=== PATIENT | male | born 1970 | race Caucasian/White ===

== ENCOUNTER 2020-12-07 11:15 | Outpatient (REF) | payer MEDICARE, MEDICAID, SELFPAY ==
[2020-12-07 14:02] LABS: MANUAL DIFF FLAG NO
[2020-12-07 14:12] LABS: Basophils Percent Auto 0.3 % (0-2); Eosinophils Absolute Auto 0.2 X10*3/uL (0.0-0.4); Eosinophils Percent Auto 1.8 % (0-4); Hematocrit 47.2 % (42-52); Hemoglobin 15.7 g/dl (14.0-18.0); Imm Gran Abs Auto 0.02 X10*3/uL (0.00-0.03); Imm Gran Pct Auto 0.2 % (0.0-0.4); Lymphocytes Absolute Auto 2.7 X10*3/uL (1.2-4.9); Lymphocytes Percent Auto 31.1 % (20-40); Mean Corpuscular HGB Conc 33.3 g/dl (31.0-36.0); Mean Corpuscular Hemoglobin 32.1 pg (27.0-33.0); Mean Corpuscular Volume 96.5 fL (80-98); Mean Platelet Volume 11.6 fL (9.4-12.4); Monocytes Absolute Auto 0.5 X10*3/uL (0.1-1.2); Monocytes Percent Auto 6.1 % (2-11); Neutrophils Absolute Auto 5.3 X10*3/uL (2.0-8.3); Neutrophils Percent Auto 60.5 % (45-73); Platelet Count 200 X10*3/uL (160-400); Red Blood Count 4.89 X10*6/uL (4.60-5.80); White Blood Count 8.7 X10*3/uL (4.8-10.8)
[2020-12-07 14:21] LABS: Estimated Average Glucose 128 mg/dL; Hemoglobin A1c % 6.1 %
[2020-12-07 14:40] LABS: Alanine Aminotransferase 36 U/L (0-40); Albumin Level 4.6 g/dL (3.5-5.0); Alkaline Phosphatase 50 U/L (39-117); Anion Gap 16 (12-20); Aspartate Amino Transferase 32 U/L (5-37); Bilirubin Total 0.6 mg/dL (0.0-1.0); Blood Urea Nitrogen 10 mg/dL (9-16); Calcium 9.4 mg/dL (8.4-10.2); Carbon Dioxide 23 mmol/L (22-29); Chloride 105 mmol/L (96-108); Cholesterol 166 mg/dL; Estimated Glomerular Filt Rate > 60; Glucose Random 116 mg/dL (60-115); HDL Cholesterol 29 mg/dL; LDL Cholesterol Calculated 90 mg/dl; Potassium 4.1 mmol/L (3.3-5.1); Sodium 140 mmol/L (135-145); Total Protein 7.1 g/dL (6.5-8.0); Triglycerides 236 mg/dL
[2020-12-07 14:47] LABS: Free T4 (Free Thyroxine) 0.88 ng/dL (0.71-1.85); Thyroid Stimulating Hormone 0.94 uIU/mL (0.32-4.0)
[2020-12-07 16:53] LABS: Folate 8.5 ng/mL (> or = 4.0); Vitamin B12 612 pg/mL (200-900)
== END 2020-12-07 11:16 | disposition home or self-care (01) ==
LOC: HO.HMGCLDS 11:15
PROVIDERS: PCP Internal Medicine; Visit Provider Internal Medicine
DX: E78.00 Pure hypercholesterolemia, unspecified (principal); F20.1 Disorganized schizophrenia; R73.02 Impaired glucose tolerance (oral)
CPT/HCPCS: 36415; 80053; 80061; 82607; 82746; 83036; 84439; 84443; 85025

== ENCOUNTER 2021-11-11 09:32 | Outpatient (REF) | payer MEDICARE, SELFPAY ==
[2021-11-11 12:06] LABS: MANUAL DIFF FLAG NO
[2021-11-11 12:12] LABS: Basophils Absolute Auto 0.1 X10*3/uL (0.0-0.2); Basophils Percent Auto 0.7 % (0-2); Eosinophils Absolute Auto 0.4 X10*3/uL (0.0-0.4); Eosinophils Percent Auto 4.6 % (0-4); Hematocrit 47.8 % (42.0-52.0); Hemoglobin 15.8 g/dl (14.0-18.0); Imm Gran Abs Auto 0.02 X10*3/uL (0.00-0.03); Imm Gran Pct Auto 0.3 % (0.0-0.4); Lymphocytes Absolute Auto 2.8 X10*3/uL (1.2-4.9); Mean Corpuscular HGB Conc 33.1 g/dl (31.0-36.0); Mean Corpuscular Hemoglobin 31.3 pg (27.0-33.0); Mean Corpuscular Volume 94.8 fL (80.0-98.0); Mean Platelet Volume 11.8 fL (9.4-12.4); Monocytes Absolute Auto 0.6 X10*3/uL (0.1-1.2); Monocytes Percent Auto 7.8 % (2-11); Neutrophils Absolute Auto 3.8 x10*3/uL (2.0-8.3); Neutrophils Percent Auto 49.6 % (45-73); Platelet Count 190 X10*3/uL (160-400); Red Blood Count 5.04 X10*6/uL (4.60-5.80); White Blood Count 7.6 X10*3/uL (4.8-10.8)
[2021-11-11 12:49] LABS: Free T4 (Free Thyroxine) 0.99 ng/dL (0.71-1.85); Thyroid Stimulating Hormone 0.56 uIU/mL (0.32-4.0)
[2021-11-11 12:56] LABS: Alanine Aminotransferase 31 U/L (0-40); Albumin Level 4.5 g/dL (3.5-5.0); Alkaline Phosphatase 46 U/L (39-117); Anion Gap 12 (12-20); Aspartate Amino Transferase 23 U/L (5-37); Bilirubin Total 0.6 mg/dL (0.0-1.0); Blood Urea Nitrogen 12 mg/dL (9-16); Calcium 9.6 mg/dL (8.4-10.2); Carbon Dioxide 24 mmol/L (22-29); Chloride 108 mmol/L (96-108); Cholesterol 147 mg/dL; Estimated Average Glucose 148 mg/dL; Estimated Glomerular Filt Rate > 60; Glucose Random 155 mg/dL (60-115); HDL Cholesterol 27 mg/dL; Hemoglobin A1c % 6.8 %; LDL Cholesterol Calculated 79 mg/dl; Potassium 4.1 mmol/L (3.3-5.1); Sodium 140 mmol/L (135-145); Total Protein 6.9 g/dL (6.5-8.0); Triglycerides 208 mg/dL
[2021-11-11 13:03] LABS: Folate 10.6 ng/mL (> or = 4.0); Vitamin B12 574 pg/mL (200-900)
== END 2021-11-11 09:33 | disposition home or self-care (01) ==
LOC: HO.HMGCLDS 09:32
PROVIDERS: Visit Provider Internal Medicine
DX: E78.00 Pure hypercholesterolemia, unspecified (principal); R73.02 Impaired glucose tolerance (oral)
CPT/HCPCS: 36415; 80053; 80061; 82607; 82746; 83036; 84439; 84443; 85025

== ENCOUNTER 2022-02-11 09:46 | Outpatient (REF) | payer MEDICARE, SELFPAY ==
[2022-02-11 13:39] LABS: Creatinine Urine 71.87 mg/dL
[2022-02-11 14:12] LABS: Microalbum/Creatinine Ratio Ur 6.9 ug/mg cr
== END 2022-02-11 09:47 | disposition home or self-care (01) ==
LOC: HO.HMGCLDS 09:46
PROVIDERS: PCP Internal Medicine; Visit Provider Internal Medicine
DX: E11.65 Type 2 diabetes mellitus with hyperglycemia (principal)
CPT/HCPCS: 82043

== ENCOUNTER → 2022-04-10 10:40 | Outpatient (BNVA) | payer MEDICARE, SELFPAY | PROVIDERS: PCP Internal Medicine; Visit Provider Physician Assistant | DX: Z01.818 Encounter for other preprocedural examination (principal); K21.9 Gastro-esophageal reflux disease without esophagitis | CPT/HCPCS: 99202 ==

== ENCOUNTER 2022-08-12 10:40 | Outpatient (REF) | payer OTHER, SELFPAY ==
[2022-08-12 14:12] LABS: MANUAL DIFF FLAG NO
[2022-08-12 14:18] LABS: Basophils Absolute Auto 0.1 X10*3/uL (0.0-0.2); Basophils Percent Auto 0.6 % (0-2); Eosinophils Absolute Auto 0.4 X10*3/uL (0.0-0.4); Hematocrit 48.9 % (42.0-52.0); Hemoglobin 16.3 g/dl (14.0-18.0); Imm Gran Abs Auto 0.03 X10*3/uL (0.00-0.03); Imm Gran Pct Auto 0.4 % (0.0-0.4); Lymphocytes Absolute Auto 2.7 X10*3/uL (1.2-4.9); Lymphocytes Percent Auto 33.7 % (20-40); Mean Corpuscular HGB Conc 33.3 g/dl (31.0-36.0); Mean Corpuscular Volume 96.1 fL (80.0-98.0); Mean Platelet Volume 11.5 fL (9.4-12.4); Monocytes Absolute Auto 0.6 X10*3/uL (0.1-1.2); Monocytes Percent Auto 7.4 % (2-11); Neutrophils Absolute Auto 4.2 x10*3/uL (2.0-8.3); Neutrophils Percent Auto 52.9 % (45-73); Platelet Count 211 X10*3/uL (160-400); Red Blood Count 5.09 X10*6/uL (4.60-5.80); Red Cell Distribution Width 13.1 % (11.0-16.0)
[2022-08-12 14:42] LABS: Alanine Aminotransferase 19 U/L (0-40); Albumin Level 4.8 g/dL (3.5-5.0); Alkaline Phosphatase 45 U/L (39-117); Anion Gap 13 (12-20); Aspartate Amino Transferase 16 U/L (5-37); Bilirubin Total 0.5 mg/dL (0.0-1.0); Blood Urea Nitrogen 17 mg/dL (9-16); Calcium 10.6 mg/dL (8.4-10.2); Carbon Dioxide 28 mmol/L (22-29); Chloride 106 mmol/L (96-108); Cholesterol 138 mg/dL; Estimated Glomerular Filt Rate > 60; Glucose Random 108 mg/dL (60-115); HDL Cholesterol 32 mg/dL; LDL Cholesterol Calculated 81 mg/dl; Potassium 4.5 mmol/L (3.3-5.1); Sodium 142 mmol/L (135-145); Total Protein 7.1 g/dL (6.5-8.0); Triglycerides 127 mg/dL
[2022-08-12 14:55] LABS: Estimated Average Glucose 105 mg/dL; Hemoglobin A1c % 5.3 %
[2022-08-12 15:04] LABS: Creatinine Urine 182.64 mg/dL; Microalbum/Creatinine Ratio Ur 8.7 ug/mg cr
[2022-08-12 15:07] LABS: Free T4 (Free Thyroxine) 0.91 ng/dL (0.71-1.85); Thyroid Stimulating Hormone 0.57 uIU/mL (0.32-4.0)
[2022-08-12 15:14] LABS: Folate 10.6 ng/mL (> or = 4.0); Vitamin B12 1100 pg/mL (200-900)
== END 2022-08-12 10:41 | disposition home or self-care (01) ==
LOC: HO.HMGCLDS 10:40
PROVIDERS: PCP Internal Medicine; Visit Provider Internal Medicine
DX: E11.65 Type 2 diabetes mellitus with hyperglycemia (principal); E78.00 Pure hypercholesterolemia, unspecified
CPT/HCPCS: 36415; 80053; 80061; 82043; 82607; 82746; 83036; 84439; 84443; 85025

== ENCOUNTER 2022-09-05 08:41 | Day surgery (SDC) | payer OTHER, MEDICAID, SELFPAY ==
[2022-09-01 10:29] VITALS: BMI 34.2
--- NOTE | 2022-09-04 10:34 | HO.ANESPROP2 ---
Documented by User: Ethel Carter NP 09/04/22 10:35 HPI - Anesthesia Eval Consult details Narrative: 51yo M for Upper Endoscopy and Colonoscopy [facility] Active Problems Active Problems: All Active Problems (Updated 09/01/22 @ 10:15 by Swetha Perry, RN) Type 2 diabetes mellitus with hyperglycemia (Acute) Medicare annual wellness visit, initial (Acute) Hypercalcemia (Acute) Asthma (Acute) Tobacco abuse (Acute) Hypercholesterolemia (Acute) GERD (gastroesophageal reflux disease) (Acute) Obesity (BMI 30-39.9) (Acute) Schizophrenia (Acute) Past Medical History Medical History (Updated 09/01/22 @ 10:15 by Swetha Perry RN) Annual physical exam Asthma Colon cancer screening GERD (gastroesophageal reflux disease) Hypercholesterolemia Impacted cerumen of both ears Obesity (BMI 30-39.9) Schizophrenia Tobacco abuse Family History Family History Father Medical history unknown Mother CVD (cardiovascular disease) Brother No problems noted. Sister No problems noted. Surgical History Surgical History History of nasal surgery Social History Social History (Updated 04/10/22 @ 10:48 by Estela Frias PA-C) Household Members Other:: lives alone Housing: Apartment Alcohol intake: never Patient Tobacco Use Status: Current everyday Tobacco user Tobacco use type: Cigarette Cigarette Packs Per Day: 1 Cigarettes Per Day: 20.0 Years Smoked: started 14 years old e-Cigarette/Vaping Use: Never Used Second Hand Smoke Exposure: Yes Use of substances other than those prescribed or required for medical reasons: No Are you DNR?: No Advance Directives: No Advance Directives Information Provided: Yes service: No Current occupational status: disabled Cognitive needs: No Hearing needs: No Vision needs: No Meds Allergies Allergy/AdvReac Type Severity Reaction Status Date / Time cantaloupe Allergy Unknown allergy Verified 08/19/22 12:59 cucumber Allergy Unknown allergy Verified 08/19/22 12:59 watermelon Allergy Unknown allergy Verified 08/19/22 12:59 Home Medications Medication Instructions Recorded Confirmed Last Taken Type aripiprazole 30 mg tablet (Abilify) 30 mg PO DAILY 08/14/20 09/01/22 Unknown History bupropion HCl 100 mg tablet,12 hr 100 mg PO DAILY 08/14/20 09/01/22 Unknown History sustained-release (Wellbutrin SR) haloperidol 5 mg tablet 5 mg PO BEDTIME 08/14/20 09/01/22 Unknown History naltrexone 50 mg tablet 50 mg PO DAILY 08/14/20 09/01/22 Unknown History Exam Exam Date and Time: September 04, 2022 1034 Height,Weight and Vital Signs: Height 5 ft 1 in Weight 82.1 kg Pertinent Lab Results Pertinent Lab Results: Laboratory Tests 08/12/22 08/12/22 10:50 10:50 WBC 8.0 Hgb 16.3 Hct 48.9 Plt Count 211 Sodium 142 Potassium 4.5 Chloride 106 Carbon Dioxide 28 BUN 17 H Creatinine 1.25 Assessment and Plan Assessment Anesthesia Assessment: Chart Reviewed Documented by User: Veronica Billings MD 09/05/22 10:12 PMFSH Past Medical History Medical History (Updated 09/01/22 @ 10:15 by Swetha Perry RN) Annual physical exam Asthma Colon cancer screening GERD (gastroesophageal reflux disease) Hypercholesterolemia Impacted cerumen of both ears Obesity (BMI 30-39.9) Schizophrenia Tobacco abuse Family History Family History Father Medical history unknown Mother CVD (cardiovascular disease) Brother No problems noted. Sister No problems noted. Family history of problems with anesthesia: No Surgical History Surgical History History of nasal surgery History of Problems with Anesthesia: No Social History Social History (Updated 04/10/22 @ 10:48 by Estela Frias PA-C) Household Members Other:: lives alone Housing: Apartment Alcohol intake: never Patient Tobacco Use Status: Current everyday Tobacco user Tobacco use type: Cigarette Cigarette Packs Per Day: 1 Cigarettes Per Day: 20.0 Years Smoked: started 14 years old e-Cigarette/Vaping Use: Never Used Second Hand Smoke Exposure: Yes Use of substances other than those prescribed or required for medical reasons: No Are you DNR?: No Advance Directives: No Advance Directives Information Provided: Yes service: No Current occupational status: disabled Cognitive needs: No Hearing needs: No Vision needs: No Meds Allergies Allergy/AdvReac Type Severity Reaction Status Date / Time cantaloupe Allergy Unknown allergy Verified 08/19/22 12:59 cucumber Allergy Unknown allergy Verified 08/19/22 12:59 watermelon Allergy Unknown allergy Verified 08/19/22 12:59 Home Medications Medication Instructions Recorded Confirmed Last Taken Type aripiprazole 30 mg tablet (Abilify) 30 mg PO DAILY 08/14/20 09/01/22 Unknown History bupropion HCl 100 mg tablet,12 hr 100 mg PO DAILY 08/14/20 09/01/22 Unknown History sustained-release (Wellbutrin SR) haloperidol 5 mg tablet 5 mg PO BEDTIME 08/14/20 09/01/22 Unknown History naltrexone 50 mg tablet 50 mg PO DAILY 08/14/20 09/01/22 Unknown History Exam Airway Mallampati Class: II TM Dist: >3cm Neck ROM: Full Heart: rrr Lungs: cts Assessment and Plan Assessment Anesthesia Assessment: Anesthesia Plan Discussed Final Anesthetic Review Family History of Problems with Anesthesia: No History of Problems with Anesthesia: No NPO: Yes ASA Class: III Final Preanesthetic Review: No Changes in Pt Med Stat, Meds/Allgs Chart Reviewed, Consent Obtained/Reviewed and Anes Risks/Benef Reviewed Patient Risk: Intermediate Procedure Risk: Low Anesthetic Plan Anesthetic Plan: MAC: Disposition: Standard PACU
[2022-09-05 09:37] VITALS: BP 132/92; PULSE 89; RESP 16; TEMP 36.5; O2SAT 97; BMI 34.0
[2022-09-05 09:41] VITALS: BMI 34.0
[2022-09-05 10:04] LABS: Glucose, Whole Blood 102 mg/dL (60-115)
--- NOTE | 2022-09-05 10:15 | MHC.SHP ---
Pre-Procedural Eval Section A Date of Service: 09/05/22 The patient is an INPATIENT: No The History & Physical has been completed within 30 days and I have reviewed it.: No Section B Chief Complaint: screening,reflux Details of Present Illness: colon cancer screening, GERD Relevant Family History (Specify if Yes): No Relevant Social History: Tobacco Use Present Medications: see Short Stay Collaborative assessment Medical History: Significant History (Asthma GERD (gastroesophageal reflux disease) Hypercholesterolemia Obesity (BMI 30-39.9) Schizophrenia Tobacco abuse) History of Previous Operations: Relevant previous surgery/procedure and date(s) (hx of nasal surgery) Allergies: Allergies Allergy/AdvReac Type Severity Reaction Status Date / Time cantaloupe Allergy Unknown allergy Verified 08/19/22 12:59 cucumber Allergy Unknown allergy Verified 08/19/22 12:59 watermelon Allergy Unknown allergy Verified 08/19/22 12:59 Review of Systems Sugical H&P ROS: Negative: Constitution, Cardiovascular, Respiratory and Gastrointestinal Exam Surgical H&P Exam: Normal: Heart, Normal: Lungs, Normal: Extremities and Normal: Abdomen Plan Diagnosis/Plan: Unchanged I have reviewed the history and physical and performed a pertinent physical examination on my patient. No changes have occurred unless specified. Time Spent With Patient Time: Total time managing care of this patient today ____ minutes.
[2022-09-05] MEDS: Lactated Ringers 1,000 ML 100 ML IVCONT (10:20)
--- NOTE | 2022-09-05 10:27 | PM.OP ---
Brief Operative Note Date of Service: 09/05/22 Pre-op diagnosis: Colon cancer screening, GERD Post-op diagnosis: other (GERD, GASTRITIS, COLON POLYPS, DIVERTICULOSIS, HEMORRHOIDS) Procedure: EGD WITH BIOPSIES COLONOSCOPY TILL CECUM WITH BIOPSIES AND SNARE POLYPECTOMY Surgeon: Trupti Dominguez MD Anesthesia: MAC Was an Machine Rug Cleaner used for this Procedure?: Yes Machine Rug Cleaner: Larissa Vanegas Estimated blood loss (mL): 0 Pathology: other ( A. small bowel bxs, R/O celiac B. gastric antrum bxs, R/O H. pylori C. G-E junction bxs, R/O Benoit's D. sigmoid polyps (2) E. rectal polyps (2)) Condition: stable Disposition: PACU
--- NOTE | 2022-09-05 10:27 | W.PM.OPN ---
Operative Note Operative Note Date of Service: 09/05/22 Narrative: Pre-op diagnosis: Colon cancer screening, GERD Post-op diagnosis:?other (GERD, GASTRITIS, COLON POLYPS, DIVERTICULOSIS, HEMORRHOIDS) Surgeon: Trupti Dominguez MD Anesthesia:?MAC FLEXIBLE TRANSORAL UPPER GASTROINTESTINAL ENDOSCOPY WITH BIOPSIES AND COLONOSCOPY TILL CECUM WITH BIOPSIES AND SNARE POLYPECTOMY UPPER ENDOSCOPY Consent: Indications for the procedure and potential complications of bleeding, perforation, reaction to medications and missed diagnosis were discussed with the patient and informed consent was obtained. Instrument: Olympus GIF H 190 mid size upper endoscope Monitoring: Vital signs and clinical assessment, continuous EKG monitoring, Pulse oximetry, Carbon Dioxide monitoring and blood pressure monitoring were done throughout the procedure. Procedure: The patient was placed in the left lateral decubitis position and pre-procedure medications were administered and a bite block was placed. The endoscope was inserted into the mouth and advanced under direct vision to the third part of duodenum. A careful inspection was made as the upper endoscope was withdrawn including a retroflexed examination of the proximal stomach; Findings and interventions are described below. Findings: Larynx: Normal Esophagus: GE junction at 38 cms, hiatal hernia 38 to 40 cms. Two 1.5 - 2 cms tongues of suspected Benoit's - biopsied. Stomach: Mild gastric erythema. Biopsies were obtained. Grade 2 flap valve on retroflexed examination of the cardia. Duodenum: Normal bulb and descending duodenum. Biopsies obtained from 3rd part of the duodenum Intervention: Biopsies as noted above COLONOSCOPY PROCEDURE NOTE Consent: Indications for the procedure and potential complications of bleeding, perforation, reaction to medications and missed diagnosis were discussed with the patient and informed consent was obtained. Instrument: Olympus PCF H 190 L variable stiffness pediatric colonoscope Monitoring: Vital signs and clinical assessment, intermittent blood pressure monitoring, continuous EKG monitoring, Pulse oximetry and Carbon Dioxide monitoring were done throughout the procedure. Colon withdrawl time was 21 minutes. Procedure: The patient was placed in the left lateral decubitis position and pre-procedure medications were administered. After a digital rectal examination of the ano-rectum, the video colonoscope was inserted into the rectum and advanced through the colon to the cecum. The colonoscope was slowly withdrawn in a retrograde panoramic fashion and the colon mucosa was carefully examined including a retroflexed view of the rectum. Findings and interventions are described below. Procedure Difficulty: : Without difficulty Findings: Terminal Ileum: Not evaluated Cecum: Partially evaluated due to adherent stools in the right colon Ascending Colon: Partially evaluated due to adherent stools in the right colon Transverse Colon: Normal Descending Colon: Moderate diverticulosis Sigmoid Colon: Two 8 to 12 mm sessile polyps - removed with a cold biopsy and a cold snare. Moderate diverticulosis. Rectum: A 12 mm sessile polyp - removed with a hot snare. A few 5 to 10 mm diminutive appearing polyps 1 removed with a cold biopsy Ano-rectum: Moderate internal hemorrhoids Colon preparation: Good in the transverse and left colon and Fair in the right colon due to adherent stools Impression and Post Procedure Diagnosis: Endoscopy Findings: ESOPHAGUS: Hiatal hernia, possible Benoti's STOMACH: Gastritis DUODENUM: Normal - biopsied to check for celiac sprue Colonoscopy Findings: Four small to medium sized polyps removed Moderate diverticulosis seen in the left colon Moderate hemorrhoids on retroflexed exam. Plan: Await pathology results Patient has an appointment on 09/18/22 in the [facility] with LENY Ybarra. Repeat Colonoscopy interval based on path results - in 1-2 years if polyps are adenomatous and due to fair prep in the right colon. Above findings were reviewed with the patient and GERD, colon polyps and diverticulosis handouts were given in the discharge area
[2022-09-05 11:45] VITALS: BP 105/72; PULSE 88; RESP 16; TEMP 37.6; O2SAT 98
[2022-09-05 12:00] VITALS: BP 127/87; PULSE 85; RESP 16; TEMP 37; O2SAT 97
== END 2022-09-05 12:35 | disposition home or self-care (01) ==
PROVIDERS: PCP Internal Medicine; Visit Provider Internal Medicine Gastroenterology
PROC: (CPT 45385; principal; 2022-09-05 10:20)
DX: Z12.11 Encounter for screening for malignant neoplasm of colon (principal); D12.8 Benign neoplasm of rectum; K63.5 Polyp of colon; K57.30 Diverticulosis of large intestine without perforation or abscess without bleeding; K64.8 Other hemorrhoids; K21.9 Gastro-esophageal reflux disease without esophagitis; K29.50 Unspecified chronic gastritis without bleeding; K44.9 Diaphragmatic hernia without obstruction or gangrene; J45.909 Unspecified asthma, uncomplicated; E78.00 Pure hypercholesterolemia, unspecified; F20.9 Schizophrenia, unspecified; E66.9 Obesity, unspecified; Z68.34 Body mass index [BMI] 34.0-34.9, adult; Z79.84 Long term (current) use of oral hypoglycemic drugs; Z79.899 Other long term (current) drug therapy; F17.210 Nicotine dependence, cigarettes, uncomplicated
CPT/HCPCS: 45385; 45380; 43239; 82947; 88305; 88342

== ENCOUNTER 2022-09-17 10:47 | Outpatient (REF) | payer OTHER, SELFPAY ==
[2022-09-17 14:21] LABS: Calcium 9.3 mg/dL (8.4-10.2)
[2022-09-18 12:39] LABS: Calcium (PTHI) 9.6 mg/dL (8.6-10.3); PTHI 12 pg/mL (16-77)
== END 2022-09-17 10:48 | disposition home or self-care (01) ==
LOC: HO.HMGCLDS 10:47
PROVIDERS: PCP Internal Medicine; Visit Provider Internal Medicine
DX: E11.65 Type 2 diabetes mellitus with hyperglycemia (principal); E83.52 Hypercalcemia
CPT/HCPCS: 36415; 82310; 83970

== ENCOUNTER → 2022-09-18 10:55 | Outpatient (BNVA) | payer OTHER, SELFPAY | PROVIDERS: PCP Internal Medicine; Visit Provider Physician Assistant | DX: Z13.89 Encounter for screening for other disorder (principal) ==

== ENCOUNTER 2023-02-17 13:37 | Outpatient (AMB) | payer OTHER, MEDICAID, SELFPAY ==
--- NOTE | 2023-02-17 13:38 | AM.OFFVISMDC ---
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 Distributor Required: No Accompanied by: career consultant Allergies cantaloupe Allergy (Unknown, Verified 02/17/23 13:39) allergy cucumber Allergy (Unknown, Verified 02/17/23 13:39) allergy watermelon Allergy (Unknown, Verified 02/17/23 13:39) allergy Medication List - Last Reconciled 02/17/23 by Melodie Berman MD aripiprazole (Abilify) 30 mg PO DAILY blood sugar diagnostic ([facility] No Coding strips) As directed check the blood sugars once a day blood-glucose meter ([facility] Autocode Blood Glucose Monitoring System) As directed bupropion HCl (Wellbutrin SR) 100 mg PO DAILY cholecalciferol (vitamin D3) 25 mcg PO DAILY docusate sodium (Colace) 200 mg (2 x 100 mg) PO BEDTIME famotidine 40 mg PO BID fenofibrate 160 mg PO DAILY 90 days haloperidol 5 mg PO BEDTIME lancets ([facility] Lancets) As directed check the blood sugar once a day lisinopril 2.5 mg PO DAILY metformin 500 mg PO BID 30 days methylcellulose (laxative) (Citrucel) 500 mg PO TID naltrexone 50 mg PO DAILY polyethylene glycol 3350 (Miralax) 17 grams PO DAILY Do you need a note to return to daycare/school/sports/work: No HPI SWV HPI Details 52-year-old obese male smoker with diabetes mellitus hypercholesterolemia asthma GERD schizophrenia last seen in December 2022. Patient comes in for subsequent will visit. Colonoscopy up-to-date [facility] Medical History (Updated 02/17/23 @ 14:01 by Melodie Berman MD) Annual physical exam Asthma Colon cancer screening GERD (gastroesophageal reflux disease) Hypercholesterolemia Impacted cerumen of both ears Obesity (BMI 30-39.9) Schizophrenia Tobacco abuse Surgical History History of esophagogastroduodenoscopy (EGD) History of nasal surgery Hx of colonoscopy Family History Father Medical history unknown Mother CVD (cardiovascular disease) Brother No problems noted. Sister No problems noted. Social History (Updated 02/17/23 @ 14:10 by Melodie Berman MD) Household Members Other:: lives alone Housing: Apartment Alcohol intake: never Patient Tobacco Use Status: Current everyday Tobacco user Tobacco use type: Cigarette Cigarette Packs Per Day: 1 Cigarettes Per Day: 15 Years Smoked: started 14 years old e-Cigarette/Vaping Use: Never Used Second Hand Smoke Exposure: Yes service: No Current occupational status: disabled Cognitive needs: No Hearing needs: No Vision needs: No Questionnaire Medicare Wellness Checkup What is your age?: 65-69 (Patient is 52 years of age) What gender do you identify with?: male During the past 4 weeks, how much have you been bothered by emotional problems such as feeling anxious, depressed, irritable, sad or downhearted, and blue?: not at all During the past 4 weeks, has your physical & emotional health limited your social activities with family, friends, neighbors, or groups?: not at all During the past 4 weeks, how much bodily pain have you generally had?: very mild pain During the past 4 weeks, was someone available to help you if you needed & wanted help?: yes, as much as I wanted During the past 4 weeks, what was the hardest physical activity you could do for at least 2 minutes?: very heavy Can you get to places out of walking distance without help? (For eg., can you travel alone on buses, taxis or drive your car?): Yes Can you go shopping for groceries or clothes without someone's help?: No Can you prepare your own meals?: Yes Can you do your housework without help?: Yes Because of any health problems, do you need the help of another person with your personal care needs such as eating, bathing, dressing or getting around the house?: No Can you handle your own money without help?: No During the past 4 weeks, how would you rate your health in general?: good During the past 4 weeks how have things been going for you?: very well; could hardly better Are you having difficulties driving your car?: not applicable, I don't use a car Do you always fasten your seat belt when you are in a car?: yes, usually During past 4 weeks, have you been bothered by the following: never: Falling or dizzy when standing up, Sexual problems?, Trouble eating well?, Teeth or denture problems?, Problems using the telephone? and Tiredness or fatigue? Have you fallen 2 or more times in the past year?: No Are you afraid of falling?: No Are you a smoker?: yes, but I'm not ready to quit During the past 4 weeks, how many drinks of wine, beer, or other alcoholic beverages did you have?: no alcohol at all Do you exercise for about 20 minutes 3 or more times a week?: yes, all the time Have you been given information to help with the following?: yes: Keeping track of your medications? and no: Hazards in your house that might hurt you? How often do you have trouble taking medicines the way you have been told to take them?: I always take medicine as prescribed How confident are you that you can control & manage most of your health problems?: very confident What is your race?: White PHQ-9 Over the last 2 weeks, how often have you been bothered by any of the following problems? 1. Little interest or pleasure in doing things: not at all 2. Feeling down, depressed, or hopeless: not at all 3. Trouble falling or staying asleep, or sleeping too much: not at all 4. Feeling tired or having little energy: not at all 5. Poor appetite or overeating: not at all 6. Feeling bad about yourself - or that you are a failure or have let yourself or your family down: not at all 7. Trouble concentrating on things, such as reading the newspaper or watching television: not at all 8. Moving or speaking so slowly that other people could have noticed. Or the opposite - being so fidgety or restless that you have been moving around a lot more than usual: not at all 9. Thoughts that you would be better off or of hurting yourself in some way: not at all Total score: 0 Depression Screening Interpretation: Negative Source: Developed by Drs. Caesar Barrera, Kajal Zapata, Ian Figueroa and colleagues, with an educational ioana from [employer]. PHQ-2/PHQ-9 PHQ-2 Over the last 2 weeks, how often have you been bothered by any of the following problems? 1. Little interest or pleasure in doing things: not at all 2. Feeling down, depressed, or hopeless: not at all Total score: 0 If score is 3 or greater, continue 3. Trouble falling or staying asleep, or sleeping too much: not at all 4. Feeling tired or having little energy: not at all 5. Poor appetite or overeating: not at all 6. Feeling bad about yourself - or that you are a failure or have let yourself or your family down: not at all 7. Trouble concentrating on things, such as reading the newspaper or watching television: not at all 8. Moving or speaking so slowly that other people could have noticed. Or the opposite - being so fidgety or restless that you have been moving around a lot more than usual: not at all 9. Thoughts that you would be better off or of hurting yourself in some way: not at all Total score: 0 0-4 None-Minimal, 5-9 Mild, 10-14 Moderate, 15-19 Moderately Severe, 20-27 Severe Source: Developed by Drs. Caesar Barrera, Kajal Zapata, Ian Figueroa and colleagues, with an educational ioana from [employer]. Thrive Questionnaire Date Thrive assessed: 02/17/23 I am a: Patient What is your living situation today?: I have a steady place to live Within the past 12 months, did the food you bought not last and you didn't have the money to get more?: Never true Within the past 12 months, did you worry whether your food would run out before you got money to buy more?: Never true Do you have trouble paying for medicines?: No Do you have trouble getting transportation to medical appointments?: No Do you have trouble paying your heating and electricity bill?: No Do you have trouble taking care of your child, family member or friend?: No Do you have trouble with day-to-day activities such as bathing, preparing meals, shopping, managing finances, etc.?: No Are you currently unemployed and looking for a job?: No Are you interested in more education?: No Please select the resources that you would like help with: None Currently or been in a relationship where the following occur: no concerns reported FARIDEH-7 AMB Questionnaire FARIDEH-7 Date FARIDEH - 7 assessed: 02/17/23 Feeling nervous, anxious, or on edge: 0 = Not at all Not being able to stop or control worryin = Not at all Worrying too much about different things: 0 = Not at all Trouble relaxin = Not at all Being so restless that it is hard to sit still: 0 = Not at all Becoming easily annoyed or irritable: 0 = Not at all Feeling afraid as if something awful might happen: 0 = Not at all Total FARIDEH-7 score (0-4 normal; 5-9 mild; 10-14 moderate; 15-21 severe): 0 Source: Developed by Drs. Caesar Barrera, Kajal Zapata, Ian Figueroa and colleagues, with an educational ioana from [employer]. Review of Systems Const Denies poor appetite and Denies weakness Eyes Denies no additional complaints ENT Reports Normal hearing present, Denies dizziness, Denies nasal congestion, Denies tinnitus and Denies sore throat Card Denies chest pain, Denies syncope, Denies rapid heart rate and Denies dyspnea Resp Denies cough and Denies dyspnea GI Denies change in stool character, Reports constipation, Denies diarrhea, Denies nausea and Denies vomiting Denies dysuria and Denies urinary frequency Neuro Reports Normal hearing present, Denies confusion, Denies dizziness, Denies syncope and Denies weakness Psych Denies confusion Physical Exam Vital Signs: Last Vital Signs Pulse 92 02/17/23 13:39 BP 122/80 02/17/23 13:39 Pulse Ox 95 02/17/23 13:39 Oxygen Delivery Method Room Air 02/17/23 13:39 BMI result Body Mass Index 33.0 Const Other: unkempt with dirt interdigital area , lower back area General: No confusion Orientation/consciousness: No confusion HEENT Head: Yes normocephalic Ears: external ears normal and TM's normal bilaterally Face and sinus: Yes normal facial exam Mouth: moist mucous membranes Throat: Yes tonsils normal Eyes Conjunctivae: conjunctivae normal Pupils: Equal, round and reactive pupils present and Pupil accommodation reflex normal Direct Ophthalmoscopy: normal light reflex Neck Neck: No lymphadenopathy Thyroid: Thyroid normal Chest Chest palpation & inspection: normal inspection of the chest Resp Effort & Inspection: normal respiratory effort and no audible wheezes Auscultation: clear to auscultation bilaterally, no crackles, no wheezes and lung sounds not diminished Cardio Rate: regular rate Rhythm: regular rhythm Peripheral pulses: radial pulses present and dorsalis pedis present GI Other: colon test 08/2022 Palpation (GI): no masses Auscultation: normal bowel sounds and normoactive bowel sounds Rectal Exam - Male: Yes deferred Male General Exam: Yes normal external exam Skin General skin exam: no rashes or lesions noted Rashes: no rashes Neuro Other: pedal pulse and pin prick N General: No confusion Cranial nerves: Yes Equal, round and reactive pupils present and Yes Normal hearing present Cognition (Neuro): normal cognition Gait exam (Neuro): Normal gait present Motor exam (neuro): 5/5 motor strength present throughout Deep tendon reflexes (DTR's): Right brachioradialis reflex intensity grade: 2+, Left brachioradialis reflex intensity grade: 2+, Right patellar reflex intensity grade: 2+ and Left patellar reflex intensity grade: 2+ Extrem General: No edema Assessment & Plan Assessment & Plan (1) Encounter for subsequent annual wellness visit (AWV) in Medicare patient: Code(s): Z00.00 - Encounter for general adult medical examination without abnormal findings (2) Tobacco abuse: Code(s): Z72.0 - Tobacco use Plan: Patient is strongly advised to stop! (3) Asthma: Code(s): J45.909 - Unspecified asthma, uncomplicated Plan: Strongly advised to stop smoking! (4) Type 2 diabetes mellitus with hyperglycemia: Comment: Eyesight and surgeryb [facility], Code(s): E11.65 - Type 2 diabetes mellitus with hyperglycemia Plan: Decrease the amount of carbohydrate intake, pasta, bread, rice and potatoes are all sugar and that is aside from all the sweet stuff, remember that fruits are good but they are Sweet also. Hemoglobin A1c goal of less than 6.5 (5) Hypercholesterolemia: Code(s): E78.00 - Pure hypercholesterolemia, unspecified Plan: Avoid fried foods, chicken skin, eggs, butter margarine, pastries and meat. Be it pork or beef they have a lot of cholesterol LDL goal less than 100 triglyceride of less than 150 patient is on fenofibrate 160 mg once a day (6) GERD (gastroesophageal reflux disease): Comment: Reflux precautions continue famotidine Code(s): K21.9 - Gastro-esophageal reflux disease without esophagitis Plan: Avoid the foods that causes that usually spicy foods, tomato products, juices, coffee, soda and foods that your sensitive to. After eating do not lie down, allow 3-4 hours before in lie down. And keep the head of bed above 30 degrees to avoid the acid from going up. (7) Obesity (BMI 30-39.9): Code(s): E66.9 - Obesity, unspecified Plan: Diet and exercise (8) Schizophrenia: Code(s): F20.9 - Schizophrenia, unspecified Qualifiers: Schizophrenia type: disorganized schizophrenia Qualified Code(s): F20.1 - Disorganized schizophrenia Plan: Continue to follow-up with Psychiatry (9) Chronic constipation: Code(s): K59.09 - Other constipation Medications: Changed From metformin 500 mg PO BID 30 days 180 tabs 3RF E11.65 - Type 2 diabetes mellitus with hyperglycemia To metformin 500 mg PO BID 180 tabs 3RF 90 days E11.65 - Type 2 diabetes mellitus with hyperglycemia From methylcellulose (laxative) (Citrucel) 500 mg PO TID 90 tabs 5RF K59.09 - Other constipation To methylcellulose (laxative) (Citrucel) 500 mg PO TID 270 tabs 3RF 90 days K59.09 - Other constipation Refilled fenofibrate 160 mg PO DAILY 90 tabs 2RF 90 days E78.00 - Pure hypercholesterolemia, unspecified lisinopril 2.5 mg PO DAILY 30 tabs 11RF E11.65 - Type 2 diabetes mellitus with hyperglycemia Quality Reporting (2019) Depression/Bipolar (159/160/161/177) PHQ-9: Total score: 0 Coding Level of Care Code Medicare Subsequent (G0439) Diagnoses Encounter for subsequent annual wellness visit (AWV) in Medicare patient Z00.00 Tobacco abuse Z72.0 Asthma J45.909 Type 2 diabetes mellitus with hyperglycemia E11.65 Hypercholesterolemia E78.00 GERD (gastroesophageal reflux disease) K21.9 Obesity (BMI 30-39.9) E66.9 Schizophrenia F20.1 Schizophrenia type: disorganized schizophrenia Chronic constipation K59.09
[2023-02-17 13:39] VITALS: BP 122/80; PULSE 92; O2SAT 95; BMI 33.0
== END 2023-02-17 14:25 | disposition home or self-care (01) ==
PROVIDERS: PCP Internal Medicine; Visit Provider Internal Medicine
DX: Z00.00 Encounter for general adult medical examination without abnormal findings (principal); J45.909 Unspecified asthma, uncomplicated; E11.65 Type 2 diabetes mellitus with hyperglycemia; K21.9 Gastro-esophageal reflux disease without esophagitis; E66.9 Obesity, unspecified; Z72.0 Tobacco use; E78.00 Pure hypercholesterolemia, unspecified; Z68.33 Body mass index [BMI] 33.0-33.9, adult; F20.1 Disorganized schizophrenia; K59.09 Other constipation
CPT/HCPCS: 99213; G0439

== ENCOUNTER 2023-05-26 12:28 | Outpatient (AMB) | payer OTHER, MEDICAID, SELFPAY ==
[2023-05-26 12:32] VITALS: BP 132/60; PULSE 85; O2SAT 96; BMI 32.3
--- NOTE | 2023-05-26 12:32 | A.OFFPC_ITS ---
Vital Signs 05/26/23 12:32 Height 5 ft 1 in Weight 171 lb BMI 32.3 BP 132/60 Blood Pressure Location Lt brachial Position Sitting Pulse 85 Pulse Source Pulse Oximeter Pulse Oximetry (%) 96 Oxygen Delivery Method Room Air Intake Visit Reasons: DM Allergies cantaloupe Allergy (Unknown, Verified 05/26/23 12:32) allergy cucumber Allergy (Unknown, Verified 05/26/23 12:32) allergy watermelon Allergy (Unknown, Verified 05/26/23 12:32) allergy Tobacco use date assessed: 12/22/22 Dental Screening Dental Screen Date: 05/26/23 Did you have a dental visit in the last 12 months?: Yes Did you have a dental problem in the last 6 months where you did not have access to dental care?: No Was dental information given to patient?: Patient has dentist HPI DM HPI Details 52-year-old Obese male smoker with schiz ophrenia, diabetes mellitus controlled asthma hypercholesterolemia GERD coming in for follow-up. Last seen in February having a wellness visit. Patient's colonoscopy is up-to-date. Patient had a COVID vaccine pneumonia vaccine flu vaccine and Shingrix vaccine . patient did see the executive marketing assistant also [facility] Medical History Colon cancer screening Impacted cerumen of both ears Annual physical exam Asthma Tobacco abuse Hypercholesterolemia GERD (gastroesophageal reflux disease) Obesity (BMI 30-39.9) Schizophrenia Surgical History History of esophagogastroduodenoscopy (EGD) Hx of colonoscopy History of nasal surgery Family History Father Medical history unknown Mother CVD (cardiovascular disease) Brother No problems noted. Sister No problems noted. Social History Household Members Other:: lives alone Housing: Apartment Alcohol intake: never Patient Tobacco Use Status: Current everyday Tobacco user Tobacco use type: Cigarette Cigarette Packs Per Day: 1 Cigarettes Per Day: 15 Years Smoked: started 14 years old e-Cigarette/Vaping Use: Never Used Second Hand Smoke Exposure: Yes service: No Current occupational status: disabled Cognitive needs: No Hearing needs: No Vision needs: No Questionnaire PHQ-9 Over the last 2 weeks, how often have you been bothered by any of the following problems? 1. Little interest or pleasure in doing things: not at all 2. Feeling down, depressed, or hopeless: not at all 3. Trouble falling or staying asleep, or sleeping too much: not at all 4. Feeling tired or having little energy: not at all 5. Poor appetite or overeating: not at all 6. Feeling bad about yourself - or that you are a failure or have let yourself or your family down: not at all 7. Trouble concentrating on things, such as reading the newspaper or watching television: not at all 8. Moving or speaking so slowly that other people could have noticed. Or the opposite - being so fidgety or restless that you have been moving around a lot more than usual: not at all 9. Thoughts that you would be better off or of hurting yourself in some way: not at all Total score: 0 Depression Screening Interpretation: Negative Depression Screening Done: Yes Source: Developed by Drs. Caesar Barrera, Kajal Zapata, Ian Figueroa and colleagues, with an educational ioana from [employer]. Thrive Questionnaire Date Thrive assessed: 02/17/23 AUDIT C Alcohol Use Questionnaire (AUDIT-C) 1. How often do you have a drink containing alcohol?: Never 2. How many drinks containing alcohol do you have on a typical day when you are drinking?: 1 or 2 3. How often do you have six or more drinks on one occasion?: Never Total Score: 0 FARIDEH-7 AMB Questionnaire FARIDEH-7 Date FARIDEH - 7 assessed: 02/17/23 Source: Developed by Drs. Caesar Barrera, Kajal Zapata, Ian Figueroa and colleagues, with an educational ioana from [employer]. Physical exam (Primary Care) Vital Signs: Last Vital Signs Pulse 85 05/26/23 12:32 BP 132/60 05/26/23 12:32 Pulse Ox 96 05/26/23 12:32 Oxygen Delivery Method Room Air 05/26/23 12:32 BMI result Body Mass Index 32.3 Tobacco/Smoking Status: Tobacco use Status Tobacco use date assessed 12/22/22 05/26/23 12:33 Patient Tobacco Use Status Current everyday Tobacco 05/26/23 12:33 Tobacco use type Cigarette 05/26/23 12:33 e-Cigarette/Vaping Use Never Used 05/26/23 12:33 PHQ-9: PHQ-9 Score PHQ-9: Total score 0 05/26/23 12:42 Depression Screening Interpretation: Negative Thrive Assessment: Date of Thrive Assessment Date Thrive assessed 02/17/23 05/26/23 12:33 Const General: alert; No acute distress Eyes Conjunctivae: conjunctivae normal Resp Auscultation: clear to auscultation bilaterally Cardio Rate: regular rate Rhythm: regular rhythm GI Inspection: Yes normal to inspection Extrem General: Yes normal to inspection and No edema Results AMB Hemoglobin A1c AMB Hemoglobin A1c 5.6 % Last Edit by CELESTINE Forte on 05/26/23 12:53 Assessment and Plan Assessment & Plan (1) Type 2 diabetes mellitus with hyperglycemia: Comment: Eyesight and surgeryb [facility], Code(s): E11.65 - Type 2 diabetes mellitus with hyperglycemia Plan: Decrease the amount of carbohydrate intake, pasta, bread, rice and potatoes are all sugar and that is aside from all the sweet stuff, remember that fruits are good but they are Sweet also. Hemoglobin A1c goal of less than 6.5 patient is on metformin 500 mg twice a day (2) Tobacco abuse: Code(s): Z72.0 - Tobacco use Plan: Patient is strongly advised to stop smoking! still smoking 1 pack a day (3) Asthma: Code(s): J45.909 - Unspecified asthma, uncomplicated Plan: Continue with inhaler as needed but patient needs to stop smoking (4) Hypercholesterolemia: Code(s): E78.00 - Pure hypercholesterolemia, unspecified Plan: Avoid fried foods, chicken skin, eggs, butter margarine, pastries and meat. Be it pork or beef they have a lot of cholesterol LDL goal of less than 100 and triglyceride of less than 150. Patient is advised to get blood work in 3 months (5) GERD (gastroesophageal reflux disease): Comment: Reflux precautions continue famotidine Code(s): K21.9 - Gastro-esophageal reflux disease without esophagitis Plan: Avoid the foods that causes that usually spicy foods, tomato products, juices, coffee, soda and foods that your sensitive to. After eating do not lie down, allow 3-4 hours before in lie down. And keep the head of bed above 30 degrees to avoid the acid from going up. (6) Obesity (BMI 30-39.9): Code(s): E66.9 - Obesity, unspecified Plan: Diet and exercise patient has been losing weight , great! (7) Schizophrenia: Code(s): F20.9 - Schizophrenia, unspecified Qualifiers: Schizophrenia type: disorganized schizophrenia Qualified Code(s): F20.1 - Disorganized schizophrenia Plan: Continue to follow-up with psychiatry and counseling Orders: Orders AMB Hemoglobin A1c Today E11.65 - Type 2 diabetes mellitus with hyperglycemia Lipid Panel 3 Months E11.65 - Type 2 diabetes mellitus with hyperglycemia, E78.00 - Pure hypercholesterolemia, unspecified Creatinine Urine 3 Months E11.65 - Type 2 diabetes mellitus with hyperglycemia Vitamin B12 and Folate 3 Months E11.65 - Type 2 diabetes mellitus with hyperglycemia Prostate Specific Antigen Scr 3 Months E11.65 - Type 2 diabetes mellitus with hyperglycemia Complete Blood Count Auto Diff 3 Months E11.65 - Type 2 diabetes mellitus with hyperglycemia Comprehensive Met. Panel 3 Months E11.65 - Type 2 diabetes mellitus with hyperglycemia Free T4 (Free Thyroxine) 3 Months E11.65 - Type 2 diabetes mellitus with hyperglycemia Thyroid Stimulating Hormone 3 Months E11.65 - Type 2 diabetes mellitus with hyperglycemia Microalbumin, Random (w Creat) 3 Months E11.65 - Type 2 diabetes mellitus with hyperglycemia Hemoglobin A1c 3 Months E11.65 - Type 2 diabetes mellitus with hyperglycemia Coding Level of Care Code Est Pt Level 4 (03020) Diagnoses Type 2 diabetes mellitus with hyperglycemia E11.65 Tobacco abuse Z72.0 Asthma J45.909 Hypercholesterolemia E78.00 GERD (gastroesophageal reflux disease) K21.9 Obesity (BMI 30-39.9) E66.9 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
== END 2023-05-26 12:56 | disposition home or self-care (01) ==
PROVIDERS: PCP Internal Medicine; Visit Provider Internal Medicine
DX: E11.65 Type 2 diabetes mellitus with hyperglycemia (principal); F20.1 Disorganized schizophrenia; Z72.0 Tobacco use; J45.909 Unspecified asthma, uncomplicated; E78.00 Pure hypercholesterolemia, unspecified; K21.9 Gastro-esophageal reflux disease without esophagitis; E66.9 Obesity, unspecified
CPT/HCPCS: 83036; 99214

== ENCOUNTER 2023-06-15 10:46 | Outpatient (AMB) | payer OTHER, MEDICAID, SELFPAY ==
--- NOTE | 2023-06-15 10:54 | MHC.OFFVIS ---
Intake Vital Signs 06/15/23 10:55 Height 5 ft 1 in Weight 166 lb BMI 31.4 BP 140/92 H Blood Pressure Location Lt brachial Position Sitting Pulse 90 Intake Visit Reasons: Discuss Rep. [place] Intake Note: Patient follow up for discuss pre colonoscopy screening. Patient denies any GI issues. 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 by: Employee Allergies cantaloupe Allergy (Unknown, Verified 06/15/23 10:54) allergy cucumber Allergy (Unknown, Verified 06/15/23 10:54) allergy watermelon Allergy (Unknown, Verified 06/15/23 10:54) allergy Medication List - Last Reconciled 06/15/23 by Estela Frias PA-C aripiprazole (Abilify) 30 mg PO DAILY bisacodyl (Dulcolax (bisacodyl)) 20 mg (4 x 5 mg) PO ONCE 1 day blood sugar diagnostic ([facility] No Coding strips) As directed check the blood sugars once a day blood-glucose meter ([facility] Autocode Blood Glucose Monitoring System) As directed bupropion HCl (Wellbutrin SR) 100 mg PO DAILY cholecalciferol (vitamin D3) 25 mcg PO DAILY docusate sodium 200 mg (2 x 100 mg) PO BEDTIME 30 days famotidine 40 mg PO BID fenofibrate 160 mg PO DAILY 90 days haloperidol 5 mg PO BEDTIME lancets ([facility] Lancets) As directed check the blood sugar once a day lisinopril 2.5 mg PO DAILY metformin 500 mg PO BID 90 days methylcellulose (laxative) (Citrucel) 500 mg PO TID 90 days naltrexone 50 mg PO DAILY polyethylene glycol 3350 (Miralax) 17 grams PO DAILY polyethylene glycol 3350 (Miralax) 238 grams PO ONCE PRN 1 day HPI HPI Comments History of Present Illness Details A 52 y/o male here to discuss colonoscopy-previous done 08/2022- revealing adenomas- inadequate prep He he with that he did not drink the entire prep of GoLYTELY. 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 Sister No problems noted. Social History Household Members Other:: lives alone Housing: Apartment Alcohol intake: never Patient Tobacco Use Status: Current everyday Tobacco user Tobacco use type: Cigarette Cigarette Packs Per Day: 1 Cigarettes Per Day: 15 Years Smoked: started 14 years old e-Cigarette/Vaping Use: Never Used Second Hand Smoke Exposure: Yes service: No Current occupational status: disabled Cognitive needs: No Hearing needs: No Vision needs: No Review of Systems Const All systems reviewed & are unremarkable except as noted in HPI and below Card Denies chest pain and Denies dyspnea Resp Denies dyspnea GI Denies abdominal pain, Denies hematochezia, Denies change in bowel habits and Denies heartburn Physical Exam Vital Signs: Last Vital Signs Pulse 90 06/15/23 10:55 BP 140/92 H 06/15/23 10:55 BMI result Body Mass Index 31.4 Const General: cooperative, healthy appearing, comfortable and no acute distress Orientation/consciousness: patient oriented x3 Limitations: no limitations Eyes Conjunctivae: conjunctival abnormal (The conjunctiva injected bilaterally no drainage) Resp Effort & Inspection: normal respiratory effort and able to speak in complete sentences Auscultation: clear to auscultation bilaterally, rhonchi and no wheezes Cardio Rate: regular rate Rhythm: regular rhythm GI Palpation (GI): Soft to palpation and nontender Auscultation: normal bowel sounds Neuro General: patient oriented x3 Extrem General: Yes full ROM Psych Appearance: grossly normal Mental Status: mental status grossly normal Speech and movement: Normal speech and movement present and Clear speech present Affect: normal affect Attitude: cooperative Thought process: Normal thought process present Thought content: Normal thought content present Insight: Good insight present (Psych) Judgement: Good judgement present (Psych) Assessment & Plan Assessment & Plan (1) Tubular adenoma: Comment: 2, adenoma 2021-inadequate Code(s): D36.9 - Benign neoplasm, unspecified site Plan: Repeat polyp colonoscopy extended prep (2) Hyperplastic colon polyp: Comment: A. Small bowel, biopsy: Small bowel mucosa with preserved villi and no specific change; no evidence of celiac disease. B. Gastric antrum, biopsy: Gastric antral/body mucosa with focal ectatic vessels and minimal chronic inactive gastritis; negative for H pylori, intestinal metaplasia and dysplasia. C. Gastroesophageal junction, biopsy: Columnar mucosa with ectatic vessels and mild chronic inactive inflammation; no squamous mucosa; negative for intestinal metaplasia and dysplasia. D. Colon, sigmoid, 2 polyps: Hyperplastic polyps, two. E. Colon, 2 rectal polyps: Tubular adenoma (one); negative for high-grade dysplasia and carcinoma, and hyperplastic polyp (2 Code(s): K63.5 - Polyp of colon Plan Polyp surveillance colonoscopy MiraLax Gatorade extended prep-MiraLax 17 g daily for 7 days prior to his prep day He will omit metformin evening before procedure as well as morning of procedure No diabetes medications day of procedure Orders: Orders Colonoscopy - GI Use Only Today D36.9 - Benign neoplasm, unspecified site, K63.5 - Polyp of colon Medications: New polyethylene glycol 3350 (Miralax) Take as directed by mouth the day before your procedure. 238 grams PO ONCE 1 day PRN 238 grams 0RF laxative effect bisacodyl (Dulcolax (bisacodyl)) Day before procedure, prep day Take 4 tablets by mouth upon awakening followed by large glass of water 20 mg (4 x 5 mg) PO ONCE 1 day 4 tabs 0RF colonoscopy prep Z12.11 - Encounter for screening for malignant neoplasm of colon Patient Instructions: Pleasant 52-year-old male follows up to discuss repeat colonoscopy due to inadequate prep MiraLax Gatorade prep He will extend prep but taking MiraLax 17 g daily for 7 days prior to his prep day He will omit metformin evening before procedure as well as morning of procedure Encouraged to call with any questions or concerns Appreciate the opportunity assist in the care 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
[2023-06-15 10:55] VITALS: BP 140/92; PULSE 90; BMI 31.4
== END 2023-06-15 12:15 | disposition home or self-care (01) ==
PROVIDERS: Visit Provider Physician Assistant
DX: D36.9 Benign neoplasm, unspecified site (principal); K63.5 Polyp of colon
CPT/HCPCS: 99213

== ENCOUNTER → 2023-06-15 10:46 | Outpatient (BNVA) | payer OTHER, SELFPAY | PROVIDERS: Visit Provider Physician Assistant ==

== ENCOUNTER 2023-08-25 12:44 | Outpatient (AMB) | payer OTHER, SELFPAY ==
--- NOTE | 2023-08-25 12:45 | A.OFFPC_ITS ---
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 Allergies cantaloupe Allergy (Unknown, Verified 08/25/23 12:46) allergy cucumber Allergy (Unknown, Verified 08/25/23 12:46) allergy watermelon Allergy (Unknown, Verified 08/25/23 12:46) allergy Medication List - Last Reconciled 08/25/23 by Melodie Berman MD aripiprazole (Abilify) 30 mg PO DAILY bisacodyl (Dulcolax (bisacodyl)) 20 mg (4 x 5 mg) PO ONCE 1 day blood sugar diagnostic ([facility] No Coding strips) As directed check the blood sugars once a day blood sugar diagnostic ([facility] Guide test strips) As directed check BS QD blood-glucose meter ([facility] Autocode Blood Glucose Monitoring System) As directed bupropion HCl (Wellbutrin SR) 100 mg PO DAILY cholecalciferol (vitamin D3) 25 mcg PO DAILY docusate sodium 200 mg (2 x 100 mg) PO BEDTIME 30 days famotidine 40 mg PO BID fenofibrate 160 mg PO DAILY 90 days haloperidol 5 mg PO BEDTIME lancets ([facility] Softclix Lancets) As directed lancets ([facility] Lancets) As directed check the blood sugar once a day lisinopril 2.5 mg PO DAILY metformin 500 mg PO BID 90 days methylcellulose (laxative) (Citrucel) 500 mg PO TID 90 days naltrexone 50 mg PO DAILY polyethylene glycol 3350 (Miralax) 17 grams PO DAILY polyethylene glycol 3350 (Miralax) 238 grams PO ONCE PRN 1 day Tobacco use date assessed: 08/25/23 Dental Screening Dental Screen Date: 08/25/23 Did you have a dental visit in the last 12 months?: Yes Did you have a dental problem in the last 6 months where you did not have access to dental care?: No Was dental information given to patient?: Patient has dentist HPI PE HPI Details 52-year-old obese male smoker with contr olled diabetes mellitus asthma hypercholesterolemia GERD schizophrenia coming in for physical exam last seen in May 2023. Colonoscopy is up-to-date August 2022 patient did meet the Gastroenterology June 2023 inadequate prep patient is going to have another/repeat colonoscopy. [facility] Medical History (Updated 08/25/23 @ 13:06 by Melodie Berman MD) Annual physical exam Colon cancer screening Impacted cerumen of both ears Asthma Tobacco abuse Hypercholesterolemia GERD (gastroesophageal reflux disease) Obesity (BMI 30-39.9) Schizophrenia Surgical History History of esophagogastroduodenoscopy (EGD) Hx of colonoscopy History of nasal surgery Family History Father Medical history unknown Mother CVD (cardiovascular disease) Brother No problems noted. Sister No problems noted. Social History (Updated 08/25/23 @ 13:14 by Melodie Berman MD) Household Members Other:: lives alone Housing: Apartment Alcohol intake: never Patient Tobacco Use Status: Current everyday Tobacco user Tobacco use type: Cigarette Cigarette Packs Per Day: 1 Cigarettes Per Day: 15 Years Smoked: started 14 years old, 1 pack a day (08/2023) e-Cigarette/Vaping Use: Never Used Second Hand Smoke Exposure: Yes service: No Current occupational status: disabled Cognitive needs: No Hearing needs: No Vision needs: No Questionnaire PHQ-9 Over the last 2 weeks, how often have you been bothered by any of the following problems? 1. Little interest or pleasure in doing things: not at all 2. Feeling down, depressed, or hopeless: not at all 3. Trouble falling or staying asleep, or sleeping too much: not at all 4. Feeling tired or having little energy: not at all 5. Poor appetite or overeating: not at all 6. Feeling bad about yourself - or that you are a failure or have let yourself or your family down: not at all 7. Trouble concentrating on things, such as reading the newspaper or watching television: not at all 8. Moving or speaking so slowly that other people could have noticed. Or the opposite - being so fidgety or restless that you have been moving around a lot more than usual: not at all 9. Thoughts that you would be better off or of hurting yourself in some way: not at all Total score: 0 Depression Screening Interpretation: Negative Depression Screening Done: Yes Source: Developed by Drs. Caesar Barrera, Ian East and colleagues, with an educational ioana from [employer]. Thrive Questionnaire Date Thrive assessed: 08/25/23 I am a: Patient What is your living situation today?: I have a steady place to live Within the past 12 months, did the food you bought not last and you didn't have the money to get more?: Never true Within the past 12 months, did you worry whether your food would run out before you got money to buy more?: Never true Do you have trouble paying for medicines?: No Do you have trouble getting transportation to medical appointments?: No Do you have trouble paying your heating and electricity bill?: No Do you have trouble with day-to-day activities such as bathing, preparing meals, shopping, managing finances, etc.?: No Are you currently unemployed and looking for a job?: No Are you interested in more education?: No AUDIT C Alcohol Use Questionnaire (AUDIT-C) 1. How often do you have a drink containing alcohol?: Never 2. How many drinks containing alcohol do you have on a typical day when you are drinking?: 1 or 2 3. How often do you have six or more drinks on one occasion?: Never Total Score: 0 FARIDEH-7 AMB Questionnaire FARIDEH-7 Date FARIDEH - 7 assessed: 08/25/23 Feeling nervous, anxious, or on edge: 0 = Not at all Not being able to stop or control worryin = Not at all Worrying too much about different things: 0 = Not at all Trouble relaxin = Not at all Being so restless that it is hard to sit still: 0 = Not at all Becoming easily annoyed or irritable: 0 = Not at all Feeling afraid as if something awful might happen: 0 = Not at all Total FARIDEH-7 score (0-4 normal; 5-9 mild; 10-14 moderate; 15-21 severe): 0 Source: Developed by Kajal Guan Kurt Kroenke and colleagues, with an educational ioana from [employer]. Review of Systems Const Denies poor appetite and Denies weakness Eyes Denies no additional complaints ENT Reports Normal hearing present, Denies dizziness, Denies nasal congestion, Denies tinnitus and Denies sore throat Card Denies chest pain, Denies syncope, Denies rapid heart rate and Denies dyspnea Resp Denies cough and Denies dyspnea GI Denies change in stool character, Reports constipation, Denies diarrhea, Denies nausea and Denies vomiting Denies dysuria and Denies urinary frequency Neuro Reports Normal hearing present, Denies confusion, Denies dizziness, Denies syncope and Denies weakness Psych Denies confusion Physical exam (Primary Care) Vital Signs: Last Vital Signs Pulse 88 08/25/23 12:50 BP 128/82 08/25/23 12:50 Pulse Ox 98 08/25/23 12:50 Oxygen Delivery Method Room Air 08/25/23 12:50 BMI result Body Mass Index 33.1 Tobacco/Smoking Status: Tobacco use Status Tobacco use date assessed 08/25/23 08/25/23 12:47 Patient Tobacco Use Status Current everyday Tobacco 08/25/23 12:47 Tobacco use type Cigarette 08/25/23 12:47 e-Cigarette/Vaping Use Never Used 08/25/23 12:47 PHQ-9: PHQ-9 Score PHQ-9: Total score 0 08/25/23 12:55 Depression Screening Interpretation: Negative Thrive Assessment: Date of Thrive Assessment Date Thrive assessed 08/25/23 08/25/23 12:47 Const General: No confusion Orientation/consciousness: No confusion HENMT Head: Yes normocephalic Ears: external ears normal and TM's normal bilaterally Face and sinus: Yes normal facial exam Mouth: moist mucous membranes Throat: Yes tonsils normal Eyes Conjunctivae: conjunctivae normal Pupils: Equal, round and reactive pupils present and Pupil accommodation reflex normal Direct Ophthalmoscopy: normal light reflex Neck Neck: No lymphadenopathy Thyroid: Thyroid normal Chest Chest palpation & inspection: normal inspection of the chest Resp Effort & Inspection: normal respiratory effort and no audible wheezes Auscultation: clear to auscultation bilaterally, no crackles, no wheezes and lung sounds not diminished Cardio Rate: regular rate Rhythm: regular rhythm Peripheral pulses: radial pulses present and dorsalis pedis present GI Palpation (GI): no masses Auscultation: normal bowel sounds and normoactive bowel sounds Rectal Exam - Male: Yes deferred Skin General skin exam: no rashes or lesions noted Rashes: no rashes Neuro General: No confusion Cranial nerves: Yes Equal, round and reactive pupils present and Yes Normal hearing present Cognition (Neuro): normal cognition Gait exam (Neuro): Normal gait present Motor exam (neuro): 5/5 motor strength present throughout Deep tendon reflexes (DTR's): Right brachioradialis reflex intensity grade: 2+, Left brachioradialis reflex intensity grade: 2+, Right patellar reflex intensity grade: 2+ and Left patellar reflex intensity grade: 2+ Extrem General: No edema Results AMB Hemoglobin A1c AMB Hemoglobin A1c 6.0 % Last Edit by CELESTINE Amador on 08/25/23 12:58 Results Reviewed Results Reviewed: Laboratory Last Values Hgb A1c (Clinic) 6.0 % (4.0-6.0) 08/25/23 12:45 Assessment and Plan Assessment & Plan (1) Annual physical exam: Code(s): Z00.00 - Encounter for general adult medical examination without abnormal findings (2) Tubular adenoma: Comment: 2, adenoma 2021-inadequate Code(s): D36.9 - Benign neoplasm, unspecified site Plan: Patient has met with the Gastroenterology June 2023 and will have a repeat colonoscopy (3) Type 2 diabetes mellitus with hyperglycemia: Comment: Eyesight and surgeryb [facility], Code(s): E11.65 - Type 2 diabetes mellitus with hyperglycemia Plan: Decrease the amount of carbohydrate intake, pasta, bread, rice and potatoes are all sugar and that is aside from all the sweet stuff, remember that fruits are good but they are Sweet also. Hemoglobin A1c goal of less than 6.5 patient is on metformin 500 mg twice a day (4) Tobacco abuse: Code(s): Z72.0 - Tobacco use Plan: Strongly advised to stop smoking! (5) Asthma: Code(s): J45.909 - Unspecified asthma, uncomplicated Plan: Patient is strongly advised to stop smoking! (6) Hypercholesterolemia: Code(s): E78.00 - Pure hypercholesterolemia, unspecified Plan: Avoid fried foods, chicken skin, eggs, butter margarine, pastries and meat. Be it pork or beef they have a lot of cholesterol LDL goal of less than 100 and triglyceride of less than 150 will need repeat blood work patient on fenofibrate 160 mg once a day (7) GERD (gastroesophageal reflux disease): Comment: Reflux precautions continue famotidine Code(s): K21.9 - Gastro-esophageal reflux disease without esophagitis Plan: Avoid the foods that causes that usually spicy foods, tomato products, juices, coffee, soda and foods that your sensitive to. After eating do not lie down, allow 3-4 hours before in lie down. And keep the head of bed above 30 degrees to avoid the acid from going up. 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 - Disorganized schizophrenia Plan: Continue to follow-up with psychiatry Orders: Orders AMB Hemoglobin A1c Today E11.65 - Type 2 diabetes mellitus with hyperglycemia Medications: New lancets (Accu-Chek Softclix Lancets) As directed 100 ea 3RF E11.65 - Type 2 diabetes mellitus with hyperglycemia blood sugar diagnostic (Accu-Chek Guide test strips) As directed check BS QD 100 ea 3RF E11.65 - Type 2 diabetes mellitus with hyperglycemia Coding Level of Care Code Est Pt Prev Care 40-64y(61443) Diagnoses Annual physical exam Z00.00 Tubular adenoma D36.9 Type 2 diabetes mellitus with hyperglycemia E11.65 Tobacco abuse Z72.0 Asthma J45.909 Hypercholesterolemia E78.00 GERD (gastroesophageal reflux disease) K21.9 Obesity (BMI 30-39.9) E66.9 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
[2023-08-25 12:50] VITALS: BP 128/82; PULSE 88; O2SAT 98; BMI 33.1
== END 2023-08-25 13:25 | disposition home or self-care (01) ==
PROVIDERS: Visit Provider Internal Medicine
DX: Z00.00 Encounter for general adult medical examination without abnormal findings (principal); D36.9 Benign neoplasm, unspecified site; E11.65 Type 2 diabetes mellitus with hyperglycemia; F20.1 Disorganized schizophrenia; Z72.0 Tobacco use; J45.909 Unspecified asthma, uncomplicated; E78.00 Pure hypercholesterolemia, unspecified; K21.9 Gastro-esophageal reflux disease without esophagitis; E66.9 Obesity, unspecified
CPT/HCPCS: 83036; 99396

== ENCOUNTER 2023-08-26 13:54 | Outpatient (REF) | payer OTHER, SELFPAY | END 2023-08-26 13:55 | disposition home or self-care (01) | LOC: HO.CT 13:54 | PROVIDERS: PCP Internal Medicine; Visit Provider Nurse Practitioner Family | DX: Z13.89 Encounter for screening for other disorder (principal) ==

== ENCOUNTER 2023-09-03 09:58 | Outpatient (AMB) | payer OTHER, SELFPAY ==
--- NOTE | 2023-09-03 10:17 | MHC.OFFVIS ---
Intake Intake Visit Reasons: LDCT [place] Allergies cantaloupe Allergy (Unknown, Verified 08/25/23 12:46) allergy cucumber Allergy (Unknown, Verified 08/25/23 12:46) allergy watermelon Allergy (Unknown, Verified 08/25/23 12:46) allergy HPI HPI Comments History of Present Illness Details Alize is a pleasant 52 year old male, current cigar and cigarette smoker with a 38 PYH. Patient has been smoking since age 14 for 38 years at 1 ppd. Admits to occasional marijuana use. Denies exposure to chemicals or substances like asbestos. Admits second hand smoke exposure. Denies known family history of lung cancer. Denies personal history of cancers. Denies chest CT in last year. Denies recent travel outside the [place]. Denies testing positive for COVID. Admits receiving COVID Vaccine. Denies fever, chills, chest pain, new cough, hemoptysis or unintentional weight loss. Lung Cancer Screening Questionnaire reviewed with patient by provider. Shared Decision Making Completed. Discussed in detail with patient, the risk versus benefit of LDCT screening. Patient in agreement of proceeding with scan. [facility] Medical History (Updated 09/03/23 @ 10:54 by Dafne Contreras NP) Annual physical exam Colon cancer screening Impacted cerumen of both ears Asthma Tobacco abuse Hypercholesterolemia GERD (gastroesophageal reflux disease) Obesity (BMI 30-39.9) Schizophrenia Surgical History History of esophagogastroduodenoscopy (EGD) Hx of colonoscopy History of nasal surgery Family History Father Medical history unknown Mother CVD (cardiovascular disease) Brother No problems noted. Sister No problems noted. Social History (Updated 09/03/23 @ 10:55 by Dafne Contreras NP) Household Members Other:: lives alone Housing: Apartment Alcohol intake: never Patient Tobacco Use Status: Current everyday Tobacco user Tobacco use type: Cigarette Cigarette Packs Per Day: 1 Years Smoked: started 14 years old, 1 pack a day (08/2023) e-Cigarette/Vaping Use: Never Used Second Hand Smoke Exposure: Yes service: No Current occupational status: disabled Cognitive needs: No Hearing needs: No Vision needs: No Assessment & Plan Assessment & Plan (1) Nicotine dependence, cigarettes, uncomplicated: Code(s): F17.210 - Nicotine dependence, cigarettes, uncomplicated Plan Shared decision-making visit completed today via telehealth visit. This patient meets criteria for LDCT for lung cancer screening purposes and is asymptomatic. Offered smoking cessation. Patient has been scheduled for a low dose chest CT for screening purposes at [facility]. We discussed how the results will be obtained depending on CT findings. RADS 1 and RADS 2 will receive a letter with results and will follow up for annual LDCT. Patient informed they will be contacted at later date to schedule upcoming LDCT scan. RADS 3 and RADS 4 will receive a telephone call, or an office visit after reviewing case at our Lung Cancer Conference to determine when the next LDCT will be scheduled or further interventions that may be needed. Discussed importance of screening program and compliance with yearly LDCT scan as scheduled. Risks, benefits, and alternatives were discussed in detail and patient agrees to proceed. Risks discussed include but are not limited to: radiation exposure and possibility of additional intervention for benign disease. Benefits include detection of lung cancer at an early stage. A copy of today's visit and LDCT results will be sent to patient's PCP. Incidental findings on LDCT are PCP's responsibility. If there are incidental findings, our office will ensure that PCP office is aware of these findings. All questions were answered and patient is in agreement of plan Telehealth Telehealth Location of provider rendering services: practice address Location of patient: address on file Patient Identification confirmed using: Name, : Yes Telehealth method: voice only Patient verbally consented to treatment: Yes Patient verbally consented to billing insurance company: Yes Patient informed of any privacy concerns related to visit: Yes Coding Level of Care Code Lung Cancer Screening G0296 Diagnoses Nicotine dependence, cigarettes, uncomplicated F17.210
== END 2023-09-03 10:52 | disposition home or self-care (01) ==
LOC: HO.HPS 09:58
PROVIDERS: PCP Internal Medicine; Referring Provider Internal Medicine; Visit Provider Nurse Practitioner Family
DX: F17.210 Nicotine dependence, cigarettes, uncomplicated (principal)
CPT/HCPCS: G0296

== ENCOUNTER → 2023-09-03 09:58 | Outpatient (BNVA) | payer OTHER, SELFPAY | PROVIDERS: PCP Internal Medicine; Visit Provider Nurse Practitioner Family | DX: F17.210 Nicotine dependence, cigarettes, uncomplicated (principal) | CPT/HCPCS: G0296 ==

== ENCOUNTER 2023-09-04 10:43 | Outpatient (REF) | payer OTHER, SELFPAY ==
--- NOTE | ~2023-09-04 | CT_ITS ---
EXAMINATION: CT CHEST LOW-DOSE SCREENING WITHOUT CONTRAST HISTORY: Asymptomatic patient meeting criteria for lung screening. PATIENT PACK-YEAR HISTORY: 36 Current Smoker: Yes If former smoker, years since quitting: COMPARISON: None available. TECHNIQUE: Multidetector volumetric non-contrast CT imaging of the chest was performed using low dose screening CT technique. Axial thin section 0.625 mm reformations in soft tissue and lung windows were obtained. Sagittal and coronal reformations were obtained. Axial MIP images were also created and reviewed. RECONSTRUCTED WIDTH: 1.25 mm x 1.25 mm TOTAL EXAM DLP: 63 mGy-cm CTDIvol: 1.33 mGy FINDINGS: LUNGS: Mild centrilobular emphysema. No suspicious pulmonary nodule. No focal consolidation. Central airways are patent. PLEURA: No pleural effusion. LYMPH NODES: No bulky mediastinal, hilar or axillary lymphadenopathy. MEDIASTINUM: Great vessels are of normal caliber. Heart size is normal. Trace pericardial effusion. CORONARY ARTERY CALCIFICATIONS: Mild. CHEST WALL/BREASTS: No acute abnormality. UPPER ABDOMEN: This study was performed without contrast and with lower than standard dose, reducing the sensitivity for detection of small lesions in the upper abdomen. OSSEOUS STRUCTURES: No destructive bone lesions. CT/CT lung screening IMPRESSION: No suspicious pulmonary nodule. LUNG-RADS CATEGORY ASSESSMENT: 1. Negative. No nodules or definitely benign nodules. Continue annual screening with low-dose CT in 12 months. Probability of malignancy less than 1%. INCIDENTAL FINDINGS (S CATEGORY): Finding: No incidental findings. Significance category: Normal or normal variant. RECOMMENDATION: Low dose lung CT. overall in 1 year. Visual estimate of coronary calcified plaque burden: Mild. However, this exam cannot replace a dedicated cardiac CT calcium score for accurate assessment. LUNG-RADS CATEGORY: 1 -- NEGATIVE
== END 2023-09-04 10:44 | disposition home or self-care (01) ==
LOC: HO.CT 10:43
PROVIDERS: PCP Internal Medicine; Visit Provider Nurse Practitioner Family
DX: Z12.2 Encounter for screening for malignant neoplasm of respiratory organs (principal); F17.210 Nicotine dependence, cigarettes, uncomplicated
CPT/HCPCS: 71271

== ENCOUNTER 2023-09-10 10:50 | Outpatient (AMB) | payer OTHER, MEDICAID, SELFPAY ==
[2023-09-10 10:51] VITALS: BP 136/80; PULSE 77; O2SAT 99; BMI 33.1
--- NOTE | 2023-09-10 10:51 | A.OFFPC_ITS ---
Vital Signs 09/10/23 10:51 Height 5 ft 1 in Weight 175 lb BMI 33.1 BP 136/80 Blood Pressure Location Lt brachial Position Sitting Pulse 77 Pulse Source Pulse Oximeter Pulse Oximetry (%) 99 Oxygen Delivery Method Room Air Intake Visit Reasons: DM [employer] Required: No Allergies cantaloupe Allergy (Unknown, Verified 09/10/23 10:54) allergy cucumber Allergy (Unknown, Verified 09/10/23 10:54) allergy watermelon Allergy (Unknown, Verified 09/10/23 10:54) allergy Medication List - Last Reconciled 09/10/23 by Melodie Berman MD aripiprazole (Abilify) 30 mg PO DAILY bisacodyl (Dulcolax (bisacodyl)) 20 mg (4 x 5 mg) PO ONCE 1 day blood sugar diagnostic ([employer] No Coding strips) As directed check the blood sugars once a day blood sugar diagnostic (Accu-Chek Guide test strips) As directed check BS QD blood-glucose meter ([employer] Autocode Blood Glucose Monitoring System) As directed bupropion HCl (Wellbutrin SR) 100 mg PO DAILY cholecalciferol (vitamin D3) 25 mcg PO DAILY docusate sodium 200 mg (2 x 100 mg) PO BEDTIME 30 days famotidine 40 mg PO BID fenofibrate 160 mg PO DAILY 90 days haloperidol 5 mg PO BEDTIME lancets (Accu-Chek Softclix Lancets) As directed lancets ([employer] Lancets) As directed check the blood sugar once a day lisinopril 2.5 mg PO DAILY metformin 500 mg PO BID 90 days methylcellulose (laxative) (Citrucel) 500 mg PO TID 90 days naltrexone 50 mg PO DAILY polyethylene glycol 3350 (Miralax) 17 grams PO DAILY polyethylene glycol 3350 (Miralax) 238 grams PO ONCE PRN 1 day Tobacco use date assessed: 09/10/23 Dental Screening Dental Screen Date: 09/10/23 HPI DM HPI Details 52-year-old obese male smoker with contr olled diabetes mellitus asthma hypercholesterolemia GERD schizophrenia coming in for follow-up. Patient was just seen couple of weeks ago and is here for follow-up. Review of the notes antonio d a CT scan of the chest 09/07/2023 for history of smoking revealing no suspicious pulmonary nodule and advised to retest in 1 year. [facility] Medical History (Updated 09/03/23 @ 10:54 by Dafne Contreras NP) Annual physical exam Colon cancer screening Impacted cerumen of both ears Asthma Tobacco abuse Hypercholesterolemia GERD (gastroesophageal reflux disease) Obesity (BMI 30-39.9) Schizophrenia Surgical History History of esophagogastroduodenoscopy (EGD) Hx of colonoscopy History of nasal surgery Family History Father Medical history unknown Mother CVD (cardiovascular disease) Brother No problems noted. Sister No problems noted. Social History (Updated 09/03/23 @ 10:55 by Dafne Contreras NP) Household Members Other:: lives alone Housing: Apartment Alcohol intake: never Patient Tobacco Use Status: Current everyday Tobacco user Tobacco use type: Cigarette Cigarette Packs Per Day: 1 Years Smoked: started 14 years old, 1 pack a day (08/2023) e-Cigarette/Vaping Use: Never Used Second Hand Smoke Exposure: Yes service: No Current occupational status: disabled Cognitive needs: No Hearing needs: No Vision needs: No Questionnaire Thrive Questionnaire Date Thrive assessed: 08/25/23 AUDIT C Alcohol Use Questionnaire (AUDIT-C) 1. How often do you have a drink containing alcohol?: Never 2. How many drinks containing alcohol do you have on a typical day when you are drinking?: 1 or 2 3. How often do you have six or more drinks on one occasion?: Never Total Score: 0 FARIDEH-7 AMB Questionnaire FARIDEH-7 Date FARIDEH - 7 assessed: 08/25/23 Source: Developed by Drs. Caesar Barrera, Kajal Zapata, Ian Figueroa and colleagues, with an educational ioana from [employer]. Physical exam (Primary Care) Vital Signs: Last Vital Signs Pulse 77 09/10/23 10:51 BP 136/80 09/10/23 10:51 Pulse Ox 99 09/10/23 10:51 Oxygen Delivery Method Room Air 09/10/23 10:51 BMI result Body Mass Index 33.1 Tobacco/Smoking Status: Tobacco use Status Tobacco use date assessed 09/10/23 09/10/23 10:57 Patient Tobacco Use Status Current everyday Tobacco 09/10/23 10:57 Tobacco use type Cigarette 09/10/23 10:57 e-Cigarette/Vaping Use Never Used 09/10/23 10:57 Thrive Assessment: Date of Thrive Assessment Date Thrive assessed 08/25/23 09/10/23 10:57 Const General: alert; No acute distress Eyes Conjunctivae: conjunctivae normal Resp Auscultation: clear to auscultation bilaterally Cardio Rate: regular rate Rhythm: regular rhythm GI Inspection: Yes normal to inspection Extrem General: Yes normal to inspection and No edema Assessment and Plan Assessment & Plan (1) Tobacco abuse: Code(s): Z72.0 - Tobacco use Plan: Lung cancer screening program CT scan done August 2023 (2) Type 2 diabetes mellitus with hyperglycemia: Comment: Eyesight and surgeryb [facility], Code(s): E11.65 - Type 2 diabetes mellitus with hyperglycemia Plan: Decrease the amount of carbohydrate intake, pasta, bread, rice and potatoes are all sugar and that is aside from all the sweet stuff, remember that fruits are good but they are Sweet also. Hemoglobin A1c goal of less than 6.5. Patient on metformin 500 mg twice a day. (3) Obesity (BMI 30-39.9): Code(s): E66.9 - Obesity, unspecified Plan: Diet and exercise (4) GERD (gastroesophageal reflux disease): Comment: Reflux precautions continue famotidine Code(s): K21.9 - Gastro-esophageal reflux disease without esophagitis Plan: Avoid the foods that causes that usually spicy foods, tomato products, juices, coffee, soda and foods that your sensitive to. After eating do not lie down, allow 3-4 hours before in lie down. And keep the head of bed above 30 degrees to avoid the acid from going up. (5) Hypercholesterolemia: Code(s): E78.00 - Pure hypercholesterolemia, unspecified Plan: Avoid fried foods, chicken skin, eggs, butter margarine, pastries and meat. Be it pork or beef they have a lot of cholesterol LDL goal of less than 100 and triglyceride of less than 150 patient had blood work done August 2022 at goal. Reminded about the blood work Coding Level of Care Code Est Pt Level 4 (10592) Diagnoses Tobacco abuse Z72.0 Type 2 diabetes mellitus with hyperglycemia E11.65 Obesity (BMI 30-39.9) E66.9 GERD (gastroesophageal reflux disease) K21.9 Hypercholesterolemia E78.00
== END 2023-09-10 11:34 | disposition home or self-care (01) ==
PROVIDERS: PCP Internal Medicine; Visit Provider Internal Medicine
DX: E11.65 Type 2 diabetes mellitus with hyperglycemia (principal); E66.9 Obesity, unspecified; Z68.33 Body mass index [BMI] 33.0-33.9, adult; K21.9 Gastro-esophageal reflux disease without esophagitis; E78.00 Pure hypercholesterolemia, unspecified; Z72.0 Tobacco use
CPT/HCPCS: 99214

== ENCOUNTER 2023-09-17 09:33 | Outpatient (REF) | payer OTHER, SELFPAY ==
[2023-09-17 10:01] LABS: MANUAL DIFF FLAG NO
[2023-09-17 10:49] LABS: Basophils Absolute Auto 0.1 X10*3/uL (0.0-0.2); Basophils Percent Auto 0.7 % (0-2); Eosinophils Absolute Auto 0.5 X10*3/uL (0.0-0.4); Eosinophils Percent Auto 7.2 % (0-4); Hematocrit 46.8 % (42.0-52.0); Hemoglobin 15.9 g/dl (14.0-18.0); Imm Gran Abs Auto 0.01 X10*3/uL (0.00-0.03); Imm Gran Pct Auto 0.1 % (0.0-0.4); Lymphocytes Absolute Auto 2.7 X10*3/uL (1.2-4.9); Lymphocytes Percent Auto 38.4 % (20-40); Mean Corpuscular Hemoglobin 32.3 pg (27.0-33.0); Mean Corpuscular Volume 94.9 fL (80.0-98.0); Mean Platelet Volume 11.2 fL (9.4-12.4); Monocytes Absolute Auto 0.5 X10*3/uL (0.1-1.2); Monocytes Percent Auto 6.6 % (2-11); Neutrophils Absolute Auto 3.3 x10*3/uL (2.0-8.3); Platelet Count 183 X10*3/uL (160-400); Red Blood Count 4.93 X10*6/uL (4.60-5.80); Red Cell Distribution Width 13.1 % (11.0-16.0); White Blood Count 7.1 X10*3/uL (4.8-10.8)
[2023-09-17 10:55] LABS: Estimated Average Glucose 105 mg/dL; Hemoglobin A1c % 5.3 % (<6.0)
[2023-09-17 11:20] LABS: Alanine Aminotransferase 22 U/L (0-40); Albumin Level 4.5 g/dL (3.5-5.0); Alkaline Phosphatase 38 U/L (39-117); Anion Gap 12 (12-20); Aspartate Amino Transferase 20 U/L (5-37); Bilirubin Total 0.5 mg/dL (0.0-1.0); Blood Urea Nitrogen 11 mg/dL (9-16); Calcium 9.7 mg/dL (8.4-10.2); Carbon Dioxide 28 mmol/L (22-29); Chloride 103 mmol/L (96-108); Cholesterol 127 mg/dL (<200); Estimated Glomerular Filt Rate > 60; Glucose Random 96 mg/dL (60-115); HDL Cholesterol 33 mg/dL (>40); LDL Cholesterol Calculated 60 mg/dL (<100); Potassium 4.3 mmol/L (3.3-5.1); Sodium 139 mmol/L (135-145); Total Protein 7.1 g/dL (6.5-8.0); Triglycerides 171 mg/dL (<150)
[2023-09-17 11:42] LABS: Free T4 (Free Thyroxine) 0.81 ng/dL (0.71-1.85); Thyroid Stimulating Hormone 0.99 uIU/mL (0.32-4.0)
[2023-09-17 11:47] LABS: Folate 12.1 ng/mL (> or = 4.0); Prostate Specific Antigen Scr 0.62 ng/mL (<0.05-4.0); Vitamin B12 1787 pg/mL (200-900)
[2023-09-17 12:08] LABS: Creatinine Urine 53.31 mg/dL; Microalbum/Creatinine Ratio Ur 9.3 ug/mg cr (<30)
== END 2023-09-17 09:34 | disposition home or self-care (01) ==
LOC: HO.LAB 09:33
PROVIDERS: PCP Internal Medicine; Visit Provider Internal Medicine
DX: Z12.5 Encounter for screening for malignant neoplasm of prostate (principal); E11.65 Type 2 diabetes mellitus with hyperglycemia; E78.00 Pure hypercholesterolemia, unspecified
CPT/HCPCS: 36415; 80053; 80061; 82043; 82570; 82607; 82746; 83036; 84153; 84439; 84443; 85025

== ENCOUNTER 2023-12-01 11:11 | Day surgery (SDC) | payer MEDICARE, MEDICAID, SELFPAY ==
--- NOTE | 2023-11-30 09:17 | HO.ANESPROP2 ---
Documented by User: Ethel Carter NP 11/30/23 09:17 HPI - Anesthesia Eval Consult details Narrative: 52yo M for Colonoscopy PMFSH Active Problems Active Problems: All Active Problems Nicotine dependence, cigarettes, uncomplicated (Acute) Annual physical exam (Acute) Encounter for subsequent annual wellness visit (AWV) in Medicare patient (Acute) Chronic constipation (Acute) Hemorrhoids (Acute) Diverticulosis (Acute) Gastritis (Acute) Tubular adenoma (Acute) Hyperplastic colon polyp (Acute) Type 2 diabetes mellitus with hyperglycemia (Acute) Medicare annual wellness visit, initial (Acute) Hypercalcemia (Acute) Asthma (Acute) Tobacco abuse (Acute) Hypercholesterolemia (Acute) GERD (gastroesophageal reflux disease) (Acute) Obesity (BMI 30-39.9) (Acute) Schizophrenia (Acute) Past Medical History Medical History Annual physical exam Colon cancer screening Impacted cerumen of both ears Asthma Tobacco abuse Hypercholesterolemia GERD (gastroesophageal reflux disease) Obesity (BMI 30-39.9) Schizophrenia Family History Family History Father Medical history unknown Mother CVD (cardiovascular disease) Brother No problems noted. Sister No problems noted. Family history of problems with anesthesia: No Surgical History Surgical History History of esophagogastroduodenoscopy (EGD) Hx of colonoscopy History of nasal surgery History of Problems with Anesthesia: No Social History Social History Household Members Other:: lives alone Housing: Apartment Alcohol intake: never Patient Tobacco Use Status: Current everyday Tobacco user Tobacco use type: Cigarette Cigarette Packs Per Day: 1 Years Smoked: started 14 years old, 1 pack a day (08/2023) e-Cigarette/Vaping Use: Never Used Second Hand Smoke Exposure: Yes Are you DNR?: No Advance Directives: No Advance Directives Information Provided: Yes Nutrition Risks: No Nutritional Risk service: No Current occupational status: disabled Cognitive needs: No Hearing needs: No Vision needs: No Meds Allergies Allergy/AdvReac Type Severity Reaction Status Date / Time cantaloupe Allergy Unknown allergy Verified 09/10/23 10:54 cucumber Allergy Unknown allergy Verified 09/10/23 10:54 watermelon Allergy Unknown allergy Verified 09/10/23 10:54 Home Medications ?Medication ?Instructions ?Recorded ?Confirmed ?Last Taken ?Type aripiprazole 30 mg tablet (Abilify) 30 mg PO DAILY 08/14/20 09/10/23 12/01/23 History bupropion HCl 100 mg tablet,12 hr 100 mg PO DAILY 08/14/20 09/10/23 12/01/23 History sustained-release (Wellbutrin SR) haloperidol 5 mg tablet 5 mg PO BEDTIME 08/14/20 09/10/23 Unknown History naltrexone 50 mg tablet 50 mg PO DAILY 08/14/20 09/10/23 Unknown History Assessment and Plan Assessment Anesthesia Assessment: Chart Reviewed Final Anesthetic Review Family History of Problems with Anesthesia: No History of Problems with Anesthesia: No Documented by User: Viri Rene MD 12/01/23 11:57 PMFSH Past Medical History Medical History Annual physical exam Colon cancer screening Impacted cerumen of both ears Asthma Tobacco abuse Hypercholesterolemia GERD (gastroesophageal reflux disease) Obesity (BMI 30-39.9) Schizophrenia Family History Family History Father Medical history unknown Mother CVD (cardiovascular disease) Brother No problems noted. Sister No problems noted. Surgical History Surgical History History of esophagogastroduodenoscopy (EGD) Hx of colonoscopy History of nasal surgery Social History Social History Household Members Other:: lives alone Housing: Apartment Alcohol intake: never Patient Tobacco Use Status: Current everyday Tobacco user Tobacco use type: Cigarette Cigarette Packs Per Day: 1 Years Smoked: started 14 years old, 1 pack a day (08/2023) e-Cigarette/Vaping Use: Never Used Second Hand Smoke Exposure: Yes Are you DNR?: No Advance Directives: No Advance Directives Information Provided: Yes Nutrition Risks: No Nutritional Risk service: No Current occupational status: disabled Cognitive needs: No Hearing needs: No Vision needs: No Meds Allergies Allergy/AdvReac Type Severity Reaction Status Date / Time cantaloupe Allergy Unknown allergy Verified 09/10/23 10:54 cucumber Allergy Unknown allergy Verified 09/10/23 10:54 watermelon Allergy Unknown allergy Verified 09/10/23 10:54 Home Medications ?Medication ?Instructions ?Recorded ?Confirmed ?Last Taken ?Type aripiprazole 30 mg tablet (Abilify) 30 mg PO DAILY 08/14/20 09/10/23 12/01/23 History bupropion HCl 100 mg tablet,12 hr 100 mg PO DAILY 08/14/20 09/10/23 12/01/23 History sustained-release (Wellbutrin SR) haloperidol 5 mg tablet 5 mg PO BEDTIME 08/14/20 09/10/23 Unknown History naltrexone 50 mg tablet 50 mg PO DAILY 08/14/20 09/10/23 Unknown History Exam Airway Mallampati Class: III TM Dist: >3cm Neck ROM: Full Loose/Missing/Broken Teeth: No Heart: RRR Lungs: CTA Assessment and Plan Assessment Anesthesia Assessment: Anesthesia Plan Discussed Final Anesthetic Review NPO: Yes ASA Class: II Final Preanesthetic Review: Meds/Allgs Chart Reviewed, Consent Obtained/Reviewed and Anes Risks/Benef Reviewed Patient Risk: Low Procedure Risk: Low Anesthetic Plan Anesthetic Plan: MAC: Disposition: Standard PACU
--- NOTE | 2023-12-01 09:07 | PC.NURSE ---
pt no show
[2023-12-01 11:20] VITALS: BP 132/8; PULSE 93; RESP 20; TEMP 36.1; O2SAT 96; BMI 29.3
[2023-12-01 11:33] LABS: Glucose, Whole Blood 101 mg/dL (60-115)
[2023-12-01] MEDS: Lactated Ringers 1,000 ML 100 ML IVCONT (11:50)
--- NOTE | 2023-12-01 12:47 | MHC.SHP ---
Pre-Procedural Eval Section A - 24 Hr Update-Section A only Date of Service: 12/01/23 Section B - Complete if H&P > 30 days Chief Complaint: Benign neoplasm, unspecified site Relevant Family History (Specify if Yes): No Relevant Social History: None Present Medications: see Short Stay Collaborative assessment Medical History: Significant History (Impacted cerumen of both ears Asthma Tobacco abuse Hypercholesterolemia GERD (gastroesophageal reflux disease) Obesity (BMI 30-39.9) Schizophrenia) History of Previous Operations: Relevant previous surgery/procedure and date(s) (History of esophagogastroduodenoscopy (EGD) Hx of colonoscopy History of nasal surgery) Allergies: Allergies Allergy/AdvReac Type Severity Reaction Status Date / Time cantaloupe Allergy Unknown allergy Verified 09/10/23 10:54 cucumber Allergy Unknown allergy Verified 09/10/23 10:54 watermelon Allergy Unknown allergy Verified 09/10/23 10:54 Review of Systems Sugical H&P ROS: Negative: Constitution, Cardiovascular, Respiratory, Neurological, Psychiatric, Hem-Onc, Allergic/Immunologic, Gastrointestinal, Genitourinary, Musculoskeletal, Integumentary, Endocrine and Eyes/Ears/Nose/Throat Exam Surgical H&P Exam: Normal: HEENT, Normal: Heart, Normal: Lungs, Normal: Extremities, Normal: Abdomen, Normal: Skin and Normal: Neurological Plan Diagnosis/Plan: Unchanged I have reviewed the history and physical and performed a pertinent physical examination on my patient. No changes have occurred unless specified. Time Spent With Patient Time: Total time managing care of this patient today ____ minutes.
--- NOTE | 2023-12-01 12:49 | P.OP_ITS ---
Operative Note Operative Note Date of Service: 12/01/23 Narrative: Operative Information Procedure Description: Colonoscopy Indication: hx of colon polyps Anesthesia: MAC COLONOSCOPY Instrument: Olympus variable stiffness pediatric scope 190L Colonoscopy Monitoring: Vital signs and clinical assessment, continuous EKG monitoring, Pulse oximetry, Carbon Dioxide monitoring and blood pressure monitoring were done throughout the procedure. Colon withdrawal time was 13 minutes. Procedure: The patient was placed in the left lateral decubitis position and pre-procedure medications were administered. After a digital rectal examination of the ano-rectum, the video colonoscope was inserted into the rectum and advanced through the colon to the cecum/TI. The colonoscope was slowly withdrawn in a retrograde panoramic fashion and the colon mucosa was carefully examined including a retroflexed view of the rectum. Findings and interventions are described below. Procedure Difficulty: easy Findings: Terminal Ileum-normal Cecum:normal Ascending Colon: normal Transverse Colon - 10-12 mm sessile polyp removed with cold snare Descending Colon:normal Sigmoid Colon: moderate diverticulosis, x2 sessile polyps 6-8 mm removed with cold forceps Rectum: Retroflexion with small internal hemorrhoids seen, grade I Anorectum - normal Intervention: cold snare and cold forceps Colon preparation: [place] Bowel Preparation Scale Right colon; 2 Transverse colon: 2 Left colon; 2 (0 = Unprepared colon segment with mucosa not seen due to solid stool that cannot be cleared. 1 = Portion of mucosa of the colon segment seen, but other areas of the colon segment not well seen due to staining, residual stool and/or opaque liquid. 2 = Minor amount of residual staining, small fragments of stool and/or opaque liquid, but mucosa of colon segment seen well. 3 = Entire mucosa of colon segment seen well with no residual staining, small fragments of stool or opaque liquid) Impression and Post Procedure Diagnosis: diverticulosis colon polyps internal hemorrhoids Plan: High fiber diet leaflet Avoid straining at stool, epsom salts and sitz bath, anusol supps or cream Repeat Colonoscopy in 3-5 years due to polyps or earlier if clinically indicated Above findings were reviewed with the patient and relevant handouts were provided if indicated.
[2023-12-01 13:30] VITALS: BP 118/72; PULSE 74; RESP 18; TEMP 36.5; O2SAT 98
[2023-12-01 13:45] VITALS: BP 114/73; PULSE 80; RESP 18; TEMP 36.6; O2SAT 97
== END 2023-12-01 14:38 | disposition home or self-care (01) ==
PROVIDERS: PCP Internal Medicine; Visit Provider Internal Medicine Gastroenterology
PROC: 0DJD8ZZ Inspection of Lower Intestinal Tract, Via Natural or Artificial Opening Endoscopic (ICD-10-PCS; CPT 45378; principal; 2023-12-01 11:00)
DX: Z12.11 Encounter for screening for malignant neoplasm of colon (principal); Z86.010 Personal history of colon polyps; D12.5 Benign neoplasm of sigmoid colon; K63.5 Polyp of colon; K57.30 Diverticulosis of large intestine without perforation or abscess without bleeding; K64.0 First degree hemorrhoids; K21.9 Gastro-esophageal reflux disease without esophagitis; J45.909 Unspecified asthma, uncomplicated; E78.00 Pure hypercholesterolemia, unspecified; E66.9 Obesity, unspecified; Z68.31 Body mass index [BMI] 31.0-31.9, adult; F20.9 Schizophrenia, unspecified; Z79.84 Long term (current) use of oral hypoglycemic drugs; Z79.899 Other long term (current) drug therapy; F17.210 Nicotine dependence, cigarettes, uncomplicated
CPT/HCPCS: 45385; 45380; 82947; 88305; J2704

== ENCOUNTER → 2023-12-01 11:11 | Outpatient (BNV) | payer MEDICARE, MEDICAID, SELFPAY | PROVIDERS: PCP Internal Medicine; Visit Provider Internal Medicine Gastroenterology | DX: Z12.11 Encounter for screening for malignant neoplasm of colon (principal); Z86.010 Personal history of colon polyps; K63.5 Polyp of colon; D12.5 Benign neoplasm of sigmoid colon; K64.0 First degree hemorrhoids; K57.30 Diverticulosis of large intestine without perforation or abscess without bleeding | CPT/HCPCS: 45380; 45385 ==

== ENCOUNTER 2023-12-09 12:56 | Outpatient (AMB) | payer OTHER, MEDICAID, SELFPAY ==
[2023-12-09 13:08] VITALS: BP 142/90; PULSE 84; O2SAT 95; BMI 33.8
--- NOTE | 2023-12-09 13:08 | MHC.PC.OV ---
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 Patient is here for follow-up colonoscopy up-to-date November 2023 3-5 years for tubular adenoma. [facility] Medical History Annual physical exam Colon cancer screening Impacted cerumen of both ears Asthma Tobacco abuse Hypercholesterolemia GERD (gastroesophageal reflux disease) Obesity (BMI 30-39.9) Schizophrenia Surgical History (Updated 12/09/23 @ 11:58 by Magda Acosta) History of esophagogastroduodenoscopy (EGD) Hx of colonoscopy History of nasal surgery Family History Father Medical history unknown Mother CVD (cardiovascular disease) Brother No problems noted. Sister No problems noted. Social History Household Members Other:: lives alone Housing: Apartment Alcohol intake: never Patient Tobacco Use Status: Current everyday Tobacco user Tobacco use type: Cigarette Cigarette Packs Per Day: 1 Years Smoked: started 14 years old, 1 pack a day (08/2023) e-Cigarette/Vaping Use: Never Used Second Hand Smoke Exposure: Yes service: No Current occupational status: disabled Cognitive needs: No Hearing needs: No Vision needs: No Questionnaire Thrive Questionnaire Date Thrive assessed: 08/25/23 FARIDEH-7 AMB Questionnaire FARIDEH-7 Date FARIDEH - 7 assessed: 08/25/23 Source: Developed by Kajal Guan Benny, Ian Figueroa and colleagues, with an educational ioana from [employer]. Physical exam (Primary Care) Vital Signs: Last Vital Signs Pulse 84 12/09/23 13:08 BP 132/84 12/09/23 13:18 Pulse Ox 95 12/09/23 13:08 Oxygen Delivery Method Room Air 12/09/23 13:08 BMI result Body Mass Index 33.8 Tobacco/Smoking Status: Tobacco use Status Tobacco use date assessed 09/10/23 12/09/23 13:14 Patient Tobacco Use Status Current everyday Tobacco 12/09/23 13:14 Tobacco use type Cigarette 12/09/23 13:14 e-Cigarette/Vaping Use Never Used 12/09/23 13:14 Thrive Assessment: Date of Thrive Assessment Date Thrive assessed 08/25/23 12/09/23 13:14 Const General: alert; No acute distress Eyes Conjunctivae: conjunctivae normal Resp Auscultation: clear to auscultation bilaterally Cardio Rate: regular rate Rhythm: regular rhythm GI Inspection: Yes normal to inspection Extrem General: Yes normal to inspection and No edema Results AMB Hemoglobin A1c AMB Hemoglobin A1c 5.5 % Last Edit by ELSA Aponte on 12/09/23 13:19 Assessment and Plan Assessment & Plan (1) Type 2 diabetes mellitus with hyperglycemia: Comment: Eyesight and surgeryb [facility], Code(s): E11.65 - Type 2 diabetes mellitus with hyperglycemia Plan: Decrease the amount of carbohydrate intake, pasta, bread, rice and potatoes are all sugar and that is aside from all the sweet stuff, remember that fruits are good but they are Sweet also. Hemoglobin A1c goal of less than 6.5. Patient on metformin 500 mg twice a day (2) Tobacco abuse: Code(s): Z72.0 - Tobacco use Plan: Patient is strongly advised to stop smoking (3) Hypercholesterolemia: Code(s): E78.00 - Pure hypercholesterolemia, unspecified Plan: Avoid fried foods, chicken skin, eggs, butter margarine, pastries and meat. Be it pork or beef they have a lot of cholesterol LDL goal of less than 100 and triglyceride of less than 150. September 2022 last blood work presently on fenofibrate (4) GERD (gastroesophageal reflux disease): Comment: Reflux precautions continue famotidine Code(s): K21.9 - Gastro-esophageal reflux disease without esophagitis Plan: Avoid the foods that causes that usually spicy foods, tomato products, juices, coffee, soda and foods that your sensitive to. After eating do not lie down, allow 3-4 hours before in lie down. And keep the head of bed above 30 degrees to avoid the acid from going up. (5) Obesity (BMI 30-39.9): Code(s): E66.9 - Obesity, unspecified Plan: Diet and exercise Orders: Orders AMB Hemoglobin A1c Today E11.65 - Type 2 diabetes mellitus with hyperglycemia Coding Level of Care Code Est Pt Level 4 (70836) Diagnoses Type 2 diabetes mellitus with hyperglycemia E11.65 Tobacco abuse Z72.0 Hypercholesterolemia E78.00 GERD (gastroesophageal reflux disease) K21.9 Obesity (BMI 30-39.9) E66.9
[2023-12-09 13:18] VITALS: BP 132/84
== END 2023-12-09 13:38 | disposition home or self-care (01) ==
PROVIDERS: PCP Internal Medicine; Visit Provider Internal Medicine
DX: E11.65 Type 2 diabetes mellitus with hyperglycemia (principal); E66.9 Obesity, unspecified; Z68.33 Body mass index [BMI] 33.0-33.9, adult; Z72.0 Tobacco use; E78.00 Pure hypercholesterolemia, unspecified; K21.9 Gastro-esophageal reflux disease without esophagitis
CPT/HCPCS: 83036; 99214

== ENCOUNTER 2024-02-24 11:37 | Outpatient (AMB) | payer OTHER, MEDICAID, SELFPAY ==
--- NOTE | 2024-02-24 11:57 | AM.OFFVISMDC ---
Intake Vital Signs 02/24/24 11:58 Height 5 ft 1 in Weight 173 lb BMI 32.7 BP 122/70 Blood Pressure Location Lt brachial Position Sitting Pulse 90 Pulse Source Pulse Oximeter Pulse Oximetry (%) 98 Oxygen Delivery Method Room Air Intake Visit Reasons: [facility] [id number] Allergies cantaloupe Allergy (Unknown, Verified 12/09/23 13:13) allergy cucumber Allergy (Unknown, Verified 12/09/23 13:13) allergy watermelon Allergy (Unknown, Verified 12/09/23 13:13) allergy Medication List - Last Reconciled 02/24/24 by Melodie Berman MD aripiprazole (Abilify) 30 mg PO DAILY blood sugar diagnostic (Clever Machine No Coding strips) As directed check the blood sugars once a day blood sugar diagnostic (Accu-Chek Guide test strips) As directed check BS QD blood-glucose meter (Clever Machine Autocode Blood Glucose Monitoring System) As directed bupropion HCl SR (Wellbutrin SR) 100 mg PO DAILY cholecalciferol (vitamin D3) 25 mcg PO DAILY famotidine 40 mg PO BID fenofibrate 160 mg PO DAILY 90 days haloperidol 5 mg PO BEDTIME lancets (Accu-Chek Softclix Lancets) As directed lancets (Clever Machine Lancets) As directed check the blood sugar once a day lisinopril 2.5 mg PO DAILY metformin 500 mg PO BID 90 days naltrexone 50 mg PO DAILY polyethylene glycol 3350 (Miralax) 17 grams PO DAILY psyllium husk (Reguloid (psyllium husk)) 0.8 grams PO DAILY HPI [facility] [id number] HPI Details 53-year-old obese male smoker with diabetes mellitus hypercholesterolemia GERD coming in for annual well visit last seen in December 2023. Patient is up-to-date with colonoscopy 11/2023 and had tubular adenoma and it was advised repeat in 3-5 years. [facility] Medical History (Updated 02/24/24 @ 12:18 by Melodie Berman MD) Annual physical exam Colon cancer screening Impacted cerumen of both ears Asthma Tobacco abuse Hypercholesterolemia GERD (gastroesophageal reflux disease) Obesity (BMI 30-39.9) Schizophrenia Surgical History (Updated 12/09/23 @ 11:58 by Magda Acosta) History of esophagogastroduodenoscopy (EGD) Hx of colonoscopy History of nasal surgery Family History Father Medical history unknown Mother CVD (cardiovascular disease) Brother No problems noted. Sister No problems noted. Social History Household Members Other:: lives alone Housing: Apartment Alcohol intake: never Patient Tobacco Use Status: Current everyday Tobacco user Tobacco use type: Cigarette Cigarette Packs Per Day: 1 Years Smoked: started 14 years old, 1 pack a day (08/2023) e-Cigarette/Vaping Use: Never Used Second Hand Smoke Exposure: Yes service: No Current occupational status: disabled Cognitive needs: No Hearing needs: No Vision needs: No Questionnaire Medicare Wellness Checkup What is your age?: 65-69 (18-64) What gender do you identify with?: male During the past 4 weeks, how much have you been bothered by emotional problems such as feeling anxious, depressed, irritable, sad or downhearted, and blue?: not at all During the past 4 weeks, has your physical & emotional health limited your social activities with family, friends, neighbors, or groups?: not at all During the past 4 weeks, how much bodily pain have you generally had?: no pain During the past 4 weeks, was someone available to help you if you needed & wanted help?: no, not at all During the past 4 weeks, what was the hardest physical activity you could do for at least 2 minutes?: moderate Can you get to places out of walking distance without help? (For eg., can you travel alone on buses, taxis or drive your car?): Yes Can you go shopping for groceries or clothes without someone's help?: Yes Can you prepare your own meals?: Yes Can you do your housework without help?: Yes Because of any health problems, do you need the help of another person with your personal care needs such as eating, bathing, dressing or getting around the house?: No Can you handle your own money without help?: No During the past 4 weeks, how would you rate your health in general?: excellent During the past 4 weeks how have things been going for you?: very well; could hardly better Are you having difficulties driving your car?: no Do you always fasten your seat belt when you are in a car?: yes, usually During past 4 weeks, have you been bothered by the following: never: Falling or dizzy when standing up, Sexual problems?, Trouble eating well?, Teeth or denture problems?, Problems using the telephone? and Tiredness or fatigue? Have you fallen 2 or more times in the past year?: No Are you afraid of falling?: No Are you a smoker?: yes, but I'm not ready to quit During the past 4 weeks, how many drinks of wine, beer, or other alcoholic beverages did you have?: no alcohol at all Do you exercise for about 20 minutes 3 or more times a week?: yes, most of the time Have you been given information to help with the following?: yes: Keeping track of your medications? and no: Hazards in your house that might hurt you? How often do you have trouble taking medicines the way you have been told to take them?: I always take medicine as prescribed How confident are you that you can control & manage most of your health problems?: very confident What is your race?: White PHQ-9 Over the last 2 weeks, how often have you been bothered by any of the following problems? 1. Little interest or pleasure in doing things: not at all 2. Feeling down, depressed, or hopeless: not at all 3. Trouble falling or staying asleep, or sleeping too much: not at all 4. Feeling tired or having little energy: not at all 5. Poor appetite or overeating: not at all 6. Feeling bad about yourself - or that you are a failure or have let yourself or your family down: not at all 7. Trouble concentrating on things, such as reading the newspaper or watching television: not at all 8. Moving or speaking so slowly that other people could have noticed. Or the opposite - being so fidgety or restless that you have been moving around a lot more than usual: not at all 9. Thoughts that you would be better off or of hurting yourself in some way: not at all Total score: 0 Depression Screening Interpretation: Negative Depression Screening Done: Yes 37994 - PHQ-9 Billing: Yes Source: Developed by Drs. Caesar Barrera, Kajal Zapata, Ian Figueroa and colleagues, with an educational ioana from [email or web address]. Review of Systems Const Denies poor appetite and Denies weakness Eyes Denies no additional complaints ENT Reports Normal hearing present, Denies dizziness, Denies nasal congestion, Denies tinnitus and Denies sore throat Card Denies chest pain, Denies syncope, Denies rapid heart rate and Denies dyspnea Resp Denies cough and Denies dyspnea GI Denies change in stool character, Reports constipation, Denies diarrhea, Denies nausea and Denies vomiting Denies dysuria and Denies urinary frequency Neuro Reports Normal hearing present, Denies confusion, Denies dizziness, Denies syncope and Denies weakness Psych Denies confusion Physical Exam Vital Signs: Oxygen Delivery Method Room Air 02/24/24 11:58 Const General: No confusion Orientation/consciousness: No confusion HEENT Head: Yes normocephalic Ears: external ears normal and TM's normal bilaterally Face and sinus: Yes normal facial exam Mouth: moist mucous membranes Throat: Yes tonsils normal Eyes Other: mild vertical nystagmus Conjunctivae: conjunctivae normal Pupils: Equal, round and reactive pupils present and Pupil accommodation reflex normal Direct Ophthalmoscopy: normal light reflex Neck Neck: No lymphadenopathy Thyroid: Thyroid normal Chest Chest palpation & inspection: normal inspection of the chest Resp Other: sl wheezing lungs bilateral Effort & Inspection: normal respiratory effort and no audible wheezes Auscultation: clear to auscultation bilaterally, no crackles, no wheezes and lung sounds not diminished Cardio Other: pedal pulse and pin prick normal Rate: regular rate Rhythm: regular rhythm Peripheral pulses: radial pulses present and dorsalis pedis present GI Other: colon test 11/2023 Palpation (GI): no masses Auscultation: normal bowel sounds and normoactive bowel sounds Rectal Exam - Male: Yes deferred Male General Exam: Yes normal external exam Skin General skin exam: no rashes or lesions noted Rashes: no rashes Neuro General: No confusion Cranial nerves: Yes Equal, round and reactive pupils present and Yes Normal hearing present Cognition (Neuro): normal cognition Gait exam (Neuro): Normal gait present Motor exam (neuro): 5/5 motor strength present throughout Deep tendon reflexes (DTR's): Right brachioradialis reflex intensity grade: 2+, Left brachioradialis reflex intensity grade: 2+, Right patellar reflex intensity grade: 2+ and Left patellar reflex intensity grade: 2+ Extrem General: No edema Assessment & Plan Assessment & Plan (1) Encounter for subsequent annual wellness visit (AWV) in Medicare patient: Code(s): Z00.00 - Encounter for general adult medical examination without abnormal findings Plan: Patient is advised to eat healthy, keep well hydrated, keep active and have adequate sleep. (2) Tobacco abuse: Comment: Lung cancer screening program August 2023 Code(s): Z72.0 - Tobacco use Plan: Patient is strongly advised to stop smoking! (3) Obesity (BMI 30-39.9): Code(s): E66.9 - Obesity, unspecified Plan: Diet and exercise (4) Type 2 diabetes mellitus with hyperglycemia: Comment: Eyesight and surgery [facility], Code(s): E11.65 - Type 2 diabetes mellitus with hyperglycemia Plan: Decrease the amount of carbohydrate intake, pasta, bread, rice and potatoes are all sugar and that is aside from all the sweet stuff, remember that fruits are good but they are Sweet also. Hemoglobin A1c goal of less than 6.5. (5) Hypercholesterolemia: Code(s): E78.00 - Pure hypercholesterolemia, unspecified Plan: Avoid fried foods, chicken skin, eggs, butter margarine, pastries and meat. Be it pork or beef they have a lot of cholesterol presently on fenofibrate 160 mg once a day LDL goal of less than 100 and triglyceride of less than 150 (6) GERD (gastroesophageal reflux disease): Comment: Reflux precautions continue famotidine Code(s): K21.9 - Gastro-esophageal reflux disease without esophagitis Plan: Stop smoking! Avoid the foods that causes that usually spicy foods, tomato products, juices, coffee, soda and foods that your sensitive to. After eating do not lie down, allow 3-4 hours before in lie down. And keep the head of bed above 30 degrees to avoid the acid from going up. (7) Asthma: Code(s): J45.909 - Unspecified asthma, uncomplicated Plan: Patient is strongly advised to stop smoking! (8) Tubular adenoma: Comment: 2, adenoma 2021-inadequate, November 2023 3-5 year Code(s): D36.9 - Benign neoplasm, unspecified site Plan: Colonoscopy done in November 2023 and advised repeat in 3-5 years Quality Reporting (2019) Depression/Bipolar (159/160/161/177) PHQ-9: Total score: 0 Coding Level of Care Code Medicare Subsequent (G0439) Diagnoses Encounter for subsequent annual wellness visit (AWV) in Medicare patient Z00.00 Tobacco abuse Z72.0 Obesity (BMI 30-39.9) E66.9 Type 2 diabetes mellitus with hyperglycemia E11.65 Hypercholesterolemia E78.00 GERD (gastroesophageal reflux disease) K21.9 Asthma J45.909 Tubular adenoma D36.9
[2024-02-24 11:58] VITALS: BP 122/70; PULSE 90; O2SAT 98; BMI 32.7
== END 2024-02-24 12:21 | disposition home or self-care (01) ==
PROVIDERS: PCP Internal Medicine; Visit Provider Internal Medicine
DX: Z00.00 Encounter for general adult medical examination without abnormal findings (principal); E11.65 Type 2 diabetes mellitus with hyperglycemia; E66.9 Obesity, unspecified; Z68.32 Body mass index [BMI] 32.0-32.9, adult; Z72.0 Tobacco use; E78.00 Pure hypercholesterolemia, unspecified; K21.9 Gastro-esophageal reflux disease without esophagitis; J45.909 Unspecified asthma, uncomplicated; D36.9 Benign neoplasm, unspecified site
CPT/HCPCS: G0439

== ENCOUNTER 2024-04-26 10:26 | Outpatient (AMB) | payer MEDICARE, MEDICAID, SELFPAY ==
[2024-04-26 10:27] VITALS: BP 132/92; PULSE 76; O2SAT 95; BMI 32.9
--- NOTE | 2024-04-26 10:27 | A.OFFPC_ITS ---
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 Last seen in February 2024. 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 Sister No problems noted. Social History Household Members Other:: lives alone Housing: Apartment Alcohol intake: never Patient Tobacco Use Status: Current everyday Tobacco user Tobacco use type: Cigarette Cigarette Packs Per Day: 1 Years Smoked: started 14 years old, 1 pack a day (08/2023) Packs Per Year: 0 e-Cigarette/Vaping Use: Never Used Second Hand Smoke Exposure: Yes service: No Current occupational status: disabled Cognitive needs: No Hearing needs: No Vision needs: No Questionnaire PHQ-9 Over the last 2 weeks, how often have you been bothered by any of the following problems? 1. Little interest or pleasure in doing things: not at all 2. Feeling down, depressed, or hopeless: not at all 3. Trouble falling or staying asleep, or sleeping too much: not at all 4. Feeling tired or having little energy: not at all 5. Poor appetite or overeating: not at all 6. Feeling bad about yourself - or that you are a failure or have let yourself or your family down: not at all 7. Trouble concentrating on things, such as reading the newspaper or watching television: not at all 8. Moving or speaking so slowly that other people could have noticed. Or the opposite - being so fidgety or restless that you have been moving around a lot more than usual: not at all 9. Thoughts that you would be better off or of hurting yourself in some way: not at all Total score: 0 Depression Screening Interpretation: Negative Depression Screening Done: Yes 60099 - PHQ-9 Billing: Yes Source: Developed by Drs. Caesar Barrera, Ian East and colleagues, with an educational ioana from [employer]. Thrive Questionnaire Date Thrive assessed: 08/25/23 Are you currently unemployed and looking for a job?: No AUDIT C Alcohol Use Questionnaire (AUDIT-C) 1. How often do you have a drink containing alcohol?: Never 2. How many drinks containing alcohol do you have on a typical day when you are drinking?: 1 or 2 3. How often do you have six or more drinks on one occasion?: Never Total Score: 0 FARIDEH-7 AMB Questionnaire FARIDEH-7 Date FARIDEH - 7 assessed: 08/25/23 Source: Developed by Drs. Caesar Barrera, Ian East and colleagues, with an educational ioana from [employer]. Physical exam (Primary Care) Vital Signs: Last Vital Signs Pulse 76 04/26/24 10:27 BP 132/92 H 04/26/24 10:27 Pulse Ox 95 04/26/24 10:27 Oxygen Delivery Method Room Air 04/26/24 10:27 BMI result Body Mass Index 32.9 Tobacco/Smoking Status: Tobacco use Status Tobacco use date assessed 09/10/23 04/26/24 10:30 Patient Tobacco Use Status Current everyday Tobacco 04/26/24 10:30 Tobacco use type Cigarette 04/26/24 10:30 e-Cigarette/Vaping Use Never Used 04/26/24 10:30 PHQ-9: PHQ-9 Score PHQ-9: Total score 0 04/26/24 10:36 Depression Screening Interpretation: Negative Thrive Assessment: Date of Thrive Assessment Date Thrive assessed 08/25/23 04/26/24 10:30 Const General: alert; No acute distress Eyes Conjunctivae: conjunctivae normal Resp Auscultation: clear to auscultation bilaterally Cardio Rate: regular rate Rhythm: regular rhythm Heart sounds: Murmur heart sound present GI Inspection: Yes normal to inspection Extrem General: Yes normal to inspection and No edema Results AMB Hemoglobin A1c AMB Hemoglobin A1c 5.9 % Last Edit by Bhavana Macdonald CMA on 04/26/24 10:41 Results Reviewed Results Reviewed: Laboratory Last Values Hgb A1c (Clinic) 5.9 % (4.0-6.0) 04/26/24 10:36 Assessment and Plan Assessment & Plan (1) Tobacco abuse: Comment: Lung cancer screening program August 2023 Code(s): Z72.0 - Tobacco use Plan: Patient is strongly advised to stop smoking (2) Type 2 diabetes mellitus with hyperglycemia: Comment: Eyesight and surgery [facility], Code(s): E11.65 - Type 2 diabetes mellitus with hyperglycemia Plan: Decrease the amount of carbohydrate intake, pasta, bread, rice and potatoes are all sugar and that is aside from all the sweet stuff, remember that fruits are good but they are Sweet also. Hemoglobin A1c goal of less than 6.5. Patient on metformin 500 mg twice a day (3) Obesity (BMI 30-39.9): Code(s): E66.9 - Obesity, unspecified Plan: Diet and exercise (4) Schizophrenia: Code(s): F20.9 - Schizophrenia, unspecified Qualifiers: Schizophrenia type: disorganized schizophrenia Qualified Code(s): F20.1 - Disorganized schizophrenia Plan: Continue to follow-up with psychiatry and counseling. (5) GERD (gastroesophageal reflux disease): Comment: Reflux precautions continue famotidine Code(s): K21.9 - Gastro-esophageal reflux disease without esophagitis Plan: Avoid the foods that causes that usually spicy foods, tomato products, juices, coffee, soda and foods that your sensitive to. After eating do not lie down, allow 3-4 hours before in lie down. And keep the head of bed above 30 degrees to avoid the acid from going up. (6) Hypercholesterolemia: Code(s): E78.00 - Pure hypercholesterolemia, unspecified Plan: Avoid fried foods, chicken skin, eggs, butter margarine, pastries and meat. Be it pork or beef they have a lot of cholesterol 09/29/2023 last blood work LDL goal of less than 100 and triglyceride of less than 150 on fenofibrate 160 mg once a day Orders: Orders AMB Hemoglobin A1c Today E11.65 - Type 2 diabetes mellitus with hyperglycemia Free T4 (Free Thyroxine) 6 Months E11.65 - Type 2 diabetes mellitus with hyperglycemia Thyroid Stimulating Hormone 6 Months E11.65 - Type 2 diabetes mellitus with hyperglycemia Prostate Specific Antigen Scr 6 Months E11.65 - Type 2 diabetes mellitus with hyperglycemia Complete Blood Count Auto Diff 6 Months E11.65 - Type 2 diabetes mellitus with hyperglycemia Comprehensive Met. Panel 6 Months E11.65 - Type 2 diabetes mellitus with hyperglycemia Creatinine Urine 6 Months E11.65 - Type 2 diabetes mellitus with hyperglycemia Microalbumin, Random (w Creat) 6 Months E11.65 - Type 2 diabetes mellitus with hyperglycemia Lipid Panel 6 Months E11.65 - Type 2 diabetes mellitus with hyperglycemia, E78.00 - Pure hypercholesterolemia, unspecified Vitamin B12 and Folate 6 Months E11.65 - Type 2 diabetes mellitus with hyperglycemia Hemoglobin A1c 6 Months E11.65 - Type 2 diabetes mellitus with hyperglycemia Coding Level of Care Code Est Pt Level 4 (09293) Diagnoses Tobacco abuse Z72.0 Type 2 diabetes mellitus with hyperglycemia E11.65 Obesity (BMI 30-39.9) E66.9 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
[2024-04-26 11:05] VITALS: BP 130/80
== END 2024-04-26 11:12 | disposition home or self-care (01) ==
PROVIDERS: PCP Internal Medicine; Visit Provider Internal Medicine
DX: Z72.0 Tobacco use (principal); E11.65 Type 2 diabetes mellitus with hyperglycemia; E66.9 Obesity, unspecified; F20.1 Disorganized schizophrenia; K21.9 Gastro-esophageal reflux disease without esophagitis; E78.00 Pure hypercholesterolemia, unspecified

== ENCOUNTER → 2024-04-26 10:26 | Outpatient (BNVA) | payer MEDICARE, MEDICAID, SELFPAY | PROVIDERS: PCP Internal Medicine; Visit Provider Internal Medicine | DX: E11.65 Type 2 diabetes mellitus with hyperglycemia (principal); E66.9 Obesity, unspecified; Z68.32 Body mass index [BMI] 32.0-32.9, adult; F20.1 Disorganized schizophrenia; K21.9 Gastro-esophageal reflux disease without esophagitis; E78.00 Pure hypercholesterolemia, unspecified | CPT/HCPCS: 83036; 99212 ==

== ENCOUNTER 2024-05-25 10:48 | Outpatient (AMB) | payer MEDICARE, MEDICAID, SELFPAY ==
--- NOTE | 2024-05-25 10:50 | MHC.PC.OV ---
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: No Allergies cantaloupe Allergy (Unknown, Verified 05/25/24 10:51) allergy cucumber Allergy (Unknown, Verified 05/25/24 10:51) allergy watermelon Allergy (Unknown, Verified 05/25/24 10:51) allergy Medication List - Last Reconciled 05/25/24 by Ale Green PA-C aripiprazole (Abilify) 30 mg PO DAILY blood sugar diagnostic ([employer] No Coding strips) As directed check the blood sugars once a day blood sugar diagnostic (Accu-Chek Guide test strips) As directed check BS QD blood-glucose meter ([employer] Autocode Blood Glucose Monitoring System) As directed bupropion HCl SR (Wellbutrin SR) 100 mg PO DAILY cholecalciferol (vitamin D3) 25 mcg PO DAILY docusate sodium 100 mg PO BID famotidine 40 mg PO BID fenofibrate 160 mg PO DAILY 90 days haloperidol 5 mg PO BEDTIME lancets (Accu-Chek Softclix Lancets) As directed lancets ([employer] Lancets) As directed check the blood sugar once a day lisinopril 2.5 mg PO DAILY metformin 500 mg PO BID 90 days naltrexone 50 mg PO DAILY polyethylene glycol 3350 (Miralax) 17 grams PO DAILY psyllium husk (Reguloid (psyllium husk)) 0.8 grams PO DAILY Tobacco use date assessed: 09/10/23 Dental Screening Dental Screen Date: 09/10/23 HPI 3 Month F/U HPI Details 53-year-old male with past medical history of diabetes mellitus, hypercholesterolemia, GERD, asthma coming in for follow up last seen by Dr. Berman April 2024. A1c at last visit was 5.9%. Patient has no acute concerns today [facility] Medical History (Updated 05/25/24 @ 11:15 by Ale Green PA-C) Annual physical exam Colon cancer screening Impacted cerumen of both ears Asthma Tobacco abuse Hypercholesterolemia GERD (gastroesophageal reflux disease) Obesity (BMI 30-39.9) Schizophrenia Surgical History (Updated 12/09/23 @ 11:58 by Magda Acosta) History of esophagogastroduodenoscopy (EGD) Hx of colonoscopy History of nasal surgery Family History Father Medical history unknown Mother CVD (cardiovascular disease) Brother No problems noted. Sister No problems noted. Social History Household Members Other:: lives alone Housing: Apartment Alcohol intake: never Patient Tobacco Use Status: Current everyday Tobacco user Tobacco use type: Cigarette Cigarette Packs Per Day: 1 Years Smoked: started 14 years old, 1 pack a day (08/2023) e-Cigarette/Vaping Use: Never Used Second Hand Smoke Exposure: Yes service: No Current occupational status: disabled Cognitive needs: No Hearing needs: No Vision needs: No Questionnaire Thrive Questionnaire Date Thrive assessed: 08/25/23 Are you currently unemployed and looking for a job?: No AUDIT C Alcohol Use Questionnaire (AUDIT-C) 1. How often do you have a drink containing alcohol?: Never 2. How many drinks containing alcohol do you have on a typical day when you are drinking?: 1 or 2 3. How often do you have six or more drinks on one occasion?: Never Total Score: 0 FARIDEH-7 AMB Questionnaire FARIDEH-7 Date FARIDEH - 7 assessed: 08/25/23 Source: Developed by Drs. Caesar Barrera, Kajal Zapata, Ian iFgueroa and colleagues, with an educational ioana from [employer]. Review of Systems Const Denies body aches and Denies fever(s) Eyes Reports no additional complaints ENT Reports no additional complaints Card Denies chest pain, Denies syncope, Denies leg edema, Denies lightheadedness and Denies dyspnea Resp Denies dyspnea GI Denies abdominal pain, Denies nausea and Denies vomiting Reports no additional complaints Musc Reports no additional complaints Neuro Reports no additional complaints and Denies syncope Physical exam (Primary Care) Vital Signs: Last Vital Signs Pulse 79 05/25/24 10:51 BP 132/80 05/25/24 10:51 Pulse Ox 96 05/25/24 10:51 Oxygen Delivery Method Room Air 05/25/24 10:51 BMI result Body Mass Index 33.4 Tobacco/Smoking Status: Tobacco use Status Tobacco use date assessed 09/10/23 05/25/24 10:51 Patient Tobacco Use Status Current everyday Tobacco 05/25/24 10:51 Tobacco use type Cigarette 05/25/24 10:51 e-Cigarette/Vaping Use Never Used 05/25/24 10:51 Are you ready to quit: No Tobacco cessation counseling provided: Yes Items discussed: Nicotine replacement CPT code: Less than 3 minutes Thrive Assessment: Date of Thrive Assessment Date Thrive assessed 08/25/23 05/25/24 10:51 Const General: cooperative, healthy appearing, comfortable and no acute distress Orientation/consciousness: patient oriented x3 HENMT Head: Yes normocephalic Ears: hearing grossly normal bilaterally General nose exam: Normal external nose present Eyes General: appearance normal, both eyes and all related structures Conjunctivae: conjunctivae normal Neck Neck: Yes full ROM and Yes no lymphadenopathy Resp Effort & Inspection: normal respiratory effort Auscultation: clear to auscultation bilaterally, no crackles, no rales, no rhonchi and no wheezes Cardio Rate: regular rate Rhythm: regular rhythm Skin General skin exam: no rashes or lesions noted Neuro General: patient oriented x3 Gait exam (Neuro): Normal gait present Extrem General: Yes normal to inspection, Yes full ROM and No edema Psych Affect: normal affect Attitude: cooperative Insight: Good insight present (Psych) Judgement: Good judgement present (Psych) Office Procedures Flu Questionnaire Does the patient have a severe egg allergy?: No Does the patient have severe life threatening allergies?: No Does the patient have a fever or illness today?: No Has the patient ever had Guillain-Divernon Syndrome?: No Has the patient ever had any past reaction to a flu shot?: No Immunizations Fluarix Triv [id number] (PF) 45 mcg (15 mcg x 3)/0.5 mL IM syringe Performing Provider: Ale Green PA-C [facility] Administered by: CELESTINE Amador on 05/25/24 11:17 Dose Route Admin Location Dispensed Lot Number Expiration Date [facility] Publicity Person 0.5 mL IM Left Deltoid 0.5 mL [id number] 02/06/25 [id number] [employer] VIS Given Date VIS Provided VIS Publication Date 05/25/24 Single Vaccine 21 Eligibility Eligibility Date Funding Source Not [facility] Eligible 05/25/24 Private Coding Level of Care Code Est Pt Level 3 (30864) Diagnoses Nicotine dependence, cigarettes, uncomplicated F17.210 Type 2 diabetes mellitus with hyperglycemia E11.65 Asthma J45.909 Hypercholesterolemia E78.00 GERD (gastroesophageal reflux disease) K21.9 Obesity (BMI 30-39.9) E66.9 Assessment & Plan Assessment & Plan (1) Nicotine dependence, cigarettes, uncomplicated: Code(s): F17.210 - Nicotine dependence, cigarettes, uncomplicated Category: Medical Plan: Smoking cigarettes and the use of tobacco can be harmful. We discussed the importance of stopping and options to aid in smoking cessation. Patient is not interested in quitting at this time. (2) Type 2 diabetes mellitus with hyperglycemia: Comment: Eyesight and surgery [facility], Code(s): E11.65 - Type 2 diabetes mellitus with hyperglycemia Category: Medical Plan: Decrease the amount of carbohydrates such as pasta, bread, rice, and potatoes and limit the amount of sweets. Although fruits are generally healthy they should be eaten in moderation as they are still high in sugar. Hemoglobin A1c goal of less than 6.5%. A1c at goal on last exam follow up in 6 months. (3) Asthma: Code(s): J45.909 - Unspecified asthma, uncomplicated Category: Medical Plan: Asthma currently controlled on present medications. Continue on current medication regimen. Avoid triggers such as allergies. Strongly advised to stop smoking (4) Hypercholesterolemia: Code(s): E78.00 - Pure hypercholesterolemia, unspecified Category: Medical Plan: Avoid foods that are high in cholesterol such as red meat, fried foods, eggs and baked goods. Triglyceride goal of less than 150 and LDL goal of less than 100. Triglycerides mildly elevated on last blood work we will repeat in 6 months continue on fenofibrate. (5) GERD (gastroesophageal reflux disease): Comment: Reflux precautions continue famotidine Code(s): K21.9 - Gastro-esophageal reflux disease without esophagitis Category: Medical Plan: Avoid trigger foods such as citrus, tomato products, soda, caffeine, spicy foods and other foods that may be irritating to your stomach. Avoid laying flat 3-4 hours after eating and elevate the head of the bed 30 degrees to prevent acid from moving into the esophagus. Continue on present medication. (6) Obesity (BMI 30-39.9): Code(s): E66.9 - Obesity, unspecified Category: Medical Plan: Healthy diet and regular exercise is encouraged. Plan This note was constructed using voice recognition software. While every effort has been made to ensure accuracy and sdv pilot/navigator/dds operator, still areas may have been included sometimes these areas may affect the content or meeting of the given symptoms. Total time spent caring for the patient today was 30 minutes. This includes time spent before the visit reviewing the chart, time spent during the visit, and time spent after the visit and documentation. Orders: Orders Influenza [id number] Immunization Today Z23 - Encounter for immunization
[2024-05-25 10:51] VITALS: BP 132/80; PULSE 79; O2SAT 96; BMI 33.4
== END 2024-05-25 11:30 | disposition home or self-care (01) ==
PROVIDERS: PCP Internal Medicine
DX: E11.65 Type 2 diabetes mellitus with hyperglycemia (principal); F17.210 Nicotine dependence, cigarettes, uncomplicated; Z68.33 Body mass index [BMI] 33.0-33.9, adult; E66.9 Obesity, unspecified; J45.909 Unspecified asthma, uncomplicated; E78.00 Pure hypercholesterolemia, unspecified; K21.9 Gastro-esophageal reflux disease without esophagitis

== ENCOUNTER → 2024-05-25 10:48 | Outpatient (BNVA) | payer MEDICARE, MEDICAID, SELFPAY | PROVIDERS: PCP Internal Medicine | DX: Z23 Encounter for immunization (principal); E11.65 Type 2 diabetes mellitus with hyperglycemia; J45.909 Unspecified asthma, uncomplicated; E78.00 Pure hypercholesterolemia, unspecified; K21.9 Gastro-esophageal reflux disease without esophagitis; E66.9 Obesity, unspecified; F17.210 Nicotine dependence, cigarettes, uncomplicated; Z71.6 Tobacco abuse counseling | CPT/HCPCS: 90471; 90656; 99212 ==

== ENCOUNTER 2024-09-01 12:36 | Outpatient (AMB) | payer MEDICARE, MEDICAID, SELFPAY ==
[2024-09-01 12:38] VITALS: BP 118/68; PULSE 85; O2SAT 97; BMI 33.3
--- NOTE | 2024-09-01 12:38 | MHC.PC.OV ---
Vital Signs 09/01/24 12:38 Height 5 ft 1 in Weight 176 lb BMI 33.3 BP 118/68 Blood Pressure Location Lt brachial Position Sitting Pulse 85 Pulse Source Pulse Oximeter Pulse Oximetry (%) 97 Oxygen Delivery Method Room Air Intake Visit Reasons: annual exam Allergies cantaloupe Allergy (Unknown, Verified 09/01/24 12:39) allergy cucumber Allergy (Unknown, Verified 09/01/24 12:39) allergy watermelon Allergy (Unknown, Verified 09/01/24 12:39) allergy Medication List - Last Reconciled 09/01/24 by Melodie Berman MD aripiprazole (Abilify) 30 mg PO DAILY blood sugar diagnostic ([employer] No Coding strips) As directed check the blood sugars once a day blood sugar diagnostic (Accu-Chek Guide test strips) As directed check BS QD blood-glucose meter ([employer] Autocode Blood Glucose Monitoring System) As directed bupropion HCl SR (Wellbutrin SR) 100 mg PO DAILY cholecalciferol (vitamin D3) 25 mcg PO DAILY famotidine 40 mg PO BID fenofibrate 160 mg PO DAILY 90 days haloperidol 5 mg PO BEDTIME lancets ([employer] Lancets) As directed check the blood sugar once a day lancets (Accu-Chek Softclix Lancets) As directed once per day lisinopril 2.5 mg PO DAILY metformin 500 mg PO BID 90 days naltrexone 50 mg PO DAILY psyllium husk (Reguloid (psyllium husk)) 0.8 grams PO DAILY Tobacco use date assessed: 09/01/24 Dental Screening Dental Screen Date: 09/01/24 Did you have a dental visit in the last 12 months?: Yes Did you have a dental problem in the last 6 months where you did not have access to dental care?: No Was dental information given to patient?: Patient has dentist HPI annual exam HPI Details The patient is a 53-year-old male presenting with a primary visit for his annual physical examination. He has a history of tobacco use disorder, smoking approximately one pack daily. The patient has been counseled about cessation but remains unsure about stopping. He has a history of Type 2 Diabetes Mellitus, currently managed on metformin, with recent blood glucose under control. He also has hyperlipidemia, treated with fenofibrate. The patient reports no new diagnoses or surgical interventions since the last visit and denies alcohol consumption. He does not have medication allergies and confirms adherence to prescribed Abilify and bupropion. There are no recorded gastrointestinal issues, but he questions the current use of famotidine. The family history is significant for maternal heart issues, although no first-degree relatives have experienced a heart attack. He denies any family history of cancer. Recent screenings have not raised new concerns. - Tobacco cessation was discussed and encouraged. - Flu vaccination is up to date. - Shingles and tetanus vaccines are current. - Pneumonia vaccination is noted. - Blood glucose levels are well-controlled with metformin. - Lipid profile correlates with resistance to discontinued smoking. - Tobacco use: Smokes one pack per day. - Denies alcohol consumption. - Recent weight status is similar to previous measurements. - No details on employment, living situation, or exercise regime provided. - Respiratory: Denies shortness of breath. - Cardiovascular: Denies chest pain. - Gastrointestinal: Denies difficulty swallowing, nausea, vomiting, bowel movement issues. - Genitourinary: Denies dysuria; reports nocturia twice nightly. - Neurological: Denies dizziness, syncope. - Otolaryngological: Denies hearing issues. [facility] Medical History (Updated 09/01/24 @ 12:51 by Melodie Berman MD) Hyperplastic colon polyp Nicotine dependence, cigarettes, uncomplicated Colon cancer screening Impacted cerumen of both ears Asthma Hypercholesterolemia GERD (gastroesophageal reflux disease) Obesity (BMI 30-39.9) Schizophrenia Surgical History (Updated 12/09/23 @ 11:58 by Magda Acosta) History of esophagogastroduodenoscopy (EGD) Hx of colonoscopy History of nasal surgery Family History (Updated 09/01/24 @ 12:40 by Idania Bolanos [facility]) Father Medical history unknown Mother CVD (cardiovascular disease) Brother No problems noted. Sister No problems noted. Social History Household Members Other:: lives alone Housing: Apartment Alcohol intake: never Patient Tobacco Use Status: Current everyday Tobacco user Tobacco use type: Cigarette Cigarette Packs Per Day: 1 Years Smoked: started 14 years old, 1 pack a day (08/2023) Packs Per Year: 0 e-Cigarette/Vaping Use: Never Used Second Hand Smoke Exposure: Yes service: No Current occupational status: disabled Cognitive needs: No Hearing needs: No Vision needs: Yes Questionnaire PHQ-9 Over the last 2 weeks, how often have you been bothered by any of the following problems? 1. Little interest or pleasure in doing things: not at all 2. Feeling down, depressed, or hopeless: not at all 3. Trouble falling or staying asleep, or sleeping too much: not at all 4. Feeling tired or having little energy: not at all 5. Poor appetite or overeating: not at all 6. Feeling bad about yourself - or that you are a failure or have let yourself or your family down: not at all 7. Trouble concentrating on things, such as reading the newspaper or watching television: not at all 8. Moving or speaking so slowly that other people could have noticed. Or the opposite - being so fidgety or restless that you have been moving around a lot more than usual: not at all 9. Thoughts that you would be better off or of hurting yourself in some way: not at all Total score: 0 Depression Screening Interpretation: Negative Depression Screening Done: Yes 99203 - PHQ-9 Billing: Yes Source: Developed by Drs. Caesar Barrera, Kajal Zapata, Ian Figueroa and colleagues, with an educational ioana from [employer]. Thrive Questionnaire Date Thrive assessed: 09/01/24 I am a: Patient What is your living situation today?: I choose not to answer this question Within the past 12 months, did the food you bought not last and you didn't have the money to get more?: I choose not to answer this question Within the past 12 months, did you worry whether your food would run out before you got money to buy more?: I choose not to answer this question Do you have trouble paying for medicines?: I choose not to answer this question Do you have trouble getting transportation to medical appointments?: I choose not to answer this question Do you have trouble paying your heating and electricity bill?: I choose not to answer this question Do you have trouble taking care of your child, family member or friend?: I choose not to answer this question Do you have trouble with day-to-day activities such as bathing, preparing meals, shopping, managing finances, etc.?: I choose not to answer this question Are you currently unemployed and looking for a job?: I choose not to answer this question Are you interested in more education?: I choose not to answer this question Please select the resources that you would like help with: None Currently or been in a relationship where the following occur: I choose not to answer THRIVE Score: 0 AUDIT C Alcohol Use Questionnaire (AUDIT-C) 1. How often do you have a drink containing alcohol?: Never 2. How many drinks containing alcohol do you have on a typical day when you are drinking?: 1 or 2 3. How often do you have six or more drinks on one occasion?: Never Total Score: 0 FARIDEH-7 AMB Questionnaire FARIDEH-7 Date FARIDEH - 7 assessed: 09/01/24 Feeling nervous, anxious, or on edge: 0 = Not at all Not being able to stop or control worryin = Not at all Worrying too much about different things: 0 = Not at all Trouble relaxin = Not at all Being so restless that it is hard to sit still: 0 = Not at all Becoming easily annoyed or irritable: 0 = Not at all Feeling afraid as if something awful might happen: 0 = Not at all Total FARIDEH-7 score (0-4 normal; 5-9 mild; 10-14 moderate; 15-21 severe): 0 Source: Developed by Drs. Caesar Barrera, Kajal Zapata, Ian Figueroa and colleagues, with an educational ioana from [employer]. Review of Systems Const Denies poor appetite and Denies weakness Eyes Denies no additional complaints ENT Reports Normal hearing present, Denies dizziness, Denies nasal congestion, Denies tinnitus and Denies sore throat Card Denies chest pain, Denies syncope, Denies rapid heart rate and Denies dyspnea Resp Denies cough and Denies dyspnea GI Denies change in stool character, Reports constipation, Denies diarrhea, Denies nausea and Denies vomiting Denies dysuria and Denies urinary frequency Neuro Reports Normal hearing present, Denies confusion, Denies dizziness, Denies syncope and Denies weakness Psych Denies confusion Physical exam (Primary Care) Vital Signs: Last Vital Signs Pulse 85 09/01/24 12:38 BP 118/68 09/01/24 12:38 Pulse Ox 97 09/01/24 12:38 Oxygen Delivery Method Room Air 09/01/24 12:38 BMI result Body Mass Index 33.3 Tobacco/Smoking Status: Tobacco use Status Tobacco use date assessed 09/01/24 09/01/24 12:41 Patient Tobacco Use Status Current everyday Tobacco 09/01/24 12:41 Tobacco use type Cigarette 09/01/24 12:41 e-Cigarette/Vaping Use Never Used 09/01/24 12:41 PHQ-9: PHQ-9 Score PHQ-9: Total score 0 09/01/24 12:55 Depression Screening Interpretation: Negative Thrive Assessment: Date of Thrive Assessment Date Thrive assessed 09/01/24 09/01/24 12:41 Currently or been in a relationship where the following occur: I choose not to answer Const General: No confusion Orientation/consciousness: No confusion HENMT Other: R impacted cerumen, L clear TM intact Head: Yes normocephalic Ears: external ears normal Face and sinus: Yes normal facial exam Mouth: moist mucous membranes Throat: Yes tonsils normal Eyes Conjunctivae: conjunctivae normal Pupils: Equal, round and reactive pupils present and Pupil accommodation reflex normal Direct Ophthalmoscopy: normal light reflex Neck Neck: No lymphadenopathy Thyroid: Thyroid normal Chest Chest palpation & inspection: normal inspection of the chest Resp Effort & Inspection: normal respiratory effort and no audible wheezes Auscultation: clear to auscultation bilaterally, no crackles, no wheezes and lung sounds not diminished Cardio Rate: regular rate Rhythm: regular rhythm Peripheral pulses: radial pulses present and dorsalis pedis present GI Other: guaaic neg, prostate mild enlargement pin prick and pedal pulse N Palpation (GI): no masses Auscultation: normal bowel sounds and normoactive bowel sounds Male General Exam: Yes normal external exam Skin General skin exam: no rashes or lesions noted Rashes: no rashes Neuro General: No confusion Cranial nerves: Yes Equal, round and reactive pupils present and Yes Normal hearing present Cognition (Neuro): normal cognition Gait exam (Neuro): Normal gait present Motor exam (neuro): 5/5 motor strength present throughout Deep tendon reflexes (DTR's): Right brachioradialis reflex intensity grade: 2+, Left brachioradialis reflex intensity grade: 2+, Right patellar reflex intensity grade: 2+ and Left patellar reflex intensity grade: 2+ Extrem General: No edema Results AMB Hemoglobin A1c AMB Hemoglobin A1c 5.6 % Last Edit by Idania Bolanos CMA on 09/01/24 12:56 Results Reviewed Results Reviewed: Laboratory Last Values Hgb A1c (Clinic) 5.6 % (4.0-6.0) 09/01/24 12:41 Coding Level of Care Code Est Pt Prev Care 40-64y(82297) Diagnoses Annual physical exam Z00.00 Obesity (BMI 30-39.9) E66.9 Type 2 diabetes mellitus with hyperglycemia E11.65 Tubular adenoma D36.9 Nicotine dependence, cigarettes, uncomplicated F17.210 GERD (gastroesophageal reflux disease) K21.9 Hypercholesterolemia E78.00 Asthma J45.909 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 Additional Codes PHQ-9 - 14775 - PHQ-9 Billing: Yes ([id number]) Assessment & Plan Assessment & Plan (1) Annual physical exam: Code(s): Z00.00 - Encounter for general adult medical examination without abnormal findings Category: Medical (2) Obesity (BMI 30-39.9): Code(s): E66.9 - Obesity, unspecified Category: Medical (3) Type 2 diabetes mellitus with hyperglycemia: Comment: Eyesight and surgery [facility], Code(s): E11.65 - Type 2 diabetes mellitus with hyperglycemia Category: Medical (4) Tubular adenoma: Comment: 2, adenoma 2021-inadequate, November 2023 3-5 year Code(s): D36.9 - Benign neoplasm, unspecified site Category: Medical (5) Nicotine dependence, cigarettes, uncomplicated: Comment: (onset 14yo, 1ppd x 38yrs, 30+PYH) Code(s): F17.210 - Nicotine dependence, cigarettes, uncomplicated Category: Medical Plan: CT lung done 08/2023 (6) GERD (gastroesophageal reflux disease): Comment: Reflux precautions continue famotidine Code(s): K21.9 - Gastro-esophageal reflux disease without esophagitis Category: Medical (7) Hypercholesterolemia: Code(s): E78.00 - Pure hypercholesterolemia, unspecified Category: Medical (8) Asthma: Code(s): J45.909 - Unspecified asthma, uncomplicated Category: Medical (9) Schizophrenia: Code(s): F20.9 - Schizophrenia, unspecified Category: Medical Qualifiers: Schizophrenia type: disorganized schizophrenia Qualified Code(s): F20.1 - Disorganized schizophrenia Plan - Continue current medication regimen, including metformin for diabetes and fenofibrate for hyperlipidemia. - Encourage smoking cessation; discuss available resources and set goals. - Monitor blood glucose levels regularly. - Schedule follow-up blood work before the next visit. - Monitor prostate health and hemorrhoid status. - Maintain up-to-date vaccination status. - Annual foot exam to be scheduled per diabetes management plan. I reiterated the importance of smoking cessation and provided resources to aid in this effort. We discussed the current medication regimen and confirmed successful management of his blood glucose and lipid levels. I emphasized the need for continued compliance with diabetes management, and no new medications were introduced. Information on prostate health and hemorrhoid care was shared, advising on symptoms to monitor. The patient was instructed to complete blood tests before the next follow-up. I stressed that vaccines are current and essential for disease prevention. - Quit smoking; consider setting a quit date and exploring cessation resources. - Continue taking medications as prescribed. - Get blood work done as soon as possible. - Continue monitoring blood glucose and report any unusual readings. - Schedule a foot exam as part of diabetes care. - Seek medical advice if experiencing increased urination at night or other concerning symptoms. - Keep track of any changes in hemorrhoid symptoms. - Ensure all vaccinations remain up to date. - Follow up in three months or sooner if necessary. Orders: Orders AMB Hemoglobin A1c Today Z13.9 - Encounter for screening, unspecified
== END 2024-09-01 13:08 | disposition home or self-care (01) ==
PROVIDERS: PCP Internal Medicine; Visit Provider Internal Medicine
DX: Z00.00 Encounter for general adult medical examination without abnormal findings (principal); E11.65 Type 2 diabetes mellitus with hyperglycemia; F20.1 Disorganized schizophrenia; E66.9 Obesity, unspecified; Z68.33 Body mass index [BMI] 33.0-33.9, adult; D36.9 Benign neoplasm, unspecified site; F17.210 Nicotine dependence, cigarettes, uncomplicated; K21.9 Gastro-esophageal reflux disease without esophagitis; E78.00 Pure hypercholesterolemia, unspecified; J45.909 Unspecified asthma, uncomplicated

== ENCOUNTER → 2024-09-01 12:36 | Outpatient (BNVA) | payer MEDICARE, MEDICAID, SELFPAY | PROVIDERS: PCP Internal Medicine; Visit Provider Internal Medicine | DX: Z00.00 Encounter for general adult medical examination without abnormal findings (principal); E66.9 Obesity, unspecified; E11.65 Type 2 diabetes mellitus with hyperglycemia; D36.9 Benign neoplasm, unspecified site; K21.9 Gastro-esophageal reflux disease without esophagitis; J45.909 Unspecified asthma, uncomplicated; E78.00 Pure hypercholesterolemia, unspecified; F20.1 Disorganized schizophrenia; F17.210 Nicotine dependence, cigarettes, uncomplicated; Z71.6 Tobacco abuse counseling | CPT/HCPCS: 83036; 96127; 99396 ==

== ENCOUNTER 2024-09-05 09:46 | Outpatient (REF) | payer MEDICARE, MEDICAID, SELFPAY ==
--- NOTE | ~2024-09-05 | CT_ITS ---
CLINICAL HISTORY: F17.210 - Nicotine dependence, cigarettes, uncomplicated CT lung cancer screening (LDCT) Comparison: None Technique: Axial CT images of the chest using low-dose technique. Referring provider counseled the patient on shared decision-making for LDCT screening. Additional counseling was provided on smoking cessation. Effective radiation dose total: DLP 46.4 mGycm, CTDIvol 1.3 mGy. Findings: Tiny calcified granuloma is seen in the right upper lobe. No suspicious nodules otherwise noted. Coronary artery calcifications: None Cardiomediastinal structures normal. Limited upper abdomen: Unremarkable Other: None Impression: LungRADS 1: Negative exam. Continue annual screening with low dose Chest CT in 12 months. ##L1# Category 1: Normal; continue annual screening Category 2: Benign appearance or behavior, continue annual screening Category 3: Probably benign, [address] recommended Category 4A: Suspicious, [address] recommended; may consider PET/CT Category 4B: Suspicious, Additional diagnostics and/or tissue sampling recommended Category 4X: Suspicious, Additional diagnostics and/or tissue sampling recommended Category 0: Recalls (incomplete screen due to Incomplete coverage, Noise, Respiratory motion, Expiration, Obscured by acute abnormality) This document has been electronically signed by: Ravin Elias MD on 09/06/2024 13:16:59
== END 2024-09-05 09:47 | disposition home or self-care (01) ==
LOC: HO.CT 09:46
PROVIDERS: PCP Internal Medicine; Visit Provider Nurse Practitioner Family
DX: Z12.2 Encounter for screening for malignant neoplasm of respiratory organs (principal); F17.210 Nicotine dependence, cigarettes, uncomplicated
CPT/HCPCS: 71271

== ENCOUNTER → 2024-09-05 09:48 | Outpatient (BNV) | payer MEDICARE, MEDICAID, SELFPAY | PROVIDERS: PCP Internal Medicine; Visit Provider Radiology Diagnostic Radiology | DX: F17.210 Nicotine dependence, cigarettes, uncomplicated (principal) | CPT/HCPCS: 71271 ==

== ENCOUNTER 2024-10-21 08:43 | Outpatient (REF) | payer MEDICARE, MEDICAID, SELFPAY ==
[2024-10-21 09:12] LABS: MANUAL DIFF FLAG NO
[2024-10-21 09:37] LABS: Basophils Absolute Auto 0.1 X10*3/uL (0.0-0.2); Basophils Percent Auto 0.8 % (0-2); Eosinophils Absolute Auto 0.5 X10*3/uL (0.0-0.4); Eosinophils Percent Auto 6.5 % (0-4); Hematocrit 46.7 % (42.0-52.0); Hemoglobin 15.9 g/dl (14.0-18.0); Imm Gran Abs Auto 0.04 X10*3/uL (0.00-0.03); Imm Gran Pct Auto 0.5 % (0.0-0.4); Lymphocytes Absolute Auto 2.2 X10*3/uL (1.2-4.9); Lymphocytes Percent Auto 28.9 % (20-40); Mean Corpuscular Hemoglobin 32.4 pg (27.0-33.0); Mean Corpuscular Volume 95.3 fL (80.0-98.0); Mean Platelet Volume 11.2 fL (9.4-12.4); Monocytes Absolute Auto 0.5 X10*3/uL (0.1-1.2); Monocytes Percent Auto 6.6 % (2-11); Neutrophils Absolute Auto 4.3 x10*3/uL (2.0-8.3); Neutrophils Percent Auto 56.7 % (45-73); Platelet Count 185 X10*3/uL (160-400); Red Cell Distribution Width 12.9 % (11.0-16.0); White Blood Count 7.6 X10*3/uL (4.8-10.8)
[2024-10-21 10:06] LABS: Estimated Average Glucose 114 mg/dL; Hemoglobin A1c % 5.6 % (<6.0)
[2024-10-21 10:29] LABS: Albumin Level 4.5 g/dL (3.5-5.0); Alkaline Phosphatase 55 U/L (39-117); Anion Gap 12 (12-20); Aspartate Amino Transferase 22 U/L (5-37); Bilirubin Total 0.2 mg/dL (0.0-1.0); Blood Urea Nitrogen 17 mg/dL (9-16); Calcium 9.5 mg/dL (8.4-10.2); Carbon Dioxide 25 mmol/L (22-29); Chloride 108 mmol/L (96-108); Cholesterol 138 mg/dL (<200); Estimated Glomerular Filt Rate > 60; Glucose Random 129 mg/dL (60-115); HDL Cholesterol 38 mg/dL (>40); LDL Cholesterol Calculated 67 mg/dL (<100); Potassium 4.2 mmol/L (3.3-5.1); Sodium 141 mmol/L (135-145); Total Protein 7.4 g/dL (6.5-8.0); Triglycerides 167 mg/dL (<150)
[2024-10-21 10:59] LABS: Creatinine Urine 190.37 mg/dL; Microalbum/Creatinine Ratio Ur 44.6 ug/mg cr (<30)
[2024-10-21 11:02] LABS: Free T4 (Free Thyroxine) 0.79 ng/dL (0.71-1.85); Thyroid Stimulating Hormone 0.62 uIU/mL (0.32-4.0)
[2024-10-21 11:40] LABS: Folate 6.7 ng/mL (> or = 4.0); Prostate Specific Antigen Scr 0.78 ng/mL (<0.05-4.0); Vitamin B12 830 pg/mL (200-900)
[2024-10-21 13:48] LABS: Alanine Aminotransferase 24 U/L (0-40)
== END 2024-10-21 08:44 | disposition home or self-care (01) ==
LOC: HO.LAB 08:43
PROVIDERS: PCP Internal Medicine; Visit Provider Internal Medicine
DX: E11.65 Type 2 diabetes mellitus with hyperglycemia (principal); E78.00 Pure hypercholesterolemia, unspecified; Z12.5 Encounter for screening for malignant neoplasm of prostate
CPT/HCPCS: 36415; 80053; 80061; 82043; 82570; 82607; 82746; 83036; 84153; 84439; 84443; 85025

== ENCOUNTER 2024-10-24 10:30 | Outpatient (AMB) | payer MEDICARE, MEDICAID, SELFPAY ==
[2024-10-24 10:41] VITALS: BP 128/76; PULSE 88; O2SAT 96; BMI 33.1
--- NOTE | 2024-10-24 10:41 | A.OFFPC_ITS ---
Vital Signs 10/24/24 10:41 Height 5 ft 1 in Weight 175 lb BMI 33.1 BP 128/76 Blood Pressure Location Lt brachial Position Sitting Pulse 88 Pulse Source Pulse Oximeter Pulse Oximetry (%) 96 Oxygen Delivery Method Room Air Intake Visit Reasons: DM Allergies cantaloupe Allergy (Unknown, Verified 10/24/24 10:43) allergy cucumber Allergy (Unknown, Verified 10/24/24 10:43) allergy watermelon Allergy (Unknown, Verified 10/24/24 10:43) allergy Tobacco use date assessed: 09/01/24 Dental Screening Dental Screen Date: 10/24/24 Did you have a dental visit in the last 12 months?: Yes Did you have a dental problem in the last 6 months where you did not have access to dental care?: No Was dental information given to patient?: Patient has dentist [facility] Medical History (Updated 10/24/24 @ 11:21 by Melodie Berman MD) Hyperplastic colon polyp Nicotine dependence, cigarettes, uncomplicated Colon cancer screening Impacted cerumen of both ears Asthma Hypercholesterolemia GERD (gastroesophageal reflux disease) Obesity (BMI 30-39.9) Schizophrenia Surgical History (Updated 12/09/23 @ 11:58 by Magda Acosta) History of esophagogastroduodenoscopy (EGD) Hx of colonoscopy History of nasal surgery Family History (Updated 09/01/24 @ 12:40 by Idania Bolanos CMA) Father Medical history unknown Mother CVD (cardiovascular disease) Brother No problems noted. Sister No problems noted. Social History Household Members Other:: lives alone Housing: Apartment Alcohol intake: never Patient Tobacco Use Status: Current everyday Tobacco user Tobacco use type: Cigarette Cigarette Packs Per Day: 1 Years Smoked: started 14 years old, 1 pack a day (08/2023) Packs Per Year: 0 e-Cigarette/Vaping Use: Never Used Second Hand Smoke Exposure: Yes service: No Current occupational status: disabled Cognitive needs: No Hearing needs: No Vision needs: Yes Questionnaire PHQ-9 Over the last 2 weeks, how often have you been bothered by any of the following problems? 1. Little interest or pleasure in doing things: not at all 2. Feeling down, depressed, or hopeless: not at all 3. Trouble falling or staying asleep, or sleeping too much: not at all 4. Feeling tired or having little energy: not at all 5. Poor appetite or overeating: not at all 6. Feeling bad about yourself - or that you are a failure or have let yourself or your family down: not at all 7. Trouble concentrating on things, such as reading the newspaper or watching television: not at all 8. Moving or speaking so slowly that other people could have noticed. Or the opposite - being so fidgety or restless that you have been moving around a lot more than usual: not at all 9. Thoughts that you would be better off or of hurting yourself in some way: not at all Total score: 0 Depression Screening Interpretation: Negative Depression Screening Done: Yes 43277 - PHQ-9 Billing: Yes Source: Developed by Drs. Caesar Barrera, Kajal Zapata, Ian Figueroa and colleagues, with an educational ioana from [employer] Thrive Questionnaire Date Thrive assessed: 09/01/24 I am a: Patient What is your living situation today?: I choose not to answer this question Within the past 12 months, did the food you bought not last and you didn't have the money to get more?: I choose not to answer this question Within the past 12 months, did you worry whether your food would run out before you got money to buy more?: I choose not to answer this question Do you have trouble paying for medicines?: I choose not to answer this question Do you have trouble getting transportation to medical appointments?: I choose not to answer this question Do you have trouble paying your heating and electricity bill?: I choose not to answer this question Do you have trouble taking care of your child, family member or friend?: I choose not to answer this question Do you have trouble with day-to-day activities such as bathing, preparing meals, shopping, managing finances, etc.?: I choose not to answer this question Are you currently unemployed and looking for a job?: I choose not to answer this question Are you interested in more education?: I choose not to answer this question Please select the resources that you would like help with: None Currently or been in a relationship where the following occur: I choose not to answer THRIVE Score: 0 AUDIT C Alcohol Use Questionnaire (AUDIT-C) 1. How often do you have a drink containing alcohol?: Never 2. How many drinks containing alcohol do you have on a typical day when you are drinking?: 1 or 2 3. How often do you have six or more drinks on one occasion?: Never Total Score: 0 FARIDEH-7 AMB Questionnaire FARIDEH-7 Date FARIDEH - 7 assessed: 09/01/24 Source: Developed by Drs. Caesar Barrera, Kajal Zapata, Ian Figueroa and colleagues, with an educational ioana from [employer]. Physical exam (Primary Care) Vital Signs: Last Vital Signs Pulse 88 10/24/24 10:41 BP 128/76 10/24/24 10:41 Pulse Ox 96 10/24/24 10:41 Oxygen Delivery Method Room Air 10/24/24 10:41 BMI result Body Mass Index 33.1 Tobacco/Smoking Status: Tobacco use Status Tobacco use date assessed 09/01/24 10/24/24 10:50 Patient Tobacco Use Status Current everyday Tobacco 10/24/24 10:50 Tobacco use type Cigarette 10/24/24 10:50 e-Cigarette/Vaping Use Never Used 10/24/24 10:50 PHQ-9: PHQ-9 Score PHQ-9: Total score 0 10/24/24 11:22 Depression Screening Interpretation: Negative Thrive Assessment: Date of Thrive Assessment Date Thrive assessed 09/01/24 10/24/24 10:50 Currently or been in a relationship where the following occur: I choose not to answer Const General: alert; No acute distress Eyes Conjunctivae: conjunctivae normal Resp Auscultation: clear to auscultation bilaterally Cardio Rate: regular rate Rhythm: regular rhythm GI Inspection: Yes normal to inspection Extrem General: Yes normal to inspection and No edema Coding Level of Care Code Est Pt Level 4 (79808) Complex EM visit Add On G2211 Diagnoses Nicotine dependence, cigarettes, uncomplicated F17.210 Type 2 diabetes mellitus with hyperglycemia E11.65 Hypercholesterolemia E78.00 GERD (gastroesophageal reflux disease) K21.9 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 Additional Codes PHQ-9 - 57643 - PHQ-9 Billing: Yes ([id number]) Assessment & Plan Assessment & Plan (1) Nicotine dependence, cigarettes, uncomplicated: Comment: (onset 14yo, 1ppd x 38yrs, 30+PYH) August 2024 Code(s): F17.210 - Nicotine dependence, cigarettes, uncomplicated Category: Medical Plan: CT scan done August 2024 continue to monitor (2) Type 2 diabetes mellitus with hyperglycemia: Comment: Eyesight and surgery [facility], Code(s): E11.65 - Type 2 diabetes mellitus with hyperglycemia Category: Medical Plan: Decrease the amount of carbohydrate intake, pasta, bread, rice and potatoes are all sugar and that is aside from all the sweet stuff, remember that fruits are good but they are Sweet also. Hemoglobin A1c is under control goal of less than 6.5 on metformin 500 mg twice a day (3) Hypercholesterolemia: Code(s): E78.00 - Pure hypercholesterolemia, unspecified Category: Medical Plan: Avoid fried foods, chicken skin, eggs, butter margarine, pastries and meat. Be it pork or beef they have a lot of cholesterol LDL goal of less than 100 and triglyceride of less than 150 patient on fenofibrate only. (4) GERD (gastroesophageal reflux disease): Comment: Reflux precautions continue famotidine Code(s): K21.9 - Gastro-esophageal reflux disease without esophagitis Category: Medical Plan: Avoid the foods that causes that usually spicy foods, tomato products, juices, coffee, soda and foods that your sensitive to. After eating do not lie down, allow 3-4 hours before in lie down. And keep the head of bed above 30 degrees to avoid the acid from going up. Patient is strongly advised to stop smoking (5) Schizophrenia: Code(s): F20.9 - Schizophrenia, unspecified Category: Medical Qualifiers: Schizophrenia type: disorganized schizophrenia Qualified Code(s): F20.1 - Disorganized schizophrenia Plan: Continue with counseling and therapy Plan History of Present Illness Health Maintenance - Diabetes management: Continued monitoring with a target hemoglobin A1c of less than 6.5. - Hypercholesterolemia management: LDL goal of less than 100 mg/dL and triglycerides less than 150 mg/dL. - Smoking cessation: Strong advisement to stop smoking, ongoing counseling and therapy support. - Vaccinations discussed: Shingles, tetanus, and pneumonia vaccines are up-to-date. - Regular exercise: Encouraged to engage in routine physical activity, specifically walking. - Colon cancer screening: Last colonoscopy performed in 2023. - Lung cancer screening: Recent CT scan in August 2024 was negative. Social History - Smoker: Advised to quit smoking; ongoing counseling provided. - Physical activity: Engages in regular walks, particularly when visiting parents. - Vaccinations: Up-to-date with vaccinations, including shingles, tetanus, and pneumonia. Review of Systems - General: Denies unexplained weight change. - Diet and Nutrition: Complaints regarding weight, recommended weight loss. - Respiratory: Reports smoking tobacco. - Gastrointestinal: Reports symptoms of gastroesophageal reflux disease. Physical Exam - Cardiovascular- Heart sounds auscultated. Results - Labs: Normal blood count, normal electrolytes, normal renal function, liver function within normal limits. Blood glucose of 129 mg/dL, hemoglobin A1c 5.6%, LDL 67 mg/dL, triglycerides 167 mg/dL, and normal folic acid and thyroid hormone levels. - Diagnostics: Negative CT scan for lung cancer screening performed in August 2024. Plan 1. 6, under the target of 6.5, and metformin continuation is advised. Hypercholesterolemia management through fenofibrate remains appropriate, with LDL and triglyceride goals in place. Addressing GERD involves cessation of smoking and ongoing counseling. Proteinuria monitoring remains essential, with continued use of lisinopril. The patient's vaccination schedule is up-to-date. Emphasis on regular exercise to aid weight management persists, with no immediate procedural interventions needed. Smoking cessation remains a priority for overall health improvement.: Patient was informed and verbally consented to the use of an ambient scribe for clinic note documentation during this visit. Discussion Notes I engaged in a comprehensive discussion with the patient regarding their current diagnoses and treatment strategies. For diabetes management, I explained that hemoglobin A1c is well-managed and reinforced the continuation of metformin therapy. We discussed hypercholesterolemia and the effectiveness of fenofibrate given the recent labs. The importance of smoking cessation for managing GERD and overall health was emphasized, with continued counseling recommended. I reviewed the negative lung cancer screening and explained ongoing proteinuria monitoring, discussing the role of lisinopril. We confirmed that all vaccinations were current. No additional immediate interventions were scheduled, and we talked about the value of regular exercise in weight and health management. Patient Instructions - Continue taking metformin as prescribed. - Maintain current fenofibrate therapy for cholesterol management. - Stop smoking; continue with counseling for smoking cessation. - Engage in regular physical exercise, such as walking. - Follow up with routine lab monitoring and kidney function. - Stay up-to-date with vaccinations. - Be aware of health changes and contact me if new symptoms develop. - Maintain dietary habits that support weight management efforts.
== END 2024-10-24 12:18 | disposition home or self-care (01) ==
LOC: HO.HMCH 10:31
PROVIDERS: PCP Internal Medicine; Visit Provider Internal Medicine
DX: E11.65 Type 2 diabetes mellitus with hyperglycemia (principal); F20.1 Disorganized schizophrenia; F17.210 Nicotine dependence, cigarettes, uncomplicated; E78.00 Pure hypercholesterolemia, unspecified; K21.9 Gastro-esophageal reflux disease without esophagitis

== ENCOUNTER → 2024-10-24 10:30 | Outpatient (BNVA) | payer MEDICARE, MEDICAID, SELFPAY | PROVIDERS: PCP Internal Medicine; Visit Provider Internal Medicine | DX: E11.65 Type 2 diabetes mellitus with hyperglycemia (principal); E78.00 Pure hypercholesterolemia, unspecified; K21.9 Gastro-esophageal reflux disease without esophagitis; F20.1 Disorganized schizophrenia; F17.210 Nicotine dependence, cigarettes, uncomplicated; Z71.6 Tobacco abuse counseling | CPT/HCPCS: 96127; 99212 ==

== ENCOUNTER 2025-02-28 10:43 | Outpatient (AMB) | payer MEDICARE, MEDICAID, SELFPAY ==
--- NOTE | 2025-02-28 10:47 | MHC.PC.OV ---
Intake Visit Reasons: SAWV Allergies cantaloupe Allergy (Unknown, Verified 10/24/24 10:43) allergy cucumber Allergy (Unknown, Verified 10/24/24 10:43) allergy watermelon Allergy (Unknown, Verified 10/24/24 10:43) allergy Tobacco use date assessed: 09/01/24 Dental Screening Dental Screen Date: 10/24/24 [facility] Medical History (Updated 10/24/24 @ 11:21 by Melodie Berman MD) Hyperplastic colon polyp Nicotine dependence, cigarettes, uncomplicated Colon cancer screening Impacted cerumen of both ears Asthma Hypercholesterolemia GERD (gastroesophageal reflux disease) Obesity (BMI 30-39.9) Schizophrenia Surgical History (Updated 12/09/23 @ 11:58 by Magda Acosta) History of esophagogastroduodenoscopy (EGD) Hx of colonoscopy History of nasal surgery Family History (Updated 09/01/24 @ 12:40 by Idania Bolanos CMA) Father Medical history unknown Mother CVD (cardiovascular disease) Brother No problems noted. Sister No problems noted. Social History Household Members Other:: lives alone Housing: Apartment Alcohol intake: never Patient Tobacco Use Status: Current everyday Tobacco user Tobacco use type: Cigarette Cigarette Packs Per Day: 1 Years Smoked: started 14 years old, 1 pack a day (08/2023) e-Cigarette/Vaping Use: Never Used Second Hand Smoke Exposure: Yes service: No Current occupational status: disabled Cognitive needs: No Hearing needs: No Vision needs: Yes Questionnaire Thrive Questionnaire Date Thrive assessed: 09/01/24 I am a: Patient What is your living situation today?: I choose not to answer this question Within the past 12 months, did the food you bought not last and you didn't have the money to get more?: I choose not to answer this question Within the past 12 months, did you worry whether your food would run out before you got money to buy more?: I choose not to answer this question Do you have trouble paying for medicines?: I choose not to answer this question Do you have trouble getting transportation to medical appointments?: I choose not to answer this question Do you have trouble paying your heating and electricity bill?: I choose not to answer this question Do you have trouble taking care of your child, family member or friend?: I choose not to answer this question Do you have trouble with day-to-day activities such as bathing, preparing meals, shopping, managing finances, etc.?: I choose not to answer this question Are you currently unemployed and looking for a job?: I choose not to answer this question Are you interested in more education?: I choose not to answer this question Please select the resources that you would like help with: None Currently or been in a relationship where the following occur: I choose not to answer THRIVE Score: 0 FARIDEH-7 AMB Questionnaire FARIDEH-7 Date FARIDEH - 7 assessed: 09/01/24 Source: Developed by Drs. Caesar Barrera, Kajal Zapata, Ian Figueroa and colleagues, with an educational ioana from [employer]. Physical exam (Primary Care) Tobacco/Smoking Status: Tobacco use Status Tobacco use date assessed 09/01/24 10/24/24 10:50 Patient Tobacco Use Status Current everyday Tobacco 10/24/24 10:50 Tobacco use type Cigarette 10/24/24 10:50 e-Cigarette/Vaping Use Never Used 10/24/24 10:50 Thrive Assessment: Date of Thrive Assessment Date Thrive assessed 09/01/24 10/24/24 10:50 Currently or been in a relationship where the following occur: I choose not to answer Coding
[2025-02-28 10:49] VITALS: BP 138/92; PULSE 100; RESP 18; TEMP 36.3; O2SAT 96; BMI 32.9
--- NOTE | 2025-02-28 10:49 | AM.OFFVISMDC ---
Intake Vital Signs 02/28/25 10:49 02/28/25 11:01 Height 5 ft 1 in Weight 174 lb BMI 32.9 BP 138/92 H 136/80 Blood Pressure Location Lt brachial Lt brachial Position Sitting Sitting Respiration 18 Pulse 100 Pulse Source Pulse Oximeter Temp 97.3 F Temp Source Temporal Artery Scan Pulse Oximetry (%) 96 Oxygen Delivery Method Room Air Intake Visit Reasons: SAWV Allergies cantaloupe Allergy (Unknown, Verified 02/28/25 10:52) allergy cucumber Allergy (Unknown, Verified 02/28/25 10:52) allergy watermelon Allergy (Unknown, Verified 02/28/25 10:52) allergy Medication List - Last Reconciled 02/28/25 by Melodie Berman MD aripiprazole (Abilify) 30 mg PO DAILY blood sugar diagnostic ([employer] No Coding strips) As directed check the blood sugars once a day blood sugar diagnostic (Accu-Chek Guide test strips) As directed check BS QD blood-glucose meter ([employer] Autocode Blood Glucose Monitoring System) As directed bupropion HCl SR (Wellbutrin SR) 100 mg PO DAILY cholecalciferol (vitamin D3) 25 mcg PO DAILY famotidine 40 mg PO BID fenofibrate 160 mg PO DAILY 90 days haloperidol 5 mg PO BEDTIME lancets ([employer] Lancets) As directed check the blood sugar once a day lancets (Accu-Chek Softclix Lancets) As directed once per day lisinopril 2.5 mg PO DAILY metformin 500 mg PO BID 90 days naltrexone 50 mg PO DAILY psyllium husk (Reguloid (psyllium husk)) 0.8 grams (2 x 0.4 gram) PO DAILY HPI SAWV HPI Details [place] [facility] care [facility] Gastroenterology, Ophthalmology is eyesight and surgery, Podiatry Dr. Garcia(September 2023) pulmonary [facility] Medical History Hyperplastic colon polyp Nicotine dependence, cigarettes, uncomplicated Colon cancer screening Impacted cerumen of both ears Asthma Hypercholesterolemia GERD (gastroesophageal reflux disease) Obesity (BMI 30-39.9) Schizophrenia Surgical History History of esophagogastroduodenoscopy (EGD) Hx of colonoscopy History of nasal surgery Family History Father Medical history unknown Mother CVD (cardiovascular disease) Brother No problems noted. Sister No problems noted. Social History Household Members Other:: lives alone Housing: Apartment Alcohol intake: never Patient Tobacco Use Status: Current everyday Tobacco user Tobacco use type: Cigarette Cigarette Packs Per Day: 1 Years Smoked: started 14 years old, 1 pack a day (08/2023) e-Cigarette/Vaping Use: Never Used Second Hand Smoke Exposure: Yes service: No Current occupational status: disabled Cognitive needs: No Hearing needs: No Vision needs: Yes Questionnaire Medicare Wellness Checkup What gender do you identify with?: male During the past 4 weeks, how much have you been bothered by emotional problems such as feeling anxious, depressed, irritable, sad or downhearted, and blue?: not at all During the past 4 weeks, has your physical & emotional health limited your social activities with family, friends, neighbors, or groups?: not at all During the past 4 weeks, how much bodily pain have you generally had?: no pain During the past 4 weeks, was someone available to help you if you needed & wanted help?: no, not at all During the past 4 weeks, what was the hardest physical activity you could do for at least 2 minutes?: very light Can you get to places out of walking distance without help? (For eg., can you travel alone on buses, taxis or drive your car?): Yes Can you go shopping for groceries or clothes without someone's help?: No Can you prepare your own meals?: Yes Can you do your housework without help?: No Because of any health problems, do you need the help of another person with your personal care needs such as eating, bathing, dressing or getting around the house?: No Can you handle your own money without help?: No During the past 4 weeks, how would you rate your health in general?: good During the past 4 weeks how have things been going for you?: pretty well Are you having difficulties driving your car?: not applicable, I don't use a car Do you always fasten your seat belt when you are in a car?: yes, usually During past 4 weeks, have you been bothered by the following: never: Falling or dizzy when standing up, Sexual problems?, Trouble eating well?, Teeth or denture problems?, Problems using the telephone? and Tiredness or fatigue? Have you fallen 2 or more times in the past year?: No Are you afraid of falling?: No Are you a smoker?: yes, but I'm not ready to quit During the past 4 weeks, how many drinks of wine, beer, or other alcoholic beverages did you have?: no alcohol at all Do you exercise for about 20 minutes 3 or more times a week?: yes, all the time Have you been given information to help with the following?: yes: Hazards in your house that might hurt you? and yes: Keeping track of your medications? How often do you have trouble taking medicines the way you have been told to take them?: I always take medicine as prescribed How confident are you that you can control & manage most of your health problems?: somewhat confident What is your race?: White PHQ-9 Over the last 2 weeks, how often have you been bothered by any of the following problems? 1. Little interest or pleasure in doing things: not at all 2. Feeling down, depressed, or hopeless: not at all 3. Trouble falling or staying asleep, or sleeping too much: not at all 4. Feeling tired or having little energy: not at all 5. Poor appetite or overeating: not at all 6. Feeling bad about yourself - or that you are a failure or have let yourself or your family down: not at all 7. Trouble concentrating on things, such as reading the newspaper or watching television: not at all 8. Moving or speaking so slowly that other people could have noticed. Or the opposite - being so fidgety or restless that you have been moving around a lot more than usual: not at all 9. Thoughts that you would be better off or of hurting yourself in some way: not at all Total score: 0 Depression Screening Interpretation: Negative Depression Screening Done: Yes 91778 - PHQ-9 Billing: Yes Source: Developed by Drs. Caesar Barrera, Kajal Zapata, Ian Figueora and colleagues, with an educational ioana from [employer]. Review of Systems Const Denies poor appetite and Denies weakness Eyes Denies no additional complaints ENT Reports Normal hearing present, Denies dizziness, Denies nasal congestion, Denies tinnitus and Denies sore throat Card Denies chest pain, Denies syncope, Denies rapid heart rate and Denies dyspnea Resp Denies cough and Denies dyspnea GI Denies change in stool character, Reports constipation, Denies diarrhea, Denies nausea and Denies vomiting Denies dysuria and Denies urinary frequency Neuro Reports Normal hearing present, Denies confusion, Denies dizziness, Denies syncope and Denies weakness Psych Denies confusion Physical Exam Vital Signs: Last Vital Signs Temp 97.3 F 02/28/25 10:49 Pulse 100 02/28/25 10:49 Resp 18 02/28/25 10:49 BP 136/80 02/28/25 11:01 Pulse Ox 96 02/28/25 10:49 Oxygen Delivery Method Room Air 02/28/25 10:49 BMI result Body Mass Index 32.9 Const General: No confusion Orientation/consciousness: No confusion HEENT Other: impacted cerumen Right ,L TM intact Head: Yes normocephalic Ears: external ears normal Face and sinus: Yes normal facial exam Mouth: moist mucous membranes Throat: Yes tonsils normal Eyes Conjunctivae: conjunctivae normal Pupils: Equal, round and reactive pupils present and Pupil accommodation reflex normal Direct Ophthalmoscopy: normal light reflex Neck Neck: No lymphadenopathy Thyroid: Thyroid normal Chest Chest palpation & inspection: normal inspection of the chest Resp Effort & Inspection: normal respiratory effort and no audible wheezes Auscultation: clear to auscultation bilaterally, no crackles, no wheezes and lung sounds not diminished Cardio Rate: regular rate Rhythm: regular rhythm Peripheral pulses: radial pulses present and dorsalis pedis present GI Other: guaiac negative prostate N Palpation (GI): no masses Auscultation: normal bowel sounds and normoactive bowel sounds Other: pedal pulse and pin prick good Male General Exam: Yes normal external exam Skin General skin exam: no rashes or lesions noted Rashes: no rashes Neuro General: No confusion Cranial nerves: Yes Equal, round and reactive pupils present and Yes Normal hearing present Cognition (Neuro): normal cognition Gait exam (Neuro): Normal gait present Motor exam (neuro): 5/5 motor strength present throughout Deep tendon reflexes (DTR's): Right brachioradialis reflex intensity grade: 2+, Left brachioradialis reflex intensity grade: 2+, Right patellar reflex intensity grade: 2+ and Left patellar reflex intensity grade: 2+ Extrem General: No edema Results AMB Hemoglobin A1c AMB Hemoglobin A1c 6.2 % Last Edit by Cristela Hoover CMA on 02/28/25 10:57 Results Reviewed Results Reviewed: Laboratory Last Values Hgb A1c (Clinic) 6.2 % (4.0-6.0) H 02/28/25 10:56 Assessment & Plan Assessment & Plan (1) Encounter for subsequent annual wellness visit (AWV) in Medicare patient: Code(s): Z00.00 - Encounter for general adult medical examination without abnormal findings Plan: Patient is advised to eat healthy, keep well hydrated, keep active and have adequate sleep. (2) Nicotine dependence, cigarettes, uncomplicated: Comment: (onset 14yo, 1ppd x 38yrs, 30+PYH) August 2024 Code(s): F17.210 - Nicotine dependence, cigarettes, uncomplicated Plan: Patient is strongly advised to stop smoking. Patient is enrolled in the lung cancer screening program and the last CAT scan was done in August 2024 (3) Asthma: Code(s): J45.909 - Unspecified asthma, uncomplicated Plan: Strongly advised to stop smoking! (4) GERD (gastroesophageal reflux disease): Comment: Reflux precautions continue famotidine Code(s): K21.9 - Gastro-esophageal reflux disease without esophagitis Plan: Avoid the foods that causes that usually spicy foods, tomato products, juices, coffee, soda and foods that your sensitive to. After eating do not lie down, allow 3-4 hours before in lie down. And keep the head of bed above 30 degrees to avoid the acid from going up. (5) Type 2 diabetes mellitus with hyperglycemia: Comment: Eyesight and surgery [facility], Code(s): E11.65 - Type 2 diabetes mellitus with hyperglycemia Plan: Decrease the amount of carbohydrate intake, pasta, bread, rice and potatoes are all sugar and that is aside from all the sweet stuff, remember that fruits are good but they are Sweet also. Hemoglobin A1c goal of less than 6.5. Patient on metformin 500 mg twice a day (6) Obesity (BMI 30-39.9): Code(s): E66.9 - Obesity, unspecified Plan: Diet and exercise (7) Hypercholesterolemia: Code(s): E78.00 - Pure hypercholesterolemia, unspecified Plan: Avoid fried foods, chicken skin, eggs, butter margarine, pastries and meat. Be it pork or beef they have a lot of cholesterol LDL goal of less than 100 and triglyceride of less than 150 patient on fenofibrate 160 mg once a day (8) Schizophrenia: Code(s): F20.9 - Schizophrenia, unspecified Qualifiers: Schizophrenia type: disorganized schizophrenia Qualified Code(s): F20.1 - Disorganized schizophrenia Plan: Continue to follow-up with counseling and therapy (9) Impacted cerumen of right ear: Code(s): H61.21 - Impacted cerumen, right ear Plan History of Present Illness The patient is a 54-year-old male presenting for an annual wellness visit. He has a history of obesity, schizophrenia, gastroesophageal reflux disease (GERD), hypercholesterolemia, asthma, diabetes mellitus, and a history of tubular adenoma of the colon. His last colonoscopy was in November 2023, and he has been experiencing constipation. The patient was last seen in October 2024, with his last blood work showing normal blood count, electrolytes, and renal function. His hemoglobin A1c was 5.6, with a blood sugar of 129 mg/dL, and liver function tests were within normal limits. LDL cholesterol was 67 mg/dL, triglycerides were 167 mg/dL, and PSA, B12, folic acid, and thyroid levels were normal. The patient has proteinuria and is a smoker, consuming about a pack of cigarettes per day. He is advised to stop smoking and is enrolled in a lung cancer screening program, with the last CT scan of the chest done in August 2024. He is currently on metformin 500 mg twice a day for diabetes, with a goal hemoglobin A1c of less than 6.5. For hypercholesterolemia, he is on fenofibrate 160 mg once a day, with an LDL goal of less than 100 mg/dL and triglycerides less than 150 mg/dL. He is also on Abilify, Wellbutrin, haloperidol, lisinopril, naltrexone, and psyllium for fiber. Health Maintenance - Lung cancer screening program enrollment with last CT scan in August 2024 - Blood work scheduled for three months from now - Vaccinations up to date: shingles, tetanus, and pneumonia Social History - Tobacco use: Smokes about a pack of cigarettes per day - Exercise: Engages in bladder walking - Diet: Eating healthier with reduced protein intake Review of Systems - General: Denies recent falls, dizziness, or syncope - Cardiovascular: Denies chest pain or palpitations - Respiratory: Denies dyspnea or cough - Gastrointestinal: Denies nausea, vomiting, or blood in stools; reports constipation managed with MiraLAX - Genitourinary: Reports nocturia, waking up twice per night to urinate - Neurological: Denies headaches or balance issues Physical Exam General: Cooperative, healthy appearing, comfortable, no acute distress and well developed Orientation: Patient oriented x3 Limitations: No limitations Head: Normal to inspection Ears: Hearing grossly normal bilaterally, but right ear has a lot of earwax, potentially blocking the eardrum Nose: Normal external nose present Face and sinus: Normal facial exam Eyes: Appearance normal, both eyes and all related structures Neck: Normal visual inspection and Yes full ROM Respiratory: Normal respiratory effort and able to speak in complete sentences. Clear to auscultation bilaterally Cardiovascular: Regular rate and rhythm. Normal S1 and S2 GI: Normal to inspection. Soft to palpation and nontender. Presence of hemorrhoids noted Skin: No rashes or lesions noted Neuro: Patient oriented x3 Extremities: Normal to inspection Results - Labs: Normal blood count, electrolytes, renal function, liver function tests; hemoglobin A1c 5.6%, blood sugar 129 mg/dL, LDL cholesterol 67 mg/dL, triglycerides 167 mg/dL, PSA, B12, folic acid, and thyroid levels normal - Imaging: Last CT scan of the chest in August 2024 Plan The patient will continue metformin 500 mg twice daily for diabetes management, with a target hemoglobin A1c of less than 6.5%. For hypercholesterolemia, fenofibrate 160 mg once daily is prescribed, aiming for LDL cholesterol below 100 mg/dL and triglycerides under 150 mg/dL. Smoking cessation is strongly advised, and the patient remains enrolled in a lung cancer screening program, with the last CT scan performed in August 2024. Follow-up is scheduled in three months for blood work to assess cholesterol and overall health. Vaccinations are current, including shingles, tetanus, and pneumonia. The patient is encouraged to continue a healthy lifestyle with regular exercise and a balanced diet, focusing on bladder walking and reduced protein intake. Patient was informed and verbally consented to the use of an ambient scribe for clinic note documentation during this visit. Discussion Notes During the visit, I discussed the importance of maintaining diabetes control with metformin and the goals for cholesterol management with fenofibrate. We reviewed the need for smoking cessation and the benefits of the lung cancer screening program. I emphasized the importance of regular follow-up and scheduled blood work in three months to monitor progress. We also confirmed that vaccinations are up to date, and I encouraged the patient to continue with a healthy diet and exercise routine. Patient Instructions - Continue taking metformin 500 mg twice daily. - Take fenofibrate 160 mg once daily. - Stop smoking and continue participation in the lung cancer screening program. - Follow up in three months for blood work. - Maintain a healthy diet and exercise regularly, focusing on bladder walking and reduced protein intake. - Ensure vaccinations are up to date. Orders: Orders Lipid Panel 3 Months E78.00 - Pure hypercholesterolemia, unspecified Comprehensive Met. Panel 3 Months E78.00 - Pure hypercholesterolemia, unspecified AMB Hemoglobin A1c Today Z13.9 - Encounter for screening, unspecified Hemoglobin A1c 3 Months E78.00 - Pure hypercholesterolemia, unspecified Medications: New simvastatin 5 mg PO BEDTIME 30 tabs 12RF E78.00 - Pure hypercholesterolemia, unspecified Quality Reporting (2019) Depression/Bipolar (159/160/161/177) PHQ-9: Total score: 0 Coding Level of Care Code Medicare Subsequent (G0439) Diagnoses Encounter for subsequent annual wellness visit (AWV) in Medicare patient Z00.00 Nicotine dependence, cigarettes, uncomplicated F17.210 Asthma J45.909 GERD (gastroesophageal reflux disease) K21.9 Type 2 diabetes mellitus with hyperglycemia E11.65 Obesity (BMI 30-39.9) E66.9 Hypercholesterolemia E78.00 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
[2025-02-28 11:01] VITALS: BP 136/80
--- OUTSIDE RECORDS SUMMARY | 2025-02-28 11:56 | XMS_ITS ---
Author Name [facility] Organization Unknown Care Team Organization Name Specialty Phone Email Start Date End Da te [employer] 01/20/2025 01/25/2025
== END 2025-02-28 11:23 | disposition home or self-care (01) ==
LOC: HO.HMCH 10:43
PROVIDERS: PCP Internal Medicine; Visit Provider Internal Medicine
DX: Z00.00 Encounter for general adult medical examination without abnormal findings (principal); E11.65 Type 2 diabetes mellitus with hyperglycemia; F17.210 Nicotine dependence, cigarettes, uncomplicated; F20.1 Disorganized schizophrenia; J45.909 Unspecified asthma, uncomplicated; K21.9 Gastro-esophageal reflux disease without esophagitis; E66.9 Obesity, unspecified; E78.00 Pure hypercholesterolemia, unspecified; H61.21 Impacted cerumen, right ear

== ENCOUNTER → 2025-02-28 10:43 | Outpatient (BNVA) | payer MEDICARE, MEDICAID, SELFPAY | PROVIDERS: PCP Internal Medicine; Visit Provider Internal Medicine | DX: Z00.00 Encounter for general adult medical examination without abnormal findings (principal); J45.909 Unspecified asthma, uncomplicated; K21.9 Gastro-esophageal reflux disease without esophagitis; E11.65 Type 2 diabetes mellitus with hyperglycemia; E66.9 Obesity, unspecified; E78.00 Pure hypercholesterolemia, unspecified; F20.1 Disorganized schizophrenia; H61.21 Impacted cerumen, right ear; F17.210 Nicotine dependence, cigarettes, uncomplicated | CPT/HCPCS: 83036; 96127 ==

== ENCOUNTER 2025-06-27 09:41 | Outpatient (AMB) | payer MEDICARE, MEDICAID, SELFPAY ==
[2025-06-27 09:46] VITALS: BP 142/84; PULSE 97; TEMP 36.3; O2SAT 96; BMI 34.5
--- NOTE | 2025-06-27 09:46 | A.OFFPC_ITS ---
Vital Signs 06/27/25 09:46 06/27/25 10:03 Height 5 ft 1 in Weight 182 lb 6 oz BMI 34.5 BP 142/84 H 130/80 Blood Pressure Location Lt brachial Lt brachial Position Sitting Sitting Pulse 97 Pulse Source Pulse Oximeter Temp 97.3 F Temp Source Temporal Artery Scan Pulse Oximetry (%) 96 Oxygen Delivery Method Room Air Intake Visit Reasons: Cholesterol Allergies cantaloupe Allergy (Unknown, Verified 06/27/25 09:49) allergy cucumber Allergy (Unknown, Verified 06/27/25 09:49) allergy watermelon Allergy (Unknown, Verified 06/27/25 09:49) allergy Medication List - Last Reconciled 06/27/25 by Melodie Berman MD aripiprazole (Abilify) 30 mg PO DAILY blood sugar diagnostic (H.BLOOM No Coding strips) As directed check the blood sugars once a day blood sugar diagnostic (Accu-Chek Guide test strips) As directed check BS QD blood-glucose meter (H.BLOOM Autocode Blood Glucose Monitoring System) As directed bupropion HCl SR (Wellbutrin SR) 100 mg PO DAILY cholecalciferol (vitamin D3) 25 mcg PO DAILY famotidine 40 mg PO BID fenofibrate 160 mg PO DAILY 90 days haloperidol 5 mg PO BEDTIME lancets (H.BLOOM Lancets) As directed check the blood sugar once a day lancets (Accu-Chek Softclix Lancets) As directed once per day lisinopril 2.5 mg PO DAILY metformin 500 mg PO BID 90 days naltrexone 50 mg PO DAILY psyllium husk (Reguloid (psyllium husk)) 0.8 grams (2 x 0.4 gram) PO DAILY simvastatin 5 mg PO BEDTIME Tobacco use date assessed: 06/27/25 Dental Screening Dental Screen Date: 06/27/25 Did you have a dental visit in the last 12 months?: Yes Did you have a dental problem in the last 6 months where you did not have access to dental care?: No Was dental information given to patient?: Patient has dentist HPI HPI Comments History of Present Illness Details History of Present Illness The patient is a 54-year-old obese male presenting for a follow-up visit after an annual wellness check in February. He has a history of schizophrenia, hypercholesterolemia, asthma, diabetes mellitus, and a tubular adenoma of the colon found on his last colonoscopy in November 2023. He is a current smoker. His last blood work in October showed a normal blood count, electrolytes, and liver function with a stable creatinine of 1.08. At that time, his fasting blood sugar was 129 mg/dL and his hemoglobin A1c was 6.2%, an increase from a prior value of 5.6%. His LDL cholesterol was 67 mg/dL, though triglycerides were elevated, and urinalysis showed proteinuria. His PSA, vitamin B12, folic acid, and thyroid levels were all within normal limits. Since 2023, the patient's weight has increased from 170 pounds to 182 pounds. His medications include metformin 500 mg twice daily and simvastatin 5 mg once daily. He had a CT scan of the lung in August 2024 and is up to date with his eye exams. Health Maintenance A request for new blood work has been placed to be completed before the next visit. Follow-up is scheduled in three months. Social History - Substance Use: The patient is a curren t smoker and was strongly advised to quit. - Exercise: Discussed the need for more exercise in relation to weight gain. - Weight Management: The patient has had a recent weight gain of 12 pounds, increasing from 170 lbs to 182 lbs since 2023. - Mental Health: The patient has a histo ry of schizophrenia and is advised to continue with counseling and therapy. Results - Labs (from October): - Complete blood count: Normal. - Electrolytes: Normal. - Renal function: Creatinine 1.08, stabl e. - Fasting blood sugar: 129 mg/dL. - Hemoglobin A1c: 6.2%. - Liver function tests: Normal. - Lipid panel: LDL 67 mg/dL, triglycerid es elevated. - PSA, Vitamin B12, Folic Acid, Thyroid: All within normal limits. - Urinalysis: Proteinuria. - Imaging (from August 2024): - CT of the lung was performed. - Procedures (from November 2023): - Colonoscopy: Showed tubular adenoma of the colon. [facility] Medical History Hyperplastic colon polyp Nicotine dependence, cigarettes, uncomplicated Colon cancer screening Impacted cerumen of both ears Asthma Hypercholesterolemia GERD (gastroesophageal reflux disease) Obesity (BMI 30-39.9) Schizophrenia Surgical History History of esophagogastroduodenoscopy (EGD) Hx of colonoscopy History of nasal surgery Family History Father Medical history unknown Mother CVD (cardiovascular disease) Brother No problems noted. Sister No problems noted. Social History Household Members Other:: lives alone Housing: Apartment Alcohol intake: never Patient Tobacco Use Status: Current everyday Tobacco user Tobacco use type: Cigarette Cigarette Packs Per Day: 1 Years Smoked: started 14 years old, 1 pack a day (08/2023) e-Cigarette/Vaping Use: Never Used Second Hand Smoke Exposure: Yes service: No Current occupational status: disabled Cognitive needs: No Hearing needs: No Vision needs: Yes Questionnaire PHQ-9 Over the last 2 weeks, how often have you been bothered by any of the following problems? 1. Little interest or pleasure in doing things: not at all 2. Feeling down, depressed, or hopeless: not at all 3. Trouble falling or staying asleep, or sleeping too much: not at all 4. Feeling tired or having little energy: not at all 5. Poor appetite or overeating: not at all 6. Feeling bad about yourself - or that you are a failure or have let yourself or your family down: not at all 7. Trouble concentrating on things, such as reading the newspaper or watching television: not at all 8. Moving or speaking so slowly that other people could have noticed. Or the opposite - being so fidgety or restless that you have been moving around a lot more than usual: not at all Source: Developed by Drs. Caesar Barrera, Kajal Zapata, Ian Figueroa and colleagues, with an educational ioana from [employer]. Thrive Questionnaire Date Thrive assessed: 09/01/24 I am a: Patient What is your living situation today?: I choose not to answer this question Within the past 12 months, did the food you bought not last and you didn't have the money to get more?: I choose not to answer this question Within the past 12 months, did you worry whether your food would run out before you got money to buy more?: I choose not to answer this question Do you have trouble paying for medicines?: I choose not to answer this question Do you have trouble getting transportation to medical appointments?: I choose not to answer this question Do you have trouble paying your heating and electricity bill?: I choose not to answer this question Do you have trouble taking care of your child, family member or friend?: I choose not to answer this question Do you have trouble with day-to-day activities such as bathing, preparing meals, shopping, managing finances, etc.?: I choose not to answer this question Are you currently unemployed and looking for a job?: I choose not to answer this question Are you interested in more education?: I choose not to answer this question Please select the resources that you would like help with: None Currently or been in a relationship where the following occur: I choose not to answer THRIVE Score: 0 AUDIT C Alcohol Use Questionnaire (AUDIT-C) 1. How often do you have a drink containing alcohol?: Never 3. How often do you have six or more drinks on one occasion?: Never Total Score: 0 FARIDEH-7 AMB Questionnaire FARIDEH-7 Date FARIDEH - 7 assessed: 09/01/24 Feeling nervous, anxious, or on edge: 0 = Not at all Not being able to stop or control worryin = Not at all Worrying too much about different things: 0 = Not at all Trouble relaxin = Not at all Being so restless that it is hard to sit still: 0 = Not at all Becoming easily annoyed or irritable: 0 = Not at all Feeling afraid as if something awful might happen: 0 = Not at all Total FARIDEH-7 score (0-4 normal; 5-9 mild; 10-14 moderate; 15-21 severe): 0 Source: Developed by Drs. Caesar Barrera, Kajal Zapata, Ian Figueroa and colleagues, with an educational ioana from [employer]. Review of Systems Narrative Review of Systems - General: Reports an increase in weight. - Cardiovascular: Denies chest pain. - Respiratory: Reports occasional wheezing, which he attributes to smoking and allergies. Physical exam (Primary Care) Vital Signs: Last Vital Signs Temp 97.3 F 06/27/25 09:46 Pulse 97 06/27/25 09:46 BP 130/80 06/27/25 10:03 Pulse Ox 96 06/27/25 09:46 Oxygen Delivery Method Room Air 06/27/25 09:46 BMI result Body Mass Index 34.5 Tobacco/Smoking Status: Tobacco use Status Tobacco use date assessed 06/27/25 06/27/25 09:51 Patient Tobacco Use Status Current everyday Tobacco 06/27/25 09:51 Tobacco use type Cigarette 06/27/25 09:51 e-Cigarette/Vaping Use Never Used 06/27/25 09:51 Thrive Assessment: Date of Thrive Assessment Date Thrive assessed 09/01/24 06/27/25 09:51 Currently or been in a relationship where the following occur: I choose not to answer Narrative Physical Exam - Vitals: Blood pressure is 130/80 mmHg. - Respiratory: Lungs are clear to auscultation posteriorly. 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 Hemoglobin A1c goal of less than 6.5. Patient is controlled on metformin 500 mg twice a day but discussed about the increase (2) Hypercholesterolemia: Code(s): E78.00 - Pure hypercholesterolemia, unspecified Category: Medical Plan: Avoid fried foods, chicken skin, eggs, butter margarine, pastries and meat. Be it pork or beef they have a lot of cholesterol LDL goal of less than 100 and triglyceride of less than 150 on simvastatin 5 mg once a day and fenofibrate October 2024 last blood work (3) Obesity (BMI 30-39.9): Code(s): E66.9 - Obesity, unspecified Category: Medical Plan: Diet and exercise discussed concerns about the increase in weight (4) GERD (gastroesophageal reflux disease): Comment: Reflux precautions continue famotidine Code(s): K21.9 - Gastro-esophageal reflux disease without esophagitis Category: Medical Plan: Avoid the foods that causes that usually spicy foods, tomato products, juices, coffee, soda and foods that your sensitive to. After eating do not lie down, allow 3-4 hours before in lie down. And keep the head of bed above 30 degrees to avoid the acid from going up. (5) Nicotine dependence, cigarettes, uncomplicated: Comment: (onset 14yo, 1ppd x 38yrs, 30+PYH) August 2024 Code(s): F17.210 - Nicotine dependence, cigarettes, uncomplicated Category: Medical Plan: Patient is strongly advised to stop smoking (6) Asthma: Code(s): J45.909 - Unspecified asthma, uncomplicated Category: Medical Plan: Patient is advised strongly to stop smoking (7) Schizophrenia: Code(s): F20.9 - Schizophrenia, unspecified Category: Medical Qualifiers: Schizophrenia type: disorganized schizophrenia Qualified Code(s): F20.1 - Disorganized schizophrenia Plan: Continue with counseling and therapy Plan Plan Patient was informed and verbally consented to the use of an ambient scribe for clinic note documentation during this visit. 1. Type 2 Diabetes Mellitus The patient's hemoglobin A1c has increased to 6.2%, and while the goal is less than 6.5%, this represents a worsening of glycemic control. The presence of proteinuria indicates an effect on the kidneys, which can be slowed with better glucose and weight control. The patient will continue on metformin 500 mg twice a day, and an increase in dosage was discussed. New lab work will be ordered to re-evaluate his status before the next visit. 2. Hypercholesterolemia The LDL goal is less than 100 mg/dL and triglyceride goal is less than 150 mg/dL. While his last LDL was good at 67 mg/dL, his triglycerides were elevated. He will continue simvastatin 5 mg once a day and fenofibrate. A repeat lipid panel will be ordered as part of his upcoming blood work. 3. Obesity The patient's weight has increased from 170 lbs to 182 lbs since 2023, which is a concern as it can negatively impact his blood pressure and blood sugar control. Diet and exercise were discussed as huff interventions for weight management. 4. Tobacco Use Disorder The patient confirmed he is still smoking. He was strongly advised to stop smoking. 5. Schizophrenia The patient is advised to continue with counseling and therapy. 6. Gastroesophageal Reflux Disease The plan for reflux includes advising the patient to stop smoking. Discussion Notes I expressed my concern to the patient regarding his recent weight gain to 182 pounds, up from 170 pounds in 2023. I explained that his hemoglobin A1c is rising, now at 6.2% from 5.6%, indicating worsening glycemic control. We discussed that the presence of protein in his urine is a sign of his kidneys being affected by diabetes, and I emphasized that this can be slowed down by improving his sugar and weight control. The importance of smoking cessation, a healthy diet, and increased physical activity were also discussed. I informed the patient that a request for follow-up blood work has been placed, which should be completed before the next visit. I advised him to return for a follow-up appointment in three months. Patient Instructions - You are strongly advised to stop smoking. - It is important to work on your diet and get more exercise to help with weight loss. - Continue taking your metformin and simvastatin as prescribed. - Please get your blood work done before your next appointment. - Continue with your counseling and therapy. - Follow up in the office in three months. Orders: Orders Complete Blood Count Auto Diff Today E11.65 - Type 2 diabetes mellitus with hyperglycemia Comprehensive Met. Panel Today E11.65 - Type 2 diabetes mellitus with hyperglycemia Lipid Panel Today E11.65 - Type 2 diabetes mellitus with hyperglycemia, E78.00 - Pure hypercholesterolemia, unspecified Microalbumin, Random (w Creat) Today E11.65 - Type 2 diabetes mellitus with hyperglycemia Free T4 (Free Thyroxine) Today E11.65 - Type 2 diabetes mellitus with hyperglycemia Thyroid Stimulating Hormone Today E11.65 - Type 2 diabetes mellitus with hyperglycemia Creatinine Urine Today E11.65 - Type 2 diabetes mellitus with hyperglycemia Prostate Specific Antigen Scr Today E11.65 - Type 2 diabetes mellitus with hyperglycemia UA CC w/rflx Micro + Cult Today E11.65 - Type 2 diabetes mellitus with hyperglycemia, R30.0 - Dysuria Vitamin B12 and Folate Today E11.65 - Type 2 diabetes mellitus with hyperglycemia
[2025-06-27 10:03] VITALS: BP 130/80
== END 2025-06-27 10:14 | disposition home or self-care (01) ==
LOC: HO.HMCH 09:42
PROVIDERS: PCP Internal Medicine; Visit Provider Internal Medicine
DX: E11.65 Type 2 diabetes mellitus with hyperglycemia (principal); E78.00 Pure hypercholesterolemia, unspecified; E66.9 Obesity, unspecified; K21.9 Gastro-esophageal reflux disease without esophagitis; F17.210 Nicotine dependence, cigarettes, uncomplicated; J45.909 Unspecified asthma, uncomplicated; F20.1 Disorganized schizophrenia

== ENCOUNTER → 2025-06-27 09:41 | Outpatient (BNVA) | payer MEDICARE, MEDICAID, SELFPAY | PROVIDERS: PCP Internal Medicine; Visit Provider Internal Medicine | DX: E11.65 Type 2 diabetes mellitus with hyperglycemia (principal); E78.00 Pure hypercholesterolemia, unspecified; E66.9 Obesity, unspecified; K21.9 Gastro-esophageal reflux disease without esophagitis; F20.1 Disorganized schizophrenia; J45.909 Unspecified asthma, uncomplicated; F17.210 Nicotine dependence, cigarettes, uncomplicated; Z68.34 Body mass index [BMI] 34.0-34.9, adult | CPT/HCPCS: 99212 ==